=== PATIENT | male | born 1950 | race African-American/Black ===

== ENCOUNTER 2017-10-04 10:00 | Inpatient (IN) | payer MEDICARE, BC ==
[2017-10-04 10:33] VITALS: BMI 31.3
[2017-10-05] MEDS ORDERED: CEFAZOLIN/Water 2 GM/20 ML SYRINGE ONE (05:59)
[2017-10-05] MEDS ORDERED: Albumin 5% 500 ML ONE (06:29)
[2017-10-05] MEDS ORDERED: Midazolam HCl 5 mg/5 ml Vial ONE (06:32)
[2017-10-05] MEDS ORDERED: Fentanyl 250 MCG/5 ML VIAL ONE (06:32)
[2017-10-05] MEDS ORDERED: Dexmedetomidine 200 MCG/2 ML VIAL ONE (06:33)
[2017-10-05] MEDS ORDERED: Vecuronium 10 MG VIAL ONE ×2 (06:33→14:39)
[2017-10-05] MEDS ORDERED: Heparin 10,000 UNITS/1 ML VIAL 30,000 UNITS in Sodium Chloride 0.9% 1,000 ML FS SCH (06:45)
[2017-10-05] MEDS ORDERED: PHENYLEPHRINE-NS 100 MCG/ML 10 ML SYRINGE ONE (09:58)
[2017-10-05 12:22] LABS: Base Excess (BEa) -3.4 mEq/L (0 (+/-) 2.5); CO2 Tension 35.6 mmHg (35.0-45.0); Calcium, Ionized 1.1 mmol/L (1.12-1.30); Hematocrit-ABG 34.2 % (42.0-52.0); Hemoglobin (Hb) 11.6 g/dL (14.0-18.0); O2 Tension (PaO2) 147.2 mmHg (80.0-100.0); Puncture Site ALINE; pH, Arterial 7.39 (7.35-7.45)
[2017-10-05] MEDS ORDERED: Magnesium 2 GM/NS 0.9% 100 ML 2 GM in Premix Bag 1 BAG IVPB SCH (12:57)
[2017-10-05] MEDS ORDERED: hydrALAZINE 20 MG/ML VIAL SLOW IVP PRN (12:57)
[2017-10-05] MEDS ORDERED: CEFAZOLIN/Water 2 GM/20 ML SYRINGE SLOW IVP SCH (12:57)
[2017-10-05] MEDS ORDERED: DOPamine 400 MG/D5W 250 ML 250 ML IVPB PRN (12:57)
[2017-10-05] MEDS ORDERED: HYDROcodone/Acetaminophen 5/325 mg Tablet PO PRN (12:57)
[2017-10-05] MEDS ORDERED: Bisacodyl 10 MG SUPP PR PRN (12:57)
[2017-10-05] MEDS ORDERED: Norepinephrine 8 MG/0.9% NS 250 ML IVPB PRN (12:57)
[2017-10-05] MEDS ORDERED: niCARdipine HCl 25 MG in Sodium Chloride 0.9% 250 ML 240 ML IVPB PRN (12:57)
[2017-10-05] MEDS ORDERED: Fentanyl 100 MCG/2 ML VIAL SLOW IVP PRN ×2 (12:57)
[2017-10-05] MEDS ORDERED: Acetaminophen 325 MG TAB PO PRN (12:57)
[2017-10-05] MEDS ORDERED: Hetastarch 6% 500 ML 500 ML IVPB PRN (12:57)
[2017-10-05] MEDS ORDERED: Nitroglycerin 50 MG/250 ML BOT 250 ML IVPB PRN (12:57)
[2017-10-05] MEDS ORDERED: Promethazine HCl 25 MG/ML VIAL IM PRN (12:57)
[2017-10-05] MEDS ORDERED: Bisacodyl 5 MG TAB PO PRN (12:57)
[2017-10-05] MEDS ORDERED: Post-Op Insulin Drip Protocol IVPB ONE (12:57)
[2017-10-05] MEDS ORDERED: Guaifenesin DM 100-10/5 ML UDCUP PO PRN (12:57)
[2017-10-05] MEDS ORDERED: Mag-Al 1200 mg/1200 mg/30 ML UDCUP PO PRN (12:57)
[2017-10-05 13:07] LABS: #Eosinphils 0.1 thou/uL (0.0-0.7); #Lymphocytes 0.7 thou/uL (1.20-3.40); #Monocytes 0.9 thou/uL (0.11-0.59); #Neutrophils 7.3 thou/uL (1.40-6.50); %Basophils 0.2 % (0.0-1.0); %Eosinophils 1.1 % (0.0-10.0); %Lymphocytes 7.5 % (21.0-51.0); %Monocytes 10.2 % (0.0-10.0); Mean Corpuscular HGB CONC 33.8 g/dL (32.0-36.0); Mean Corpuscular Hemoglobin 31.5 pg (27.0-31.0); Mean Corpuscular Volume 93.4 fl (80.0-94.0); Mean Platelet Volume 6.5 fL (7.4-10.4); Platelet Count 155 thou/uL (130-400); RBC Distribution Width 12.4 % (11.5-14.5)
--- NOTE | 2017-10-05 13:14 | OP ---
DATE OF PROCEDURE: 10/05/2017 PREOPERATIVE DIAGNOSIS: Coronary artery disease. SURGEON: Dr. Efrain Hutchinson PROCEDURE: Coronary bypass graft x4, left internal mammary artery good quality to a severely disease d to distal LAD that was probably 1.5 mm. Saphenous vein good quality to a diseased 1.5 mm high diag onal to a 1.5 mm OM1 and a 1.25 mm OM2. The distal circumflex and right PDA were diffusely and sever samir calcified and could not be redone. I do not foresee reoperation in this gentleman due to poor ta rgets. Following anesthetic induction, the patient was prepped and draped. Dr. Thomas did an endovascu lar vein harvest, right greater saphenous vein while I performed a median sternotomy. After opening the sternum, left internal mammary artery was harvested, widely opening the left pleura. Heparin was given. The mammary was passed posterior to the thymus gland. The aorta had palpable calcification cannulated in a soft spot as was the right atrium cannulated. Cardiopulmonary bypass was instituted. Vessels inspected for grafting. Aorta was cross-clamped and a liter of cold blood cardioplegic giv en through the aortic root. Following completion of this, distal anastomoses were completed. Crossc lamp was removed, partial occluding clamp placed, and 2 proximal anastomoses performed on the aortic root, including the diagonal and the OM2. The OM1 graft was anastomosed to the side of the diagonal graft about 3 cm from the aortic root. The patient was then weaned from cardiopulmonary bypass, miguelito ulas were removed, and protamine was given systemically. Mediastinal and left pleural drains were pl aced, following which the sternum was reapproximated with #7 interrupted wire using vancomycin paste on the edges sternal edges, platelet-enriched blood, and platelet-poor plasma. Subcutaneous tissue a nd skin were closed in layers.
[2017-10-05 13:18] LABS: INR-International Normal Ratio 1.3; PTT 34.8 SEC (22.9-36.1); Prothrombin Time 16.9 SEC (12.0-14.7)
[2017-10-05] MEDS ORDERED: Norepinephrine 8 MG in Sodium Chloride 0.9% 250 ML 242 ML IVPB PRN (13:37)
[2017-10-05 13:38] LABS: Anion Gap 10 mmol/L (10-20); BUN (Urea Nitrogen) 5 mg/dL (8.4-25.7); Calc. Creatinine Clearance 143 mL/min (70-130); Calcium 8.1 mg/dL (7.8-10.44); Carbon Dioxide 21 mmol/L (23-31); Chloride 109 mmol/L (98-107); Estimated GFR-MDRD Greater than 90; Glucose 116 mg/dL (80-115); Potassium 4.3 mmol/L (3.5-5.1); Sodium 136 mmol/L (136-145)
[2017-10-05] MEDS: Lactated Ringer's 1,000 ML IV SCH (13:40)
[2017-10-05] MEDS: CEFAZOLIN/Water 2 GM/20 ML SYRINGE SLOW IVP SCH ×2 (13:41→22:00)
[2017-10-05] MEDS: Ondansetron HCl/PF 4 MG/2 ML Vial IVP PRN (13:44)
[2017-10-05] MEDS ORDERED: Insulin Regular 100 UNITS in Sodium Chloride 0.9% 100 ML IVPB SCH (13:45)
--- NOTE | 2017-10-05 13:52 | RAD ---
AP CHEST: History: Open heart surgery. Date: 10-05-17 Comparison: 03-15-06 FINDINGS: AP chest demonstrates interval sternotomy wire seen. The patient has been intubated. Right subclavian central line is seen. No evidence of pneumonia or pneumothorax is seen. IMPRESSION: Status post thoracotomy. No acute intrathoracic abnormality is seen. POS: [facility]
[2017-10-05 14:20] LABS: Actual Bicarbonate (HCO3a) 20.6 mEq/L (22-26); Base Excess (BEa) -4.4 mEq/L (0 (+/-) 2.5); CO2 Tension 37.6 mmHg (35.0-45.0); Calcium, Ionized 1.1 mmol/L (1.12-1.30); Hematocrit-ABG 36.4 % (42.0-52.0); Hemoglobin (Hb) 12.2 g/dL (14.0-18.0); O2 Tension (PaO2) 105.3 mmHg (80.0-100.0); Puncture Site ALINE; pH, Arterial 7.36 (7.35-7.45)
[2017-10-05] MEDS ORDERED: Papaverine 60 MG/2 ML VIAL ONE (14:37)
[2017-10-05] MEDS ORDERED: Magnesium 5 GM/10 ML VIAL ONE (14:37)
[2017-10-05] MEDS ORDERED: Protamine Sulfate 250 MG/25 ML VIAL ONE (14:37)
[2017-10-05] MEDS ORDERED: Potassium Chloride 60 MEQ/30 ML VIAL ONE (14:37)
[2017-10-05] MEDS ORDERED: Nitroglycerin 50 MG/250 ML BOT ONE (14:37)
[2017-10-05] MEDS ORDERED: Cardioplegic Soln 1,000 ML BAG ONE (14:37)
[2017-10-05] MEDS ORDERED: Sodium Bicarb 50 MEQ/50 ML VIAL ONE (14:37)
[2017-10-05] MEDS ORDERED: Sodium Bicarb 50 MEQ/50 ML Abboject 8.4% SYRINGE ONE (14:37)
[2017-10-05] MEDS ORDERED: Thrombin 5000 UNITS/5 ML VIAL ONE (14:37)
[2017-10-05] MEDS ORDERED: Heparin 5,000 UNITS/ML VIAL ONE (14:37)
[2017-10-05] MEDS ORDERED: Heparin 30,000 units/30 ml VIAL ONE (14:37)
[2017-10-05] MEDS ORDERED: Lidocaine 2% PF 100 mg/5 ml Syringe ONE (14:37)
[2017-10-05] MEDS ORDERED: Calcium Chloride 1 GM/10 ML Abboject SYRINGE ONE (14:37)
[2017-10-05] MEDS ORDERED: Aminocaproic Acid 5 GM/20 ML VIAL ONE (14:37)
[2017-10-05] MEDS ORDERED: PROPOFOL 200 MG/20 ML VIAL ONE (14:39)
[2017-10-05] MEDS ORDERED: Lidocaine 1% PF 5 ML VIAL ONE (14:39)
[2017-10-05] MEDS: Ketorolac Tromethamine 30 MG/ML VIAL IVP SCH ×2 (17:36→23:48)
[2017-10-05 18:50] LABS: Hemoglobin 12.3 g/dL (14.0-18.0)
[2017-10-05 19:01] LABS: Potassium 4.1 mmol/L (3.5-5.1)
--- NOTE | 2017-10-05 19:35 | CON ---
DATE OF CONSULT: 10/05/17 HISTORY OF PRESENT ILLNESS: The patient is a 67-year-old gentleman with a history of coronary artery disease who underwent tobias ry bypass graft surgery. The patient was seen in 2016 and underwent a cardiac catheterization. He w as found to have normal left ventricular ejection fraction 55% to 60%. The patient had a 70% mid LAD lesion, diffuse distal LAD disease. Left circumflex artery had a 90% lesion in the first obtuse mar ginal branch and a 90% distal lesion. The right coronary artery had a 20% proximal, a 99% mid stenosi s, 70% distal stenosis. The patient today underwent coronary bypass graft surgery. PAST MEDICAL HISTORY: 1. Coronary artery disease. 2. Hypertension. 3. Dyslipidemia. 4. Prostate carcinoma. 5. Gout. 6. Arthritis PAST SURGICAL HISTORY: He has had coronary bypass graft surgery. He has had wrist surgery and he has had hip surgery. SOCIAL HISTORY: He quit smoking 1 month ago. MEDICATIONS: See nursing list. PHYSICAL EXAMINATION: GENERAL: This is a middle-aged gentleman who is drowsy with a blood pressure of 115/49. NECK: No jugular vein distention. LUNGS: Clear to auscultation. HEART: Regular rate and rhythm, normal S1, S2. ABDOMEN: Distended. EXTREMITIES: Showed trace edema. LABORATORY: His white blood count 9.0, hemoglobin 12.0, hematocrit 35.5, platelets are 155. Sodium 136, potassi um 4.3, chloride 109, bicarbonate 21, BUN 5, creatinine 0.67. EKG revealed normal sinus rhythm, right bundle branch block, left anterior fascicular block. IMPRESSION: 1. Severe coronary artery disease. 2. Status coronary bypass surgery x4. 3. Hypertension. 4. Noncompliance. This gentleman presents status post coronary bypass surgery. From a cardiac standpoint, he needs to b e on antiplatelet medication, high dose statin therapy, beta alon therapy. We will follow this pat ient with you through his hospitalization.
[2017-10-05] MEDS: Atorvastatin Calcium 40 MG TAB PO SCH (20:32)
[2017-10-05] MEDS: Famotidine/PF 20 mg/2ml Vial SLOW IVP SCH (20:32)
[2017-10-05] MEDS: Morphine 4 MG/ML VIAL IV PRN (20:47)
[2017-10-05] MEDS ORDERED: Atorvastatin Calcium 10 MG TAB PO SCH ×2 (21:00)
[2017-10-06] MEDS: Morphine 4 MG/ML VIAL IV PRN ×2 (01:45→05:30)
[2017-10-06] MEDS: HYDROcodone/Acetaminophen 5/325 mg Tablet PO PRN ×3 (02:04→16:13)
[2017-10-06] MEDS: Ondansetron HCl/PF 4 MG/2 ML Vial IVP PRN (02:05)
[2017-10-06] MEDS: Lactated Ringer's 1,000 ML IV SCH (03:38)
[2017-10-06 05:44] LABS: #Lymphocytes 1.2 thou/uL (1.20-3.40); #Monocytes 1.2 thou/uL (0.11-0.59); #Neutrophils 6.5 thou/uL (1.40-6.50); %Basophils 0.2 % (0.0-1.0); %Eosinophils 0.3 % (0.0-10.0); %Monocytes 13.3 % (0.0-10.0); %Neutrophils 73.2 % (42.0-75.0); Hemoglobin 11.2 g/dL (14.0-18.0); Mean Corpuscular Hemoglobin 31.6 pg (27.0-31.0); Mean Corpuscular Volume 93.1 fl (80.0-94.0); Mean Platelet Volume 6.5 fL (7.4-10.4); Platelet Count 169 thou/uL (130-400); RBC Distribution Width 12.5 % (11.5-14.5); Red Blood Cell (RBC) Count 3.54 mill/uL (4.70-6.10); White Blood Cell (WBC) Count 8.8 thou/uL (4.8-10.8)
[2017-10-06 06:03] LABS: Anion Gap 11 mmol/L (10-20); BUN (Urea Nitrogen) 6 mg/dL (8.4-25.7); Calc. Creatinine Clearance 110 mL/min (70-130); Calcium 8.2 mg/dL (7.8-10.44); Carbon Dioxide 24 mmol/L (23-31); Chloride 104 mmol/L (98-107); Estimated GFR-MDRD Greater than 90; Glucose 92 mg/dL (80-115); Potassium 3.6 mmol/L (3.5-5.1); Sodium 135 mmol/L (136-145)
[2017-10-06] MEDS: Ketorolac Tromethamine 30 MG/ML VIAL IVP SCH ×4 (06:04→23:19)
[2017-10-06] MEDS: CEFAZOLIN/Water 2 GM/20 ML SYRINGE SLOW IVP SCH (06:04)
[2017-10-06] MEDS ORDERED: Metoprolol Tartrate 25 MG TAB PO SCH (09:00)
--- NOTE | 2017-10-06 09:16 | RAD ---
PORTABLE CHEST: History: Post op sternotomy. Comparison: 10-05-17 FINDINGS: The lungs are clear. No infiltrate or significant effusion. Heart is mildly enlarged with post op tray rnotomy change. Central line appears in adequate position with the tip overlying the right atrium. IMPRESSION: No acute lung process. POS: [facility]
[2017-10-06] MEDS: Famotidine 20 MG TAB PO SCH ×2 (09:39→20:41)
[2017-10-06] MEDS: Aspirin 325 MG TAB PO SCH (09:39)
[2017-10-06] MEDS: Famotidine/PF 20 mg/2ml Vial SLOW IVP SCH (11:19)
[2017-10-06] MEDS: Potassium Chloride 20 MEQ/100 ML PREMIX BAG IVPB PRN (16:13)
--- NOTE | 2017-10-06 20:20 | EKG ---
Test Reason : POST CABG Blood Pressure : / mmHG Vent. Rate : 063 BPM Atrial Rate : 063 BPM P-R Int : 182 ms QRS Dur : 136 ms QT Int : 462 ms P-R-T Axes : 058 -65 -48 degrees QTc Int : 472 ms Normal sinus rhythm Left axis deviation Right bundle branch block Minimal voltage criteria for LVH, may be normal variant T wave abnormality, consider inferior ischemia Abnormal ECG When compared with ECG of 04-OCT-2017 11:10, (Unconfirmed) T wave inversion now evident in Inferior leads Nonspecific T wave abnormality, worse in Lateral leads Confirmed by VIANNEY STILES (2) on 10/06/2017 8:20:38 PM Referred By: REBECA Confirmed By:VIANNEY STILES
[2017-10-06] MEDS: Atorvastatin Calcium 40 MG TAB PO SCH (20:40)
[2017-10-06] MEDS ORDERED: Famotidine 20 MG TAB PO SCH (21:00)
[2017-10-07 04:44] LABS: #Eosinphils 0.1 thou/uL (0.0-0.7); #Lymphocytes 1.1 thou/uL (1.20-3.40); #Monocytes 1.4 thou/uL (0.11-0.59); #Neutrophils 7.4 thou/uL (1.40-6.50); %Basophils 0.3 % (0.0-1.0); %Eosinophils 1.3 % (0.0-10.0); %Lymphocytes 10.9 % (21.0-51.0); %Monocytes 13.8 % (0.0-10.0); %Neutrophils 73.6 % (42.0-75.0); Hemoglobin 11.3 g/dL (14.0-18.0); Mean Corpuscular HGB CONC 34.1 g/dL (32.0-36.0); Mean Corpuscular Hemoglobin 31.6 pg (27.0-31.0); Mean Corpuscular Volume 92.6 fl (80.0-94.0); Mean Platelet Volume 6.9 fL (7.4-10.4); Platelet Count 159 thou/uL (130-400); RBC Distribution Width 12.3 % (11.5-14.5); Red Blood Cell (RBC) Count 3.57 mill/uL (4.70-6.10)
[2017-10-07 04:53] LABS: Anion Gap 11 mmol/L (10-20); BUN (Urea Nitrogen) 8 mg/dL (8.4-25.7); Calc. Creatinine Clearance 107 mL/min (70-130); Calcium 8.7 mg/dL (7.8-10.44); Carbon Dioxide 26 mmol/L (23-31); Chloride 100 mmol/L (98-107); Estimated GFR-MDRD Greater than 90; Glucose 112 mg/dL (80-115); Potassium 3.7 mmol/L (3.5-5.1); Sodium 133 mmol/L (136-145)
[2017-10-07] MEDS: Potassium Chloride 20 MEQ/100 ML PREMIX BAG IVPB PRN (06:35)
[2017-10-07] MEDS: Ketorolac Tromethamine 30 MG/ML VIAL IVP SCH ×3 (06:35→18:33)
[2017-10-07] MEDS: Aspirin 325 MG TAB PO SCH (08:34)
[2017-10-07] MEDS: Famotidine 20 MG TAB PO SCH ×2 (08:34→21:41)
--- NOTE | 2017-10-07 09:28 | RAD ---
CHEST ONE VIEW: History: Status post open heart surgery. Comparison: 10-06-17 FINDINGS: Re-demonstration of sternotomy wires and right sided central venous catheter. Removal of left sided c hest tube. No pneumothorax. Stable configuration of the cardiac silhouette. IMPRESSION: Findings compatible with recent open heart surgery. POS: [facility]
[2017-10-07] MEDS ORDERED: Lorazepam 2 MG/ML VIAL ONE (11:57)
[2017-10-07] MEDS ORDERED: Lorazepam 2 MG/ML VIAL SLOW IVP SCH ×3 (12:30→15:00)
[2017-10-07] MEDS ORDERED: Haloperidol Lactate 5 MG/ML VIAL IVPB SCH (14:45)
[2017-10-07] MEDS ORDERED: Haloperidol Lactate 5 MG/ML VIAL ONE (14:55)
[2017-10-07] MEDS: Lorazepam 2 MG/ML VIAL SLOW IVP PRN (19:36)
--- NOTE | 2017-10-07 19:42 | CON ---
DATE OF CONSULTATION: 10/07/2017 HISTORY OF PRESENT ILLNESS: Sofiya Rinaldi is a 67-year-old male who was in the Critical Care Unit after heart surgery. He became confused today, I was consulted. He has never been an inpatient here. It looks like, reviewing records, that he is followed by Dr. Luis Manuel ahn. He tells me he has had 6 heart attacks in the past. He actually has had a cardiac catheterization in 2016 showing a 70% LAD mid lesion, diffuse distal LA D, 90% circumflex at the first obtuse marginal, a 90% distal lesion, and a 99% right coronary. This is from reviewing Dr. Maza's note. This is because he could not give me a history. Apparently, he underwent coronary bypass grafting and has been cared for in the ICU since. He is ext ubated. His tubes are out. He is getting up, wanted to get dressed and go home. He denies drinking. He says he quit smoking 10 years ago. He has told other physicians he does marie merino. PAST MEDICAL HISTORY: Remarkable for lipid disorder, hypertension, prostate cancer, gout, and arthri tis. PAST SURGICAL HISTORY: He has had wrist surgery and hip surgery in the past. PHYSICAL EXAMINATION: GENERAL: He is in no distress. VITAL SIGNS: Heart rate is 92, respiratory rate is 20, oximetry is 99 on room air. LUNGS: Clear. HEART: Regular rhythm. S1 and S2 are normal. ABDOMEN: Soft and nontender. EXTREMITIES: Without clubbing, cyanosis, or edema. LABORATORY DATA: White count 10, hemoglobin 11.3, platelets 159. Sodium 133, potassium 3.7, chloride 100, bicarbonate 26, BUN 8, creatinine 0.76. IMPRESSION: 1. Status post coronary artery bypass grafting. 2. ? alcohol withdrawal versus just a critical illness, psychosis. He will be given one dose of IV Haldol with 1 mg of IV Ativan since he is trying to walk out of the I CU. We will put him on routine IM Haldol after that with p.r.n. Ativan. Critical care time, 30 minutes.
[2017-10-07] MEDS: Atorvastatin Calcium 40 MG TAB PO SCH (21:41)
[2017-10-08] MEDS: Ketorolac Tromethamine 30 MG/ML VIAL IVP SCH ×2 (00:40→06:50)
[2017-10-08] MEDS: Lorazepam 2 MG/ML VIAL SLOW IVP PRN (00:41)
[2017-10-08 04:32] LABS: #Eosinphils 0.2 thou/uL (0.0-0.7); #Monocytes 1.1 thou/uL (0.11-0.59); #Neutrophils 7.6 thou/uL (1.40-6.50); %Basophils 0.3 % (0.0-1.0); %Eosinophils 1.8 % (0.0-10.0); %Lymphocytes 9.9 % (21.0-51.0); %Monocytes 11.4 % (0.0-10.0); %Neutrophils 76.7 % (42.0-75.0); Mean Corpuscular Hemoglobin 31.3 pg (27.0-31.0); Mean Corpuscular Volume 91.9 fl (80.0-94.0); Mean Platelet Volume 6.8 fL (7.4-10.4); Platelet Count 185 thou/uL (130-400); RBC Distribution Width 12.2 % (11.5-14.5); Red Blood Cell (RBC) Count 3.51 mill/uL (4.70-6.10)
[2017-10-08 04:34] LABS: Anion Gap 10 mmol/L (10-20); BUN (Urea Nitrogen) 8 mg/dL (8.4-25.7); Calc. Creatinine Clearance 135 mL/min (70-130); Calcium 9.1 mg/dL (7.8-10.44); Carbon Dioxide 26 mmol/L (23-31); Chloride 102 mmol/L (98-107); Estimated GFR-MDRD Greater than 90; Glucose 95 mg/dL (80-115); Potassium 4.2 mmol/L (3.5-5.1); Sodium 134 mmol/L (136-145)
[2017-10-08] MEDS ORDERED: Milk Of Magnesia 30 ML UDCUP PO PRN (07:14)
[2017-10-08] MEDS ORDERED: Bisacodyl 10 MG SUPP PR PRN (07:14)
[2017-10-08] MEDS ORDERED: Nitroglycerin 0.4 MG TAB (25 Tab Bottle) SL PRN (07:14)
[2017-10-08] MEDS ORDERED: Mineral Oil ENEMA PR PRN (07:14)
[2017-10-08] MEDS ORDERED: HYDROcodone/Acetaminophen 5/325 mg Tablet PO PRN (07:14)
[2017-10-08] MEDS ORDERED: Guaifenesin DM 100-10/5 ML UDCUP PO PRN (07:14)
[2017-10-08] MEDS ORDERED: Mag-Al 1200 mg/1200 mg/30 ML UDCUP PO PRN (07:14)
[2017-10-08] MEDS ORDERED: Acetaminophen 325 MG TAB PO PRN (07:14)
[2017-10-08] MEDS ORDERED: Bisacodyl 5 MG TAB PO PRN (07:14)
[2017-10-08] MEDS: Aspirin 325 MG TAB PO SCH (07:49)
[2017-10-08] MEDS: Famotidine 20 MG TAB PO SCH ×2 (07:50→20:51)
--- NOTE | 2017-10-08 08:39 | RAD ---
PORTABLE AP CHEST RADIOGRAPH: Date: 10-08-17 History: Post open heart surgery. Comparison: 10-07-17 FINDINGS: Post-surgical change related to CABG are again noted. The right subclavian central venous catheter is unchanged in position. Cardiac silhouette is stable in size and magnified by projection. There is mi ld elevation of the right hemidiaphragm. Lungs otherwise appear clear. The pulmonary vasculature is w ithin normal limits. There has been no interval change from prior examination. IMPRESSION: Stable chest. POS: [facility]
--- NOTE | 2017-10-08 11:39 | PRG ---
DATE OF SERVICE: 10/08/2017 SUBJECTIVE: Sofiya Rinaldi is more cooperative today. PHYSICAL EXAMINATION: VITAL SIGNS: He is afebrile, heart rate 83, respiratory rate 17, oximetry is 96% on room air, blood pressure 160/84. LUNGS: Clear. HEART: Regular rhythm. S1 and S2 are normal. ABDOMEN: Soft and nontender. EXTREMITIES: Without clubbing, cyanosis, or edema. LABORATORY DATA: White count 10, hemoglobin 11, platelets 185. Sodium 134, potassium 4.2, chloride 102, bicarb 26, BUN 8, creatinine 0.69. IMPRESSION: 1. Status post coronary artery bypass grafting. 2. Encephalopathy (ICE psychosis versus ? alcohol withdrawal), much better today. He is stable to emili lin out of the Critical Care environment.
[2017-10-08] MEDS: Atorvastatin Calcium 40 MG TAB PO SCH (20:51)
[2017-10-09] MEDS: Aspirin 325 MG TAB PO SCH (07:28)
[2017-10-09] MEDS: Famotidine 20 MG TAB PO SCH ×2 (07:29→21:19)
--- NOTE | 2017-10-09 11:22 | PRG ---
DATE OF SERVICE: 10/09/2017 SUBJECTIVE: He is doing well. He has no complaints. PHYSICAL EXAMINATION: VITAL SIGNS: On exam, temperature is 98.0, pulse 96, respirations 16, O2 sat 96%. HEENT: Unremarkable. NECK: No JVD. CHEST: Clear. CARDIAC: S1 and S2, regular. ABDOMEN: Soft. EXTREMITIES: No edema. LABORATORY DATA - no new labs were done today. ASSESSMENT: 1. Status post coronary artery bypass grafting surgery. 2. Improved encephalopathy. PLAN: I think he is being transferred out to the floor. There are no acute pulmonary concerns. We are available for help as needed.
--- NOTE | 2017-10-09 14:25 | PDOC.CTH ---
<Nichole Mckinney - Last Filed: 10/09/17 14:24> Cardiology Progress Note - Subjective The pt seen and examined. No overnight events. No cardiac complaints. He has walked to nursing station today without any difficulties. - Objective Vital Signs Temp Pulse Pulse Pulse Resp BP BP 10/09/17 11:25 99 85 180/91 H 170/92 H 10/09/17 11:01 98.2 F 91 18 10/09/17 10:58 98.2 F 91 18 10/09/17 08:25 94 94 164/81 H 145/75 H 10/09/17 08:00 98.0 F 96 16 10/09/17 07:30 98.0 F 10/09/17 04:00 98.4 F BP Pulse Ox 10/09/17 11:25 10/09/17 11:01 98 10/09/17 10:58 174/90 H 98 10/09/17 08:25 10/09/17 08:00 96 10/09/17 07:30 10/09/17 04:00 94 L Weight 187 lb 13.341 oz 10/08/17 10/09/17 10/10/17 06:59 06:59 06:59 Intake Total 710 730 240 Output Total 3915 1500 Balance -3205 -770 240 - Physical Examination General/Neuro: alert & oriented x3 Neck: no JVD present Lungs: CTA (diminished at bases) Heart: RRR Abdomen: soft Extremities: other: (No edema) - Telemetry Telemetry Rhythm: SR - Labs Result Diagrams: 10/08/17 04:12 10/08/17 04:12 - Assessment/Plan 1. Severe 3V CAD with s/p CABG x 4 on 10/05/17 with ABDI-distal LAD, saph-Diag, OM1, and OM2. - stable with ASA 325mg, Lipitor 40mg daily, and Metoprolol 50mg daily. Start Lisinopril 10mg daily; cont. to monitor on tele 2. HTN - start Lisinopril 10mg daily; cont. to monitor BP 3. Hyperlipidemia - on Statin 4. Prostate Carcinoma - 5. Ex smoker, quit 1 month ago - Smoking cessation education given MAR reviewed Review of Systems - Review of Systems Constitutional: reports: no symptoms reported EENTM: reports: no symptoms reported Respiratory: reports: no symptoms reported Cardiac (ROS): reports: no symptoms reported ABD/GI: reports: no symptoms reported : reports: no symptoms reported Musculoskeletal: reports: no symptoms reported <Colton Rose - Last Filed: 10/09/17 23:06> Cardiology Progress Note - Objective Vital Signs Temp Pulse Pulse Pulse Resp BP BP 10/09/17 21:15 98.3 F 91 16 10/09/17 16:28 99.4 F 84 19 10/09/17 11:25 99 85 180/91 H 170/92 H BP Pulse Ox 10/09/17 21:15 138/79 97 10/09/17 16:28 155/78 H 96 10/09/17 11:25 Weight 187 lb 13.341 oz 10/08/17 10/09/17 10/10/17 06:59 06:59 06:59 Intake Total 710 730 960 Output Total 3915 1500 250 Balance -3205 -770 710 - Labs Result Diagrams: 10/08/17 04:12 10/08/17 04:12 - Assessment/Plan Pt. was seen and eval. by me. I agree with the A/P by the SLIVER MACHINE OPERATOR. We have discussed the pt. and the plan
[2017-10-09] MEDS: Atorvastatin Calcium 40 MG TAB PO SCH (21:20)
[2017-10-10] MEDS ORDERED: hydrALAZINE 20 MG/ML VIAL SLOW IVP PRN (01:01)
[2017-10-10] MEDS ORDERED: Sodium Chloride 0.9% 10 ML ONE (07:36)
[2017-10-10] MEDS ORDERED: Lisinopril 10 MG TAB PO SCH ×2 (09:00→11:10)
[2017-10-10] MEDS: Aspirin 325 MG TAB PO SCH (09:32)
[2017-10-10] MEDS: Famotidine 20 MG TAB PO SCH (09:32)
--- NOTE | 2017-10-10 10:42 | PDOC.CTH ---
Cardiology Progress Note - Objective Vital Signs Temp Pulse Resp BP BP Pulse Ox 10/10/17 09:33 168/79 H 10/10/17 08:58 98.3 F 98 19 168/79 H 98 10/10/17 04:00 98.6 F 89 16 135/61 95 10/10/17 01:05 90 172/84 H 10/10/17 00:00 98.8 F 90 20 191/92 H 95 Weight 198 lb 9 oz 10/09/17 10/10/17 10/11/17 06:59 06:59 06:59 Intake Total 730 1200 Output Total 1500 250 Balance -770 950 - Physical Examination General/Neuro: alert & oriented x3 Neck: carotid US brisk Lungs: CTA Heart: RRR Abdomen: NT/ND, soft - Labs Result Diagrams: 10/08/17 04:12 10/08/17 04:12 - Assessment/Plan 1. Severe 3V CAD with s/p CABG x 4 on 10/05/17 with ABDI-distal LAD, saph-Diag, OM1, and OM2. - stable with ASA 325mg, Lipitor 40mg daily, and Metoprolol 50mg daily. Cont. Lisinopril 10mg daily; okay to d/c to home. F/U with Dr. Maza in 1 month. 2. HTN - on Lisinopril 10mg daily; increase to 20mg qd. cont. to monitor BP 3. Hyperlipidemia - on Statin 4. Prostate Carcinoma - 5. Ex smoker, quit 1 month ago - Smoking cessation education given MAR reviewed
[2017-10-10] MEDS ORDERED: Lisinopril 20 MG TAB PO SCH (11:00)
[2017-10-10 12:17] VITALS: BP 157/75; TEMP 98.1
[2017-10-11] MEDS ORDERED: Lisinopril 20 MG TAB PO SCH (09:00)
[2017-10-12 11:43] LABS: Actual Bicarbonate (HCO3a) 22.3 mEq/L (22-26); Base Excess (BEa) -1.1 mEq/L (0 (+/-) 2.5); CO2 Tension 33.4 mmHg (35.0-45.0); Hemoglobin (Hb) 13.3 g/dL (14.0-18.0); O2 Tension (PaO2) 431.6 mmHg (80.0-100.0); pH, Arterial 7.44 (7.35-7.45)
[2017-10-12 11:44] LABS: Base Excess (BEa) -2.7 mEq/L (0 (+/-) 2.5); CO2 Tension 32.9 mmHg (35.0-45.0); Hematocrit-ABG 38.3 % (42.0-52.0); Hemoglobin (Hb) 12.4 g/dL (14.0-18.0); O2 Tension (PaO2) 497.1 mmHg (80.0-100.0); pH, Arterial 7.42 (7.35-7.45)
[2017-10-12 11:44] LABS: Analyzer IN Cardio OR; Calcium, Ionized 1.2 mmol/L (1.12-1.30); Puncture Site ALINE
[2017-10-12 11:45] LABS: Actual Bicarbonate (HCO3a) 23.7 mEq/L (22-26); Base Excess (BEa) -2.3 mEq/L (0 (+/-) 2.5); CO2 Tension 46.1 mmHg (35.0-45.0); Hematocrit-ABG 27.3 % (42.0-52.0); Hemoglobin (Hb) 9.4 g/dL (14.0-18.0); O2 Tension (PaO2) 385.1 mmHg (80.0-100.0); pH, Arterial 7.33 (7.35-7.45)
[2017-10-12 11:45] LABS: Analyzer IN Cardio OR; Calcium, Ionized 1.2 mmol/L (1.12-1.30); Puncture Site ALINE
[2017-10-12 11:46] LABS: Analyzer IN Cardio OR; Puncture Site ALINE
[2017-10-12 11:46] LABS: Actual Bicarbonate (HCO3v) 25 mEq/L (22-26); Analyzer IN Cardio OR; Base Excess -1.6 mEq/L (0 (+/- 2.5)); pH (venous) 7.31 (7.35-7.45)
[2017-10-12 11:47] LABS: Calcium, Ionized 1.06 mmol/L (1.16-1.32); Chloride (ABG LAB) 99 mmol/L (98-106); Hematocrit-VBG 23.2 % (37-51); Hemoglobin (Hb) 8.3 g/dL (12.6-17.4); Potassium - ABG Lab 4.4 mmol/L (3.70-5.30); Sodium 135.6 mmol/L (133-146)
[2017-10-12 12:58] LABS: Analyzer IN Cardio OR
[2017-10-12 12:59] LABS: Actual Bicarbonate (HCO3v) 25 mEq/L (22-26); Base Excess -1.5 mEq/L (0 (+/- 2.5)); Calcium, Ionized 1.09 mmol/L (1.16-1.32); Chloride (ABG LAB) 99 mmol/L (98-106); Hematocrit-VBG 28.4 % (37-51); Hemoglobin (Hb) 9.1 g/dL (12.6-17.4); Potassium - ABG Lab 4.7 mmol/L (3.70-5.30); Sodium 135.4 mmol/L (133-146); pH (venous) 7.31 (7.35-7.45)
[2017-10-12 13:01] LABS: Base Excess (BEa) -2.8 mEq/L (0 (+/-) 2.5); CO2 Tension 44.9 mmHg (35.0-45.0); Hematocrit-ABG 27.9 % (42.0-52.0); Hemoglobin (Hb) 9.1 g/dL (14.0-18.0); pH, Arterial 7.33 (7.35-7.45)
[2017-10-12 13:02] LABS: Analyzer IN Cardio OR; Calcium, Ionized 1.1 mmol/L (1.12-1.30); Puncture Site ALINE
[2017-10-12 13:02] LABS: Actual Bicarbonate (HCO3a) 20.9 mEq/L (22-26); Base Excess (BEa) -3.3 mEq/L (0 (+/-) 2.5); CO2 Tension 34.4 mmHg (35.0-45.0); Hematocrit-ABG 31.7 % (42.0-52.0); Hemoglobin (Hb) 10.6 g/dL (14.0-18.0); O2 Tension (PaO2) 178.6 mmHg (80.0-100.0)
[2017-10-12 13:03] LABS: Analyzer IN Cardio OR; Calcium, Ionized 1.2 mmol/L (1.12-1.30); Puncture Site ALINE
== END 2017-10-10 14:13 | disposition home or self-care (01) | DRG 235 ==
LOC: SURG A 10-05 05:32 → CCU 10-05 11:31 → 2NO 10-09 11:03
PROVIDERS: ADMIT Thoracic Surgery (Cardiothoracic Vascular Surgery); ATTEND Thoracic Surgery (Cardiothoracic Vascular Surgery)
PROC: 02100Z9 Bypass Coronary Artery, One Artery from Left Internal Mammary, Open Approach (ICD-10-PCS; principal; 2017-10-05)
PROC: 021209W Bypass Coronary Artery, Three Arteries from Aorta with Autologous Venous Tissue, Open Approach (ICD-10-PCS; 2017-10-05)
PROC: 06BP3ZZ Excision of Right Saphenous Vein, Percutaneous Approach (ICD-10-PCS; 2017-10-05)
PROC: 5A1221Z Performance of Cardiac Output, Continuous (ICD-10-PCS; 2017-10-05)
DX: I25.10 Atherosclerotic heart disease of native coronary artery without angina pectoris (principal); G93.40 Encephalopathy, unspecified; F05 Delirium due to known physiological condition; I10 Essential (primary) hypertension; Z85.46 Personal history of malignant neoplasm of prostate; M10.9 Gout, unspecified; M19.90 Unspecified osteoarthritis, unspecified site; Z91.19 Patient's noncompliance with other medical treatment and regimen; I70.228 Atherosclerosis of native arteries of extremities with rest pain, other extremity; F17.210 Nicotine dependence, cigarettes, uncomplicated; E78.2 Mixed hyperlipidemia
CPT/HCPCS: 36415; 36416; 71045; 80048; 82805; 85025; 85610; 85730; 86850; 86900; 86901; 86922; 93005; 93010; 93798; 94002; 94150; 94640; A4216; J0360; J1630; J1642; J1644; J1815; J1885; J2001; J2060; J2250; J2270; J2405; J2440; J2704; J2720; J3010; J3370; J3475; J3480; J7050; J7620; P9045; S0017; S0028

== ENCOUNTER 2017-10-04 10:12 | Outpatient (CLI) | payer MEDICARE, BC ==
[2017-10-04 12:29] LABS: Hemoglobin 14.5 g/dL (14.0-18.0); Mean Corpuscular HGB CONC 33.9 g/dL (32.0-36.0); Mean Corpuscular Hemoglobin 31.3 pg (27.0-31.0); Mean Corpuscular Volume 92.3 fl (80.0-94.0); Mean Platelet Volume 6.6 fL (7.4-10.4); Platelet Count 269 thou/uL (130-400); RBC Distribution Width 12.5 % (11.5-14.5); Red Blood Cell (RBC) Count 4.63 mill/uL (4.70-6.10); White Blood Cell (WBC) Count 7.2 thou/uL (4.8-10.8)
[2017-10-04 12:50] LABS: Anion Gap 9 mmol/L (10-20); BUN (Urea Nitrogen) 7 mg/dL (8.4-25.7); Calc. Creatinine Clearance 0 mL/min (70-130); Calcium 9.8 mg/dL (7.8-10.44); Carbon Dioxide 29 mmol/L (23-31); Chloride 100 mmol/L (98-107); Estimated GFR-MDRD Greater than 90; Glucose 87 mg/dL (80-115); Potassium 4.4 mmol/L (3.5-5.1); Sodium 134 mmol/L (136-145)
--- NOTE | 2017-10-06 20:13 | EKG ---
Test Reason : Blood Pressure : / mmHG Vent. Rate : 070 BPM Atrial Rate : 070 BPM P-R Int : 168 ms QRS Dur : 148 ms QT Int : 434 ms P-R-T Axes : 068 -58 023 degrees QTc Int : 468 ms Normal sinus rhythm Right bundle branch block Left anterior fascicular block Bifascicular block Left ventricular hypertrophy with QRS widening Abnormal ECG When compared with ECG of 08-JUL-2010 08:47, T wave inversion no longer evident in Anterior leads Confirmed by VIANNEY STILES (2) on 10/06/2017 8:12:55 PM Referred By: GURWINDER Confirmed By:VIANNEY STILES
== END 2017-10-04 10:13 | disposition home or self-care (01) ==
LOC: LABBT 10:12
PROVIDERS: ATTEND Thoracic Surgery (Cardiothoracic Vascular Surgery)
DX: Z01.818 Encounter for other preprocedural examination (principal); I25.10 Atherosclerotic heart disease of native coronary artery without angina pectoris
CPT/HCPCS: 86850; 86900; 86901; 86922; 93005; 93010

== ENCOUNTER 2018-04-08 07:36 | Outpatient (CLI) | payer MEDICARE, BC ==
[2018-04-08 08:23] LABS: Estimated GFR-MDRD - POC Greater than 90
--- NOTE | 2018-04-08 11:57 | CT ---
CT ANGIOGRAM OF ABDOMINAL AORTA WITH BILATERAL LOWER EXTREMITY RUNOFF: Date: 04/08/18 HISTORY: Peripheral arterial disease. Coronary artery disease. Atherosclerosis. COMPARISON: None. CORRELATION: Abdomen and pelvic CT dated 01/08/11. TECHNIQUE: CT angiogram of the abdominal aorta and bilateral lower extremity runoff is performed in the axial pl ane. Three-dimensional reformatted images are submitted for interpretation. FINDINGS: Lung bases are clear. Heart size normal. No significant pericardial fluid. There are coronary artery calcifications. Portal vein is patent. Unremarkable gallbladder. Liver, spleen, and adrenal glands have appropriate a rterial phase enhancement. There is fullness in the head of the pancreas, unchanged from the previous examination. There is slight prominence of the pancreatic duct also, unchanged. No hepatic masses. Symmetric enhancement of the kidneys. Bilaterally, no obstructive uropathy. No gastrohepatic, retrocrural, or periportal lymphadenopathy. No mesenteric mass, lymphadenopathy, free air, or free fluid. Limited evaluation of the alimentary canal by lack of oral contrast. Gastric mucosa is unremarkable. Multiple small bowel loops are noted and are normal in caliber. Ileocecal junction is normal. Normal caliber appendix. Diverticulosis. No diverticulitis. CT PELVIS: Limited evaluation due to beam attenuation artifact. There is mucosal thickening of the urinary bladd er. No pelvic mass, lymphadenopathy, free air, or free fluid. Right hip prosthesis identified. There is chronic change involving the left acetabulum and left hip, likely on the basis of degenerative sara nge, as well as possibly a component of avascular necrosis or sequelae from remote joint infection. C orrelate clinically. CT ANGIOGRAM: Limited evaluation due to timing of bolus. The descending thoracic aorta and abdominal aorta do demon strate atherosclerosis without evidence of significant occlusion. Celiac artery origin and superior m esenteric artery origin are normal in caliber. There is a patent left and right renal artery. Inferio r mesenteric artery origin is unremarkable. There is extensive atherosclerosis with what appears to be complete occlusion of the proximal right c ommon iliac artery. There is severe stenosis of the left common iliac artery. There is complete occlu jesús of bilateral internal iliac arteries and proximal external iliac arteries. Significant disease i nvolving bilateral mid to distal external iliac arteries. RIGHT LOWER EXTREMITY: Severe atherosclerosis with what appears to be near complete occlusion of the common femoral artery, profunda femoral artery, and superficial femoral artery. There is some recanalization of the poplitea l artery via collaterals. There is still evidence of significant multisegment severe stenosis involvi ng the popliteal artery and the entire proximal arterial trifurcation. There is short segment severe stenosis throughout the right lower extremity arterial trifurcation. LEFT LOWER EXTREMITY: There is atherosclerotic disease of the common femoral artery with multisegment moderate to severe st enosis. There is severe stenosis and decreased enhancement involving the profunda femoral artery, as well as superficial femoral artery. There is long segment severe stenosis in the superficial femoral artery. There is also significant long segment stenosis involving the popliteal artery. There is athe rosclerosis involving the proximal arterial trifurcation. There is evidence of multisegment severe st enosis throughout the left lower extremity arterial system. IMPRESSION: Extensive atherosclerotic disease involving the iliac arteries, as well as the arterial supply to bot h lower extremities. Given the overall heavy calcified plaque burden, conventional angiography may be beneficial. POS: [facility]
[2018-04-08] MEDS ORDERED: Iopamidol 370 76% 100 ML VIAL ONE (12:29)
== END 2018-04-08 07:37 | disposition home or self-care (01) ==
LOC: CT 07:36
PROVIDERS: ATTEND Thoracic Surgery (Cardiothoracic Vascular Surgery)
DX: I25.10 Atherosclerotic heart disease of native coronary artery without angina pectoris (principal); I70.8 Atherosclerosis of other arteries; I70.203 Unspecified atherosclerosis of native arteries of extremities, bilateral legs
CPT/HCPCS: 75635; 82565

== ENCOUNTER 2018-07-25 10:44 | Inpatient (IN) | payer MEDICARE, BC ==
[2018-07-25 12:37] LABS: ALT (SGPT) 7 U/L (8-55); AST (SGOT) 19 U/L (5-34); Albumin 4.1 g/dL (3.4-4.8); Alkaline Phosphatase 113 U/L (40-150); Anion Gap 19 mmol/L (10-20); BUN (Urea Nitrogen) 7 mg/dL (8.4-25.7); Bilirubin, Total 0.4 mg/dL (0.2-1.2); Calc. Creatinine Clearance 0 mL/min (70-130); Calcium 9.3 mg/dL (7.8-10.44); Carbon Dioxide 19 mmol/L (23-31); Chloride 105 mmol/L (98-107); Estimated GFR-MDRD Greater than 90; Globulin 3.7 g/dL (2.4-3.5); Glucose 126 mg/dL (80-115); Potassium 3.5 mmol/L (3.5-5.1); Protein, Total 7.8 g/dL (5.8-8.1); Sodium 139 mmol/L (136-145)
[2018-07-25 12:57] LABS: Elliptocytes SLIGHT = 2-5 cells (100X) (0-1/hpf); Hypochromia SLIGHT = 6-15 cells (100X) (0-5/hpf); Lymphocytes 13 % (21-51); MDiff Complete? YES; Mean Corpuscular HGB CONC 26.9 g/dL (32.0-36.0); Mean Corpuscular Hemoglobin 17.3 pg (27.0-31.0); Mean Corpuscular Volume 64.2 fL (78.0-98.0); Mean Platelet Volume 10.3 fL (7.4-10.4); Microcytosis MODERATE=15-30 cells (100X) (0-5/hpf); Monocytes 4 % (0-10); Neutrophil 81 % (42-75); Ovalocytes SLIGHT = 2-5 cells (100X) (0-1/hpf); Platelet Count 525 thou/uL (130-400); Polychromasia SLIGHT = 2-3 cells (100X) (0-2/hpf); RBC Distribution Width 17.3 % (11.5-14.5); Reactive Lymphocytes 1 % (0-10); Red Blood Cell (RBC) Count 4.05 mill/uL (4.70-6.10); Reflex for Review?? NO; White Blood Cell (WBC) Count 8.6 thou/uL (4.8-10.8)
[2018-07-25 13:53] LABS: Bilirubin Negative (Negative); Blood, Urine Negative (Negative); Clarity CLEAR (Clear); Glucose, Urine (Dipstick) Negative (Negative); Leukocyte Negative (Negative); Nitrite Negative (Negative); Protein, Urine (Dipstick) 30 mg/dL (Neg-Trace)
[2018-07-25 14:02] LABS: Bacteria/HPF None Seen HPF (None Seen); Hyaline Casts/LPF 0-3 HYALINE CAST LPF (0-3 Hyaline); RBC/HPF 0-3 HPF (0-3); Squamous Epithelial None Seen HPF (0-3); WBC/HPF None Seen HPF (0-3)
[2018-07-25 14:35] LABS: Reticulocyte Count 1.7 % (0.5-1.5)
--- NOTE | 2018-07-25 16:05 | HP ---
PRIMARY CARE PHYSICIAN: [facility]. REASON FOR ADMISSION: Sent by PCP for symptomatic anemia. HISTORY OF PRESENT ILLNESS: This is a 68-year-old male, who has history of coronary artery disease, required CABG in September 2017. The patient is taking aspirin and Plavix at home. He denies any black tarry stool. He denies any blood in stool. He denies any constipation. For the last couple of weeks, the patient was experiencing fatigue and dyspnea on exertion. He did not have any chest pain. He did not have any syncope. He went to see his primary care physician on Wednesday. At that time, a routine blood test was done. The patient's primary care physician tried to reach him over weekend, but he was not able to be contacted until this morning, primary care physician again called him to go to ER for evaluation for significant low hemoglobin. Today, in the emergency room the patient's hemoglobin is 7, and he has microcytosis. The patient denies any recent EGD or colonoscopy. He denies any family history of colon cancer. He denies any weight loss. He denies any change in bowel or bladder habit. The patient denies taking any NSAID. He denies taking iron. REVIEW OF SYSTEMS: CONSTITUTIONAL: Negative for weight loss or gain, ability to conduct usual activities. SKIN: Negative for rash, itching. EYES: Negative for double vision, pain. ENT/MOUTH: Negative for nose bleeding, neck stiffness, pain, tenderness. CARDIOVASCULAR: Negative for palpitations, dyspnea on exertion, orthopnea. RESPIRATORY: Negative for shortness of breath, wheezing, cough, hemoptysis, fever or night sweats. GASTROINTESTINAL: Negative for poor appetite, abdominal pain, heartburn, nausea, vomiting, constipation, or diarrhea. GENITOURINARY: Negative for urgency, frequency, dysuria, nocturia. MUSCULOSKELETAL: Negative for pain, swelling. NEUROLOGIC/PSYCHIATRIC: Negative for anxiety, depression. ALLERGY/IMMUNOLOGIC: Negative for skin rash, bleeding tendency. Please see my HPI for pertinent positive and negative. All other review of systems reviewed and negative except as mentioned in the HPI. PAST MEDICAL HISTORY: Coronary artery disease with history of CABG, hypertension, dyslipidemia, morbid obesity, gout, osteoarthritis, and benign enlargement of prostate. PAST SURGICAL HISTORY: Right hip replacement, CABG x4, and left wrist surgery. PAST PSYCHIATRIC HISTORY: Reviewed and negative. SOCIAL HISTORY: The patient is living at home. No history of tobacco, alcohol, or illicit drug abuse. FAMILY HISTORY: No family history of coronary artery disease, stroke, or cancer. ALLERGIES: NO KNOWN DRUG ALLERGIES. CURRENT HOME MEDICATIONS: 1. Aspirin 81 mg daily. 2. Plavix 75 mg daily. 3. Lisinopril 20 mg daily. 4. Toprol-XL 50 mg daily. 5. Procardia XL 60 mg daily. 6. Omeprazole 40 mg daily. 7. Flomax 0.4 mg daily. 8. Allopurinol 100 mg daily. 9. Hydralazine 10 mg three times daily. EMERGENCY ROOM COURSE: Reviewed. PHYSICAL EXAMINATION: VITAL SIGNS: Currently, blood pressure 119/80, pulse 90, respiratory rate 19, temperature 98.6, and saturation 100% on room air. Weight 99.8 kg. GENERAL: The patient is currently alert and awake, no obvious acute distress. HEENT: Head; normocephalic, atraumatic. Eyes; pupils round, reactive to light. Conjunctivae pale. Oropharynx within normal limits. Pale mucous membrane. No pharyngeal erythema. No exudate. NECK: Supple. No JVD. No thyromegaly. No carotid bruit. LUNGS: Clear to auscultation without any rhonchi or rales. CARDIAC: S1 and S2 regular without any significant murmur. ABDOMEN: Soft. Obesity present. Bowel sounds present. Nontender. Nondistended. No organomegaly. No mass. No suprapubic tenderness. BACK: Unremarkable. No CVA tenderness. EXTREMITIES: Upper extremities, passive movement of all joints are normal. Lower extremity, no edema. Good distal pulsation. SKIN: No skin rash. HEMATOLOGIC: No lymphadenopathy. PSYCHIATRIC: Normal affect. SIGNIFICANT LABORATORY DATA: EKG showing sinus tachycardia, premature ventricular complexes, right bundle-branch block, and LVH. CBC; WBC 8.6, hemoglobin 7.0, MCV 64.2, and platelets 525. BMP; sodium 139, potassium 3.5, chloride 105, carbon dioxide 19, BUN 7, creatinine 0.83, glucose 126, and calcium 9.3. LFT; AST 19, ALT 7, alkaline phosphatase 113, and albumin 4.1. ASSESSMENT AND PLAN: 1. Symptomatic microcytic anemia. At this point, the patient has microcytosis. He has reactive thrombocytosis. He has aspirin and Plavix for coronary artery disease. We will check stool for guaiac. We will check ferritin, TIBC, transferrin saturation for further evaluation. To rule out other etiology, we will check TSH. The patient has problem with antibody in his blood and that is why we will also check LDH to rule out hemolysis. His bilirubin is normal, so the chances of having hemolytic anemia is less likely. Most likely, this patient has chronic oozing. He will need a colonoscopy and upper endoscopy as a part of workup. If both are unremarkable, then he will need outpatient capsule endoscopy. We will transfuse blood, and if needed, we will also give him parenteral iron infusion. Further workup will be done on an outpatient basis. We will consult Gastroenterology for procedure. 2. Coronary artery disease with history of coronary artery bypass grafting. At this point, given his symptomatic anemia, we are holding aspirin and Plavix, but rest of medications including lisinopril, Toprol-XL, Procardia XL, and hydralazine will be continued if his blood pressure permits. 3. Gastroesophageal reflux disease. We will continue Protonix 40 mg p.o. daily. 4. Morbid obesity. Dietary education given. Weight loss education given. 5. Benign enlargement of prostate. We will continue Flomax 0.4 mg daily. 6. Gout. We will continue allopurinol 100 mg daily. 7. Deep venous thrombosis prophylaxis, SCD boots. 8. Gastrointestinal prophylaxis, Protonix 40 mg p.o. daily. CODE STATUS: The patient is full code. The patient does not have any surrogate decision maker. DISPOSITION PLAN: Based on clinical course, we are expecting the patient's stay in hospital 24 to 48 hours. Plan of care discussed with the patient in detail. Job ID: [id number]
[2018-07-25] MEDS ORDERED: Sodium Chloride 0.65% Nasal 44 ML BOT EA NARE PRN (17:25)
[2018-07-25] MEDS ORDERED: Cepastat Lozenges 1 LOZ PO PRN (17:25)
[2018-07-25] MEDS ORDERED: Ondansetron ODT 4 MG TAB PO PRN (17:25)
[2018-07-25] MEDS ORDERED: HYDROcodone/Acetaminophen 5/325 mg Tablet PO PRN (17:25)
[2018-07-25] MEDS ORDERED: Diabetic Tussin 200 MG/10 ML UDCUP PO PRN (17:25)
[2018-07-25] MEDS ORDERED: Loperamide HCl 2 MG CAP PO PRN (17:25)
[2018-07-25] MEDS ORDERED: Acetaminophen 325 MG TAB PO PRN (17:25)
[2018-07-25] MEDS ORDERED: Artificial Tears 18 DROP/0.9 ML EA EYE PRN (17:25)
[2018-07-25] MEDS ORDERED: Nitroglycerin 0.4 MG TAB (25 Tab Bottle) SL PRN (17:25)
[2018-07-25] MEDS ORDERED: Ondansetron PF 4 MG/2 ML Vial IVP PRN (17:25)
[2018-07-25] MEDS ORDERED: Loratadine 10 MG TAB PO PRN (17:25)
[2018-07-25] MEDS ORDERED: Zolpidem Tartrate 5 MG TAB PO PRN (17:25)
[2018-07-25] MEDS ORDERED: Bisacodyl 5 MG TAB PO PRN (17:25)
[2018-07-25] MEDS ORDERED: Eucerin (Mineral Oil/Petrolatum,White) 30 gm Jar TOP PRN (17:25)
[2018-07-25] MEDS ORDERED: Calcium Carbonate 500 MG ChewTAB PO PRN (17:25)
[2018-07-25] MEDS ORDERED: Bisacodyl 10 MG SUPP PR PRN (17:25)
[2018-07-25] MEDS ORDERED: hydrALAZINE 20 MG/ML VIAL SLOW IVP PRN (17:25)
[2018-07-25] MEDS ORDERED: Senokot S 8.6-50 MG TAB PO PRN (17:25)
[2018-07-25 17:28] VITALS: BMI 32.2
[2018-07-25 17:46] LABS: Iron 13 ug/dL (65-175); Iron Binding Capacity, Total 345 mcg/dL (261-462)
[2018-07-25 18:05] LABS: Ferritin 7.32 ng/mL (22-322); Thyroid Stimulating Hormone 0.2109 uIU/mL (0.35-4.94)
[2018-07-26 05:21] LABS: Anion Gap 12 mmol/L (10-20); BUN (Urea Nitrogen) 6 mg/dL (8.4-25.7); Calc. Creatinine Clearance 132 mL/min (70-130); Calcium 9.3 mg/dL (7.8-10.44); Carbon Dioxide 26 mmol/L (23-31); Chloride 104 mmol/L (98-107); Estimated GFR-MDRD Greater than 90; Glucose 102 mg/dL (80-115); Potassium 3.5 mmol/L (3.5-5.1); Sodium 138 mmol/L (136-145)
[2018-07-26 05:31] LABS: #Eosinphils 0.2 thou/uL (0.0-0.7); #Lymphocytes 1.1 thou/uL (1.20-3.40); #Monocytes 0.8 thou/uL (0.11-0.59); #Neutrophils 7.4 thou/uL (1.40-6.50); %Basophils 0.4 % (0.0-1.0); %Eosinophils 2.2 % (0.0-10.0); %Lymphocytes 11.4 % (21.0-51.0); %Monocytes 8.4 % (0.0-10.0); %Neutrophils 77.7 % (42.0-75.0); Elliptocytes SLIGHT = 2-5 cells (100X) (0-1/hpf); Hemoglobin 8.5 g/dL (14.0-18.0); Hypochromia SLIGHT = 6-15 cells (100X) (0-5/hpf); MDiff Complete? YES; Mean Corpuscular HGB CONC 29.1 g/dL (32.0-36.0); Mean Corpuscular Hemoglobin 19.9 pg (27.0-31.0); Mean Corpuscular Volume 68.4 fL (78.0-98.0); Mean Platelet Volume 10.2 fL (7.4-10.4); Microcytosis SLIGHT = 6-15 cells (100X) (0-5/hpf); Platelet Count 454 thou/uL (130-400); Platelet Morphology Comment Appears Increased; RBC Distribution Width 23.3 % (11.5-14.5); Red Blood Cell (RBC) Count 4.29 mill/uL (4.70-6.10); Tear Drops SLIGHT = 2-5 cells (100X) (0-1/hpf); White Blood Cell (WBC) Count 9.6 thou/uL (4.8-10.8)
[2018-07-26] MEDS ORDERED: Iron Sucrose Complex 200 MG in Sodium Chloride 0.9% 250 ML 250 ML IVPB SCH (07:45)
[2018-07-26] MEDS ORDERED: Iron, Sodium Ferric Gluconate 250 MG in Sodium Chloride 0.9% 250 ML 250 ML IVPB SCH (08:00)
[2018-07-26 08:11] LABS: Free T4 (Free Thyroxine) 1.12 ng/dL (0.70-1.48)
[2018-07-26] MEDS: Allopurinol 100 MG TAB PO SCH ×2 (09:13→09:26)
[2018-07-26] MEDS: Lisinopril 20 MG TAB PO SCH ×2 (09:13→09:26)
[2018-07-26] MEDS: NIFEdipine XL 60 MG TAB PO SCH ×2 (09:14→09:27)
[2018-07-26] MEDS: hydrALAZINE 10 MG TAB PO SCH ×4 (09:14→20:21)
[2018-07-26] MEDS: Tamsulosin HCl 0.4 MG CAP PO SCH ×2 (09:15→09:27)
--- NOTE | 2018-07-26 10:18 | PDOC.PN ---
- Subjective Encounter Start Date: 07/26/18 Encounter Start Time: 07:00 Patient seen and examined. No new complaints. No overnight events - Objective Resuscitation Status - Order Detail: 07/25/18 15:27 Resuscitation Status Routine Resuscitation Status: FULL: Full Resuscitation MAR Reviewed: Yes Vital Signs & Weight: Vital Signs (12 hours) Temp Pulse Pulse Resp BP BP BP 07/26/18 09:27 79 174/75 H 07/26/18 09:26 174/75 H 07/26/18 09:23 79 174/75 H 07/26/18 07:40 97.9 F 86 16 174/75 H 07/26/18 05:06 98.3 F 81 18 165/76 H 07/26/18 01:30 98.2 F 79 18 158/75 H Pulse Ox 07/26/18 09:27 07/26/18 09:26 07/26/18 09:23 07/26/18 07:40 100 07/26/18 05:06 97 07/26/18 01:30 96 Weight Weight 211 lb 12.8 oz I&O: 07/25/18 07/26/18 07/27/18 06:59 06:59 06:59 Intake Total 700 Balance 700 Result Diagrams: 07/26/18 04:25 07/26/18 04:25 Phys Exam - Physical Examination Constitutional: NAD HEENT: PERRLA, moist MMs, sclera anicteric Neck: no JVD, supple Respiratory: no wheezing, no rales, no rhonchi Cardiovascular: RRR, no significant murmur, no rub Gastrointestinal: soft, non-tender, no distention, positive bowel sounds Musculoskeletal: no edema, pulses present Neurological: non-focal, normal sensation Lymphatic: no nodes Psychiatric: normal affect, A&O x 3 Skin: no rash, normal turgor Dx/Plan (1) Iron deficiency anemia Code(s): D50.9 - IRON DEFICIENCY ANEMIA, UNSPECIFIED Status: Acute (2) Symptomatic anemia Code(s): D64.9 - ANEMIA, UNSPECIFIED Status: Acute (3) BPH (benign prostatic hyperplasia) Code(s): N40.0 - BENIGN PROSTATIC HYPERPLASIA WITHOUT LOWER URINRY TRACT SYMP Status: Chronic (4) CAD (coronary artery disease) Code(s): I25.10 - ATHSCL HEART DISEASE OF [place] CORONARY ARTERY W/O ANG PCTRS Status: Chronic (5) Dyslipidemia Code(s): E78.5 - HYPERLIPIDEMIA, UNSPECIFIED Status: Chronic (6) Gout Code(s): M10.9 - GOUT, UNSPECIFIED Status: Chronic (7) Hypertension Code(s): I10 - ESSENTIAL (PRIMARY) HYPERTENSION Status: Chronic (8) Obesity (BMI 30.0-34.9) Code(s): E66.9 - OBESITY, UNSPECIFIED Status: Chronic (9) PVD (peripheral vascular disease) Code(s): I73.9 - PERIPHERAL VASCULAR DISEASE, UNSPECIFIED Status: Chronic - Plan cont current plan of care * will give venofer today * GI to decide for procedure * will resume aspirin and plavix after procedure * medication reviewed as below * symptomatic treatment. * discharge pending GI decision Review of Systems - Review of Systems ENT: negative: Ear Pain, Ear Discharge, Nose Pain, Nose Discharge, Nose Congestion, Mouth Pain, Mouth Swelling, Throat Pain, Throat Swelling, Other Respiratory: negative: Cough, Dry, Shortness of Breath, Hemoptysis, SOB with Excertion, Pleuritic Pain, Sputum, Wheezing Cardiovascular: negative: chest pain, palpitations, orthopnea, paroxysmal nocturnal dyspnea, edema, light headedness, other Gastrointestinal: negative: Nausea, Vomiting, Abdominal Pain, Diarrhea, Constipation, Melena, Hematochezia, Other Genitourinary: negative: Dysuria, Frequency, Incontinence, Hematuria, Retention , Other Musculoskeletal: negative: Neck Pain, Shoulder Pain, Arm Pain, Back Pain, Hand Pain, Leg Pain, Foot Pain, Other - Medications/Allergies Allergies/Adverse Reactions: Allergies Allergy/AdvReac Type Severity Reaction Status Date / Time No Known Allergies Allergy Verified 10/04/17 10:33 Medications: Current Medications Acetaminophen (Tylenol) 650 mg PO Q4H PRN PRN Reason: Headache/Fever/Mild Pain (1-3) Last Admin: 07/26/18 09:15 Dose: 650 mg Hydrocodone Bitart/Acetaminophen ([place] 5/325) 1 tab PO Q4H PRN PRN Reason: Moderate Pain (4-6) Allopurinol (Zyloprim) 100 mg PO DAILY ALBARO Last Admin: 07/26/18 09:26 Dose: Not Given Artificial Tears (Tears Naturale) 2 drop EA EYE PRN PRN PRN Reason: Dry Eyes Bisacodyl (Dulcolax) 10 mg PO DAILYPRN PRN PRN Reason: Constipation Bisacodyl (Dulcolax) 10 mg MO DAILYPRN PRN PRN Reason: Constipation Calcium Carbonate (Tums) 1,000 mg PO Q4H PRN PRN Reason: Heartburn or Indigestion Guaifenesin (Robitussin Sf) 200 mg PO Q4H PRN PRN Reason: Cough Hydralazine HCl (Apresoline) 10 mg SLOW IVP Q4H PRN PRN Reason: SBP > 180 and HR < 70 Hydralazine HCl (Apresoline) 10 mg PO TID [facility] Last Admin: 07/26/18 09:23 Dose: Not Given Lisinopril (Zestril) 20 mg PO DAILY [facility] Last Admin: 07/26/18 09:26 Dose: Not Given Loperamide HCl (Imodium) 2 mg PO PRN PRN PRN Reason: Diarrhea/Loose Stools Loratadine (Claritin) 10 mg PO DAILYPRN PRN PRN Reason: Sinus Symptoms Metoprolol Succinate (Toprol Xl) 50 mg PO DAILY [facility] Last Admin: 07/26/18 09:27 Dose: Not Given Mineral Oil/White Petrolatum (Eucerin Cream) 0 gm TOP BIDPRN PRN PRN Reason: Dry Skin Nifedipine (Procardia Xl) 60 mg PO DAILY [facility] Last Admin: 07/26/18 09:27 Dose: Not Given Nitroglycerin (Nitrostat) 0.4 mg SL Q5MIN PRN PRN Reason: Chest Pain Ondansetron HCl (Zofran Odt) 4 mg PO Q6H PRN PRN Reason: Nausea/Vomiting Ondansetron HCl (Zofran) 4 mg IVP Q6H PRN PRN Reason: Nausea/Vomiting Senna/Docusate Sodium (Senokot S) 2 tab PO BID PRN PRN Reason: Constipation Sodium Chloride ([place] Nasal [place] 0.65%) 0 ml EA NARE QIDPRN PRN PRN Reason: Nasal Congestion Tamsulosin HCl (Flomax) 0.4 mg PO DAILY [facility] Last Admin: 07/26/18 09:27 Dose: Not Given Throat Lozenges (Cepastat Lozenges) 1 mere PO Q2H PRN PRN Reason: Sore Throat Zolpidem Tartrate (Ambien) 5 mg PO HSPRN PRN PRN Reason: Insomnia
[2018-07-26] MEDS ORDERED: GoLYTELY 4,000 ml Bottle PO SCH (18:00)
--- NOTE | 2018-07-26 18:54 | CON ---
DATE OF CONSULTATION: 07/26/2018 REASON FOR CONSULTATION: Severe symptomatic anemia. HISTORY OF PRESENT ILLNESS: Sofiya Rinaldi is a 68-year-old gentleman with a history significant for coronary artery disease with coronary artery bypass graft in September 2017. He also has peripheral vascular disease and is on aspirin and Plavix. He met my partner, Dr. Rakesh Garcia about 10 years ago back in December 2008 for GI bleeding complaint. He had a colonoscopy at that time, which showed some nonspecific rectosigmoid ulcerations as well as a small sigmoid tubular adenoma, which was completely removed. From ECS, IBD serology was negative at that time. The patient did well with just 2 months of Asacol treatment and had no recurrence of any GI symptoms. He has no chronic gastrointestinal symptoms. He presented to the hospital with a couple of weeks of progressive fatigue and dyspnea on exertion. He was found to have severe anemia with hemoglobin 7.0. This is microcytic with an MCV of 64.2, and iron indices are all low. He has had 2 units of RBC transfusion and hemoglobin came up to 8.5. He has gotten an iron infusion today. Through all of this, the patient relates he does not have any issues with abdominal pain, nausea, or vomiting. He has no complaint of diarrhea or constipation. No melena or hematochezia. No other overt bleeding that he is aware of. He does not have nosebleeds or gross hematuria. REVIEW OF SYSTEMS: Full review of systems including constitutional, head, eyes, ears, nose, throat, GI, , cardiovascular, respiratory, musculoskeletal, and neurologic systems are negative except as noted in the HPI. PAST MEDICAL HISTORY: Hypertension, hyperlipidemia, morbid obesity, gout, BPH, right hip replacement, peripheral vascular disease, and coronary artery disease status post CABG in September 2017, on aspirin and Plavix. Sigmoid tubular adenoma removed in December 2008 and nonspecific rectosigmoid colitis, in December 2008. FAMILY HISTORY: Negative for colon cancer. SOCIAL HISTORY: He has a prior history of tobacco abuse, prior history of alcohol use, none recently. ALLERGIES: NO KNOWN DRUG ALLERGIES. OUTPATIENT MEDICATIONS: 1. Aspirin 81 mg daily. 2. Plavix 75 mg daily. 3. Lisinopril. 4. Toprol-XL. 5. Procardia XL. 6. Omeprazole 40 mg daily. 7. Flomax 0.4 mg daily. 8. Allopurinol. 9. Hydralazine. PHYSICAL EXAMINATION: VITAL SIGNS: Temperature 97.7, pulse 84, blood pressure 124/60, and 94% oxygen saturation on room air. GENERAL: A 68-year-old obese gentleman, lying in bed comfortably, in no distress. MENTAL: He is alert and oriented. He is able to answer some questions appropriately, but he is quite tangential. SKIN: No jaundice. No rashes were palpable. EYES: No scleral icterus. Extraocular movements intact. ENT: Mucous membranes moist. No oral lesions. LYMPH: No submandibular or supraclavicular lymphadenopathy. THYROID: Nontender to palpation. HEART: Regular rate and rhythm. LUNGS: Clear to auscultation bilaterally. ABDOMEN: Bowel sounds present. Soft and nontender to palpation. No masses or organomegaly appreciated. EXTREMITIES: No peripheral edema. VESSELS: Radial pulses 2+ bilaterally. NEUROLOGIC: Cranial nerves 2 through 12 intact bilaterally. LABORATORY STUDIES: Initial hemoglobin was 7.0 and MCV 64.2. After 2 units RBC transfusion, hemoglobin is up to 8.5, WBC 8.6, and platelets 454. LFTs all normal. BUN only 6 and creatinine 0.74. TSH 0.21. Ferritin only 7.32, iron 13, TIBC 345, and 4% iron saturation. FOBT is negative. Urinalysis is negative. ASSESSMENT AND PLAN: 1. Iron-deficiency anemia, severe, symptomatic. 2. History of colon polyp, sigmoid adenoma removed in 2008. 3. History of nonspecific rectosigmoid colitis in 2008. 4. Coronary artery disease, on aspirin and Plavix. I had a long discussion with the patient regarding his iron deficiency anemia. This seems most consistent with slow blood loss. Note, the negative urinalysis and no report of any overt bleeding. Most likely explanation would be occult gastrointestinal blood loss. I recommend we proceed with esophagogastroduodenoscopy and colonoscopy for further investigation. We will plan to perform the procedure tomorrow. The patient is in agreement. Further recommendations following endoscopy. Thank you for the consultation. Please call at anytime with questions or concerns. Job ID: [id number]
[2018-07-27] MEDS: Lisinopril 20 MG TAB PO SCH (09:30)
[2018-07-27] MEDS: Allopurinol 100 MG TAB PO SCH (09:30)
[2018-07-27] MEDS: NIFEdipine XL 60 MG TAB PO SCH (09:31)
[2018-07-27] MEDS: Tamsulosin HCl 0.4 MG CAP PO SCH (09:31)
[2018-07-27] MEDS: hydrALAZINE 10 MG TAB PO SCH ×3 (09:31→21:24)
--- NOTE | 2018-07-27 12:11 | OP ---
DATE OF PROCEDURE: 07/27/2018 PROCEDURES PERFORMED: 1. Esophagogastroduodenoscopy. 2. Colonoscopy with snare polypectomy. PREPROCEDURE DIAGNOSIS: Iron-deficiency anemia. POSTPROCEDURE DIAGNOSES: 1. Normal upper endoscopy. 2. Two small colon polyps, otherwise normal colon exam. 3. No obvious source of GI blood loss on this exam. DESCRIPTION OF PROCEDURE: Written consents were obtained prior to procedure. After adequate sedation, forward viewing endoscope was advanced down the stomach under direct vision to the third portion of duodenum. The duodenum including the bulb appeared normal. The gastric antrum, body, fundus, and cardia all appeared normal. Retroflexion did not show any abnormality. The GE junction was normal. The esophagus was normal. The patient was then repositioned for colon exam. Rectal exam performed was normal. The endoscope was advanced to the cecum. The quality of the bowel prep was good. The ileocecal valve was identified and appeared normal. The appendiceal orifice was visualized. The cecum appeared normal. A small 3 mm polyp was noted in the ascending colon and was removed with a cold snare and retrieved. The hepatic flexure, transverse colon, splenic flexure, and descending colon appeared normal. In the sigmoid colon, a 4 mm sessile polyp was noted and was removed with cold snare. The rectosigmoid including retroflexion in the rectum was normal. The patient tolerated the procedure well. ASSESSMENT: 1. Normal upper endoscopy. 2. Two small colon polyps removed, otherwise normal colon exam. 3. No source of blood loss identified on these exams. RECOMMENDATION: 1. The patient can be discharged home on iron supplement. 2. If anemia does not respond to iron supplement, we will consider small bowel video capsule endoscopy. 3. The patient can be discharged to home from GI standpoint. Job ID: [id number]
[2018-07-27] MEDS ORDERED: Lidocaine 1% PF 5 ML VIAL ONE (15:06)
[2018-07-27] MEDS ORDERED: PROPOFOL 200 MG/20 ML VIAL ONE (15:06)
--- NOTE | 2018-07-27 15:57 | PDOC.PN ---
- Subjective Encounter Start Date: 07/27/18 Encounter Start Time: 15:55 Subjective: no pain - Objective Resuscitation Status - Order Detail: 07/25/18 15:27 Resuscitation Status Routine Resuscitation Status: FULL: Full Resuscitation MAR Reviewed: Yes Vital Signs & Weight: Vital Signs (12 hours) Temp Pulse Pulse Resp BP BP Pulse Ox 07/27/18 15:40 98.4 F 86 12 137/61 99 07/27/18 14:12 90 142/65 H 07/27/18 12:00 97.5 F L 76 17 162/73 H 100 07/27/18 08:00 98.4 F 84 16 175/71 H 96 Weight Weight 211 lb 12.8 oz I&O: 07/26/18 07/27/18 07/28/18 06:59 06:59 06:59 Intake Total 700 Balance 700 Result Diagrams: 07/26/18 04:25 07/26/18 04:25 Phys Exam - Physical Examination Neck: no JVD Respiratory: clear to auscultation bilateral Cardiovascular: RRR, no significant murmur Gastrointestinal: soft, positive bowel sounds Musculoskeletal: no edema Dx/Plan (1) Iron deficiency anemia Code(s): D50.9 - IRON DEFICIENCY ANEMIA, UNSPECIFIED Status: Acute Qualifiers: Iron deficiency anemia type: unspecified iron deficiency Qualified Code(s) : D50.9 - Iron deficiency anemia, unspecified (2) Symptomatic anemia Code(s): D64.9 - ANEMIA, UNSPECIFIED Status: Acute (3) BPH (benign prostatic hyperplasia) Code(s): N40.0 - BENIGN PROSTATIC HYPERPLASIA WITHOUT LOWER URINRY TRACT SYMP Status: Chronic Qualifiers: Lower urinary tract symptom detail: unspecified (4) CAD (coronary artery disease) Code(s): I25.10 - ATHSCL HEART DISEASE OF [place] CORONARY ARTERY W/O ANG PCTRS Status: Chronic Qualifiers: Coronary Disease-Associated Artery/Lesion type: [place] artery [place] vs. transplanted heart: [place] heart Associated angina: without angina Qualified Code(s): I25.10 - Atherosclerotic heart disease of [place] coronary artery without angina pectoris (5) Hypertension Code(s): I10 - ESSENTIAL (PRIMARY) HYPERTENSION Status: Chronic Qualifiers: Hypertension type: essential hypertension Qualified Code(s): I10 - Essential (primary) hypertension - Plan endoscopy unrevealing -: iv iron loading -: DC in am * .
[2018-07-27] MEDS: Iron, Sodium Ferric Gluconate 250 MG in Sodium Chloride 0.9% 100 ML IVPB SCH (18:34)
[2018-07-28] MEDS: Iron, Sodium Ferric Gluconate 250 MG in Sodium Chloride 0.9% 100 ML IVPB SCH (05:41)
[2018-07-28] MEDS ORDERED: Iron Polysaccharides Complex 150 MG CAP PO SCH (08:00)
[2018-07-28] MEDS: Lisinopril 20 MG TAB PO SCH (08:23)
[2018-07-28] MEDS: hydrALAZINE 10 MG TAB PO SCH (08:23)
[2018-07-28] MEDS: Tamsulosin HCl 0.4 MG CAP PO SCH (08:24)
[2018-07-28] MEDS: Allopurinol 100 MG TAB PO SCH (08:24)
[2018-07-28] MEDS: NIFEdipine XL 60 MG TAB PO SCH (08:24)
[2018-07-28 09:08] LABS: Hemoglobin 9.1 g/dL (14.0-18.0); Platelet Count 446 thou/uL (130-400)
--- NOTE | 2018-07-28 09:26 | DIS ---
DATE OF ADMISSION: 07/27/2018 DATE OF DISCHARGE: 07/28/2018 DISPOSITION: Discharged home. PRIMARY CARE PROVIDER: Ananth Meade. DIAGNOSES: Symptomatic anemia, severe iron deficiency anemia, coronary artery disease, hypertension, dyslipidemia, colon polyps. DISCHARGE MEDICATIONS: 1. Plavix 75 mg a day. 2. Flomax 0.4 mg a day. 3. Nifedipine 60 mg a day. 4. Aspirin 81 mg a day. 5. Allopurinol 100 mg a day. 6. Metoprolol-XL 50 mg a day. 7. Zestril 20 mg a day. 8. Apresoline 10 mg three times a day. 9. Omeprazole 1 tablet a day 20 mg. ALLERGIES: NO KNOWN DRUG ALLERGIES. DIET: Heart healthy. PENDING AT THE TIME OF DISCHARGE: Nothing. PATHOLOGY: Polyps resected at colonoscopy. CODE STATUS: Full. HOSPITAL COURSE: [facility] He presented with symptomatic anemia, sent by his primary care doctor. His laboratory of note, hemoglobin of 7, microcytic microchromic indices. Iron was 13, iron binding capacity 345 for a percent sat of 4. Ferritin was low at 7. Chemistries were unremarkable. Free T4 and T3 were normal despite a mildly low TSH. The patient received 2 units of packed cells. Hemoglobin came back 8.5. Dr. Lam Delgado was consulted. On 07/27/2018, the patient had normal upper endoscopy and two small polyps on colonoscopy, which were both snared and sent for pathology. There was no obvious bleeding site. The patient was loaded with IV iron. He is now stable for discharge, being discharged on his routine medicines except for the Plavix, which is removed from the list, which is being held due to the bleeding. He has been instructed to return to his primary care provider for followup in 1 week. He will need a CBC at that time. Job ID: [id number]
[2018-07-28 11:18] VITALS: BP 112/62; TEMP 98.3
== END 2018-07-28 14:15 | disposition home or self-care (01) | DRG 812 ==
LOC: ERS 10:44 → 2SW 14:04 → OBSVTOIN 07-27 08:22 → T4-A 07-27 18:07
PROVIDERS: ADMIT Internal Medicine; ATTEND Internal Medicine
PROC: 0DBK8ZZ Excision of Ascending Colon, Via Natural or Artificial Opening Endoscopic (ICD-10-PCS; principal; 2018-07-27)
PROC: 0DBN8ZZ Excision of Sigmoid Colon, Via Natural or Artificial Opening Endoscopic (ICD-10-PCS; 2018-07-27)
PROC: 0DJ08ZZ Inspection of Upper Intestinal Tract, Via Natural or Artificial Opening Endoscopic (ICD-10-PCS; 2018-07-27)
DX: D50.9 Iron deficiency anemia, unspecified (principal); I25.10 Atherosclerotic heart disease of native coronary artery without angina pectoris; I10 Essential (primary) hypertension; E78.5 Hyperlipidemia, unspecified; M19.90 Unspecified osteoarthritis, unspecified site; N40.0 Benign prostatic hyperplasia without lower urinary tract symptoms; M10.9 Gout, unspecified; K21.9 Gastro-esophageal reflux disease without esophagitis; I73.9 Peripheral vascular disease, unspecified; K63.5 Polyp of colon; E66.9 Obesity, unspecified; Z96.643 Presence of artificial hip joint, bilateral; Z98.890 Other specified postprocedural states; Z79.82 Long term (current) use of aspirin; Z79.899 Other long term (current) drug therapy; Z95.1 Presence of aortocoronary bypass graft; Z79.02 Long term (current) use of antithrombotics/antiplatelets; Z68.32 Body mass index [BMI] 32.0-32.9, adult
CPT/HCPCS: 36415; 36430; 80048; 80053; 81003; 81015; 82274; 82728; 83540; 83550; 83615; 84439; 84443; 84481; 85014; 85018; 85025; 85046; 85049; 86850; 86900; 86901; 86922; 88305; 93005; J0360; J1756; J2001; J2704; J2916; J7050; P9016

== ENCOUNTER 2019-03-24 08:24 | Outpatient (CLI) | payer MEDICARE, BC ==
--- NOTE | 2019-03-24 08:58 | RAD ---
Lumbar spine 2 views HISTORY: Low back pain. FINDINGS: There are 5 lumbar type vertebrae. Motion artifact limits detail. Pedicles are intact. Vert ebral body heights are maintained. Minimal degenerative retrolisthesis at the L1-2 level. Disc space narrowing at the L1-2 and L2-3 levels. Prominent osteophytosis throughout the vertebral bodies and facets. Minimal rightward convex curvature. Prominent calcification over the arterial structures. Mild fusiform ectasia of the lower abdominal aorta. IMPRESSION: Osseous degenerative changes. No acute osseous abnormalities are demonstrated. Atherosclerosis.
--- NOTE | 2019-03-24 08:59 | RAD ---
Right shoulder 3 views HISTORY: Right shoulder pain. FINDINGS: Prominent joint space narrowing and moderate osteophytosis of the glenohumeral joint. Mild osteophytosis of the acromioclavicular joint. Alignment is maintained. No acute fracture, dislocation, or aggressive osseous erosions. 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
== END 2019-03-24 08:25 | disposition home or self-care (01) ==
LOC: BICRAD 08:24
PROVIDERS: ATTEND Physician Assistant Medical
DX: M47.26 Other spondylosis with radiculopathy, lumbar region (principal); M25.511 Pain in right shoulder; M19.011 Primary osteoarthritis, right shoulder; I70.90 Unspecified atherosclerosis
CPT/HCPCS: 72100

== ENCOUNTER 2019-08-05 06:44 | Inpatient (IN) | payer MEDICARE, BC ==
[2019-08-05] MEDS ORDERED: Ketorolac Tromethamine 30 MG/ML VIAL ONE (07:36)
[2019-08-05] MEDS ORDERED: Ondansetron PF 4 MG/2 ML Vial ONE (07:37)
[2019-08-05 07:48] LABS: #Lymphocytes 0.6 thou/uL (1.20-3.40); #Monocytes 1.2 thou/uL (0.11-0.59); #Neutrophils 14.8 thou/uL (1.40-6.50); %Eosinophils 0.1 % (0.0-10.0); %Lymphocytes 3.5 % (21.0-51.0); %Monocytes 7.2 % (0.0-10.0); %Neutrophils 89.3 % (42.0-75.0); Hemoglobin 14.2 g/dL (14.0-18.0); Mean Corpuscular HGB CONC 33.6 g/dL (32.0-36.0); Mean Corpuscular Hemoglobin 29.3 pg (27.0-31.0); Mean Corpuscular Volume 87.2 fL (78.0-98.0); Mean Platelet Volume 7.4 fL (7.4-10.4); Platelet Count 276 thou/uL (130-400); RBC Distribution Width 12.7 % (11.5-14.5); Red Blood Cell (RBC) Count 4.86 mill/uL (4.70-6.10); White Blood Cell (WBC) Count 16.6 thou/uL (4.8-10.8)
[2019-08-05 08:07] LABS: ALT (SGPT) 20 U/L (8-55); AST (SGOT) 17 U/L (5-34); Alkaline Phosphatase 110 U/L (40-110); Anion Gap 16 mmol/L (10-20); BUN (Urea Nitrogen) 10 mg/dL (8.4-25.7); Bilirubin, Total 0.7 mg/dL (0.2-1.2); CK (CPK) 166 U/L (30-200); Calc. Creatinine Clearance 0 mL/min (70-130); Calcium 9.2 mg/dL (7.8-10.44); Carbon Dioxide 25 mmol/L (23-31); Chloride 99 mmol/L (98-107); Estimated GFR-MDRD Greater than 90; Globulin 3.7 g/dL (2.4-3.5); Glucose 119 mg/dL (80-115); Lipase 12 U/L (8-78); Potassium 3.8 mmol/L (3.5-5.1); Protein, Total 7.7 g/dL (5.8-8.1); Sodium 136 mmol/L (136-145)
[2019-08-05 08:28] LABS: CKMB 0.6 ng/mL (0-6.6)
--- NOTE | 2019-08-05 08:48 | CT ---
CT abdomen and pelvis with IV contrast HISTORY: Abdomen pain. COMPARISON: 04/08/2018. FINDINGS:Prominent calcification within the coronary arteries and throughout the remainder of the art erial structures. Tiny calcifications at the right renal hilum favored to be arterial rather than urinary tract. Mild parenchymal scarring at the right posterolateral lung base. Mild fusiform ectasia of the lower abdominal aorta measuring up to 2.4 cm. Dystrophic calcification of the liver and spleen consistent with healed granulomatous disease. Right hip prosthesis partially visualized. Chronic, severe arthritic and destructive changes of the l eft hip are stable. Prominent degenerative changes lumbar spine. Inflammation centered within the right lower quadrant include circumferential wall thickening and mil d dilatation of the terminal ileum. Less prominent inflammation at the cecum. The appendix is not inflamed. It contains dystrophic calcification distally. Diverticula are present throughout the colon. No associated inflammation apparent. IMPRESSION: Prominent inflammation involving the bowel in the right lower quadrant is centered at the terminal ileum with fluid stranding in the adjacent fat but no abnormal fluid collections. The cecum is involved but not favored to be the origin of the inflammation. Cause is not evident. Possibl e inflammatory bowel disease. No evidence of bowel obstruction. Prominent atherosclerosis. Diverticulosis without evidence of focal diverticulitis. Chronic-type findings are stable.
[2019-08-05 09:34] LABS: Troponin I 0.015 ng/mL (< 0.028)
[2019-08-05] MEDS ORDERED: metroNIDAZOLE 500 MG/100 ML BAG ONE (09:45)
[2019-08-05] MEDS ORDERED: Morphine 4 MG/ML VIAL ONE (11:23)
[2019-08-05 12:27] VITALS: BMI 34.2
[2019-08-05] MEDS ORDERED: Ondansetron ODT 4 MG TAB PO PRN (12:28)
[2019-08-05] MEDS ORDERED: Ondansetron PF 4 MG/2 ML Vial IVP PRN (12:28)
[2019-08-05] MEDS ORDERED: Sodium Chloride 0.9% 1,000 ML IV SCH (12:30)
[2019-08-05] MEDS ORDERED: Morphine 4 MG/ML VIAL IV PRN (12:31)
[2019-08-05] MEDS ORDERED: Iopamidol-370 76% 500 ML 1 ML ONE (13:55)
[2019-08-05] MEDS ORDERED: metroNIDAZOLE 500 MG in Premix Bag 1 BAG IVPB SCH (18:00)
--- NOTE | 2019-08-05 20:08 | PDOC.HHP ---
Hospitalist HPI - History of Present Illness abdominal pain History of Present Illness: This is a 69 year old male with past medical history of CAD who presented to the emergency room with abdominal pain for the past one week. The patient states that his abdominal pain is in the right side of his abdomen, nonradiating. He is unable to describe the quality of the pain. He denies recent travel. He denies aggravation with food intake, however does have a poor appetite. He denies any alleviating factors. He denies nausea or vomiting. Patient reports loose stools, particularly when he coughs. He denies seeing blood in his stools. He also reports some cough and shortness of breath for the past one week, but denies runny nose, sore throat, fevers or chills. ED Course: In the ER, the patient spiked a temperature to 100.7. He had CT abdomen which showed findings of colitis. He received a dose of IV levaquin and flagyl. Hospitalist ROS - Medication Medications: Active Medications Generic Name Dose Route Start Last Admin Trade Name Micahq PRN Reason Stop Dose Admin Sodium Chloride 1,000 mls @ 100 mls/hr 08/05/19 12:30 08/05/19 12:36 Normal Saline 0.9% IV 08/05/19 21:00 1,000 mls .Q10H ALBARO Administration Metronidazole 500 mg/ Device 100 mls @ 100 mls/hr 08/05/19 18:00 08/05/19 18: 40 IVPB 08/05/19 21:00 100 mls Q8H ALBARO Administration Hospitalist History - Past Medical History Other Medical History: Hypertension Hyperlipidemia - Past Surgical History Other Surgical History: Right hip replacement CABG Left wrist surgery - Family History Other Family History: no family history of GI disorders - Social History Smoking Status: Former smoker Alcohol: reports: None Drugs: reports: none Living Situation: Alone 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 Other Social History: Patient lives alone. His 15 years ago. - Exam General Appearance: NAD, awake alert Eye: PERRL, anicteric sclera ENT: normocephalic atraumatic, no oropharyngeal lesions Neck: no JVD Heart: RRR, no murmur, no gallops, no rubs Respiratory: CTAB, no wheezes, no rales, no ronchi Gastrointestinal: soft, non-distended, normal bowel sounds, distended (due to obesity), diminished bowl sounds Gastrointestinal - other findings: RUQ and RLQ tenderness Extremities: no cyanosis, no clubbing, no edema Skin: normal turgor, no lesions, tenting Neurological: cranial nerve grossly intact, normal sensation to touch, no focal deficits, no new deficit Musculoskeletal: normal tone, normal strength, no muscle wasting Psychiatric: normal affect, normal behavior, A&O x 3 Hospitalist Results - Labs Result Diagrams: 08/05/19 07:30 08/05/19 07:30 Lab results: WBC 16.6 thou/uL (4.8-10.8) H 08/05/19 07:30 Hgb 14.2 g/dL (14.0-18.0) 08/05/19 07:30 Hct 42.4 % (42.0-52.0) 08/05/19 07:30 MCV 87.2 fL (78.0-98.0) 08/05/19 07:30 Plt Count 276 thou/uL (130-400) 08/05/19 07:30 Neutrophils % 89.3 % (42.0-75.0) H 08/05/19 07:30 Sodium 136 mmol/L (136-145) 08/05/19 07:30 Potassium 3.8 mmol/L (3.5-5.1) 08/05/19 07:30 Chloride 99 mmol/L (98-107) 08/05/19 07:30 Carbon Dioxide 25 mmol/L (23-31) 08/05/19 07:30 BUN 10 mg/dL (8.4-25.7) 08/05/19 07:30 Creatinine 0.94 mg/dL (0.7-1.3) 08/05/19 07:30 Glucose 119 mg/dL (80-115) H 08/05/19 07:30 Calcium 9.2 mg/dL (7.8-10.44) 08/05/19 07:30 Total Bilirubin 0.7 mg/dL (0.2-1.2) 08/05/19 07:30 AST 17 U/L (5-34) 08/05/19 07:30 ALT 20 U/L (8-55) 08/05/19 07:30 Alkaline Phosphatase 110 U/L (40-110) 08/05/19 07:30 Creatine Kinase 166 U/L (30-200) 08/05/19 07:30 CK-MB (CK-2) 0.6 ng/mL (0-6.6) 08/05/19 07:30 Troponin I 0.015 ng/mL (< 0.028) 08/05/19 09:06 Serum Total Protein 7.7 g/dL (5.8-8.1) 08/05/19 07:30 Albumin 4.0 g/dL (3.4-4.8) 08/05/19 07:30 Lipase 12 U/L (8-78) 08/05/19 07:30 - EKG Interpretation EKG: right bundle branch block, left anterior fascicular block Hospitalist H&P A/P - Plan Plan: CT abdomen: circumferential wall thickening and mild dilation of terminal ileum. Less prominent at the cecum. Sepsis secondary to colitis - patient spiked fever to 101.7, HR 100, WBC 16.6 - will obtain blood cultures, UA, chest X ray - CT scan consistent with colitis - will obtain stool cultures. Will check ova and parasites, C diff - continue IV ciprofloxacin and flagyl - start fluids due to poor po intake #CAD s/p CABG #Elevated troponin - indeterminate, then resolved. Noted to have prominent calcification of coronary arteries on CT scan - check ECHO. EKG shows no new changes. No chest pain currently - patient is not on aspirin for unclear reason. Will start aspirin and statin Shortness of breath - check chest X ray, ECHO, respiratory viral panel Abdominal aorta aneurysm - noted up to 2.[address] scan. Outpatieint follow up Hypertension - hold antihypertensives for now given DVT prophylaxis: lovenox Code status: full code
[2019-08-05] MEDS: Acetaminophen 325 MG TAB PO PRN (21:41)
--- NOTE | 2019-08-05 21:56 | PDOC.FMACP ---
Advance Care Planning - Note Summary: Advanced Care Planning was discussed. The diagnosis, prognosis and goals of care were discussed. Appropriate forms and documentation to accomplish the goals of care were discussed. All questions were answered. The Palliative Care Team will be engaged to assist with completion of any outstanding forms that are needed. Patient would like to be full code Time Spent (mins): 40
[2019-08-05] MEDS ORDERED: Atorvastatin Calcium 20 MG TAB PO SCH (22:00)
[2019-08-05] MEDS ORDERED: Aspirin Chewable 81 MG TAB PO SCH (22:00)
[2019-08-05] MEDS: Dextrose 5 % And 0.9 % NaCl 1,000 ML IV SCH (22:38)
[2019-08-05] MEDS: metroNIDAZOLE 500 MG in Premix Bag 1 BAG IVPB SCH (23:54)
[2019-08-06 03:37] LABS: Bilirubin Negative (Negative); Blood, Urine Small (Negative); Glucose, Urine (Dipstick) Negative (Negative); Leukocyte Negative (Negative); Nitrite Negative (Negative); Protein, Urine (Dipstick) Trace mg/dL (Neg-Trace); Urobilinogen 0.2 mg/dL (Less than 2)
[2019-08-06 03:38] LABS: Clarity Clear (Clear)
[2019-08-06 03:41] LABS: Bacteria/HPF None Seen HPF (None Seen); RBC/HPF 0-3 HPF (0-3); Squamous Epithelial None Seen HPF (0-3); WBC/HPF 0-3 HPF (0-3)
[2019-08-06] MEDS ORDERED: Morphine 4 MG/ML VIAL SLOW IVP SCH (05:45)
[2019-08-06] MEDS ORDERED: hydrALAZINE 10 MG TAB PO SCH (05:45)
[2019-08-06 06:07] LABS: #Eosinphils 0.1 thou/uL (0.0-0.7); #Monocytes 1.2 thou/uL (0.11-0.59); #Neutrophils 13.3 thou/uL (1.40-6.50); %Basophils 0.1 % (0.0-1.0); %Eosinophils 0.9 % (0.0-10.0); %Lymphocytes 6.6 % (21.0-51.0); %Monocytes 7.5 % (0.0-10.0); %Neutrophils 84.9 % (42.0-75.0); Hemoglobin 12.7 g/dL (14.0-18.0); Mean Corpuscular HGB CONC 33.9 g/dL (32.0-36.0); Mean Corpuscular Volume 88.5 fL (78.0-98.0); Mean Platelet Volume 7.4 fL (7.4-10.4); Platelet Count 215 thou/uL (130-400); RBC Distribution Width 12.6 % (11.5-14.5); Red Blood Cell (RBC) Count 4.23 mill/uL (4.70-6.10); White Blood Cell (WBC) Count 15.6 thou/uL (4.8-10.8)
[2019-08-06 06:18] LABS: Anion Gap 12 mmol/L (10-20); BUN (Urea Nitrogen) 8 mg/dL (8.4-25.7); Calc. Creatinine Clearance 124 mL/min (70-130); Calcium 8.7 mg/dL (7.8-10.44); Carbon Dioxide 24 mmol/L (23-31); Chloride 103 mmol/L (98-107); Estimated GFR-MDRD Greater than 90; Glucose 96 mg/dL (80-115); Potassium 3.6 mmol/L (3.5-5.1); Sodium 135 mmol/L (136-145)
--- NOTE | 2019-08-06 07:42 | RAD ---
Chest one view HISTORY: Fever. COMPARISON: 10/08/2017. FINDINGS: Cardiac silhouette is magnified and enlarged. Shallow inspiration accentuates pulmonary mar kings that are upper limits of normal. Patient is slightly rotated leftward. No lobar consolidation or evidence of pneumothorax. There are prominent degenerative changes of the s [place]. IMPRESSION: Cardiomegaly. Borderline pulmonary vascular congestion.
[2019-08-06] MEDS: Aspirin 81 mg Enteric Coated Tablet PO SCH (08:29)
[2019-08-06] MEDS: Allopurinol 100 MG TAB PO SCH (08:29)
[2019-08-06] MEDS: Enoxaparin Sodium 40 MG/0.4 ML SYRINGE SC SCH (08:29)
[2019-08-06] MEDS: metroNIDAZOLE 500 MG in Premix Bag 1 BAG IVPB SCH ×3 (08:30→23:14)
[2019-08-06] MEDS ORDERED: Prevnar 13-Val Conj/PF 0.5 ML SYRINGE IM ONE (09:00)
--- NOTE | 2019-08-06 15:50 | PDOC.HOSPP ---
- Subjective Encounter Date: 08/06/19 Encounter Time: 15:50 Subjective: CC: abdominal pain The patient continues to report significant pain. His diarrhea has resolved and now he is constipated. He is eating a diet and has some pain with eating. No fevers or chills - Objective Vital Signs & Weight: Vital Signs (12 hours) Temp Pulse Resp BP BP Pulse Ox 08/06/19 08:00 100.3 F H 81 16 134/55 L 96 08/06/19 05:56 87 188/77 H 08/06/19 04:00 99.0 F 87 20 188/77 H 94 L Weight Weight 225 lb Result Diagrams: 08/06/19 05:35 08/06/19 05:35 Hospitalist ROS - Medication Medications: Active Medications Generic Name Dose Route Start Last Admin Trade Name Freq PRN Reason Stop Dose Admin Acetaminophen 650 mg 08/05/19 13:03 08/05/19 21:41 Tylenol PO 650 mg Q4H PRN Administration Headache/Fever/Mild Pain (1-3) Allopurinol 100 mg 08/06/19 09:00 08/06/19 08:29 Zyloprim PO 100 mg DAILY ALBARO Administration Aspirin 81 mg 08/06/19 09:00 08/06/19 08:29 Ecotrin PO 81 mg DAILY ALBARO Administration Enoxaparin Sodium 40 mg 08/06/19 09:00 08/06/19 08:29 Lovenox SC 40 mg 0900 ALBARO Administration Ciprofloxacin/Dextrose 400 mg/ 200 mls @ 200 mls/hr 08/06/19 09:00 08/06/19 10:08 Device IVPB 200 mls Q12HR ALBARO Administration Metronidazole 500 mg/ Device 100 mls @ 100 mls/hr 08/05/19 23:59 08/06/19 08: 30 IVPB 100 mls 0800,1600,2359 ALBARO Administration Dextrose/Sodium Chloride 1,000 mls @ 75 mls/hr 08/05/19 22:00 08/05/19 22:38 D5 0.9% Ns IV 1,000 mls .[id number] ALBARO Administration Sodium Chloride 10 ml 08/05/19 21:00 08/06/19 11:33 Flush - Normal Saline IVF Not Given Q12HR ALBARO - Exam General Appearance: NAD, awake alert Eye: PERRL, anicteric sclera ENT: normocephalic atraumatic, no oropharyngeal lesions Neck: supple, no JVD Heart: RRR, no murmur, no gallops, no rubs Respiratory: CTAB, no wheezes, no rales, no ronchi Gastrointestinal: non-tender, no palpable masses Gastrointestinal - other findings: diffuse mild tenderness, no rebound or guarding Extremities: no cyanosis, no edema Hosp A/P - Plan ECHO: EF 55-60%, diastolic dysfunction, mild MR, mild TR CT abdomen: circumferential wall thickening and mild dilation of terminal ileum. Less prominent at the cecum. Chest Xray: cardiomegaly, borderline pulmonary vascular congestion This is 69 year old male who presented with sepsis from colitis Sepsis secondary to colitis - patient spiked fever to 101.7, HR 100, WBC 16.6 - blood cultures, UA and chest X ray show no signs of infection. STool cultures and C diff negative - CT scan consistent with colitis - continue IV ciprofloxacin and flagyl day 2 - will obtain GI consult due to persistent pain #CAD s/p CABG #Elevated troponin - indeterminate, then resolved. Noted to have prominent calcification of coronary arteries on CT scan - check ECHO. EKG shows no new changes. No chest pain currently - patient is not on aspirin for unclear reason. Will start aspirin and statin Shortness of breath - chest X ray showed cardiomegaly, borderline pulmonary edema - no pneumonia Abdominal aorta aneurysm - noted up to 2.[address] scan. Outpatieint follow up Hypertension - hold antihypertensives for now given sepsis - BP 130-180 - stop fluids DVt prophylaxis: enoxaparin Code status; full code
[2019-08-06] MEDS: Dextrose 5 % And 0.9 % NaCl 1,000 ML IV SCH (16:36)
[2019-08-06] MEDS: Acetaminophen 325 MG TAB PO PRN (18:06)
[2019-08-06] MEDS: Atorvastatin Calcium 20 MG TAB PO SCH (20:32)
[2019-08-06] MEDS: Morphine 2 MG/ML SYRINGE SLOW IVP PRN (22:37)
[2019-08-07] MEDS: Morphine 2 MG/ML SYRINGE SLOW IVP PRN ×4 (05:19→22:37)
[2019-08-07] MEDS: Acetaminophen 325 MG TAB PO PRN (05:26)
[2019-08-07] MEDS: Allopurinol 100 MG TAB PO SCH (08:17)
[2019-08-07] MEDS: Aspirin 81 mg Enteric Coated Tablet PO SCH (08:17)
[2019-08-07] MEDS: Enoxaparin Sodium 40 MG/0.4 ML SYRINGE SC SCH (08:18)
[2019-08-07] MEDS: metroNIDAZOLE 500 MG in Premix Bag 1 BAG IVPB SCH ×3 (08:18→23:42)
[2019-08-07 10:11] LABS: Hemoglobin 13.3 g/dL (14.0-18.0); Mean Corpuscular HGB CONC 33.5 g/dL (32.0-36.0); Mean Corpuscular Hemoglobin 29.2 pg (27.0-31.0); Mean Corpuscular Volume 87.2 fL (78.0-98.0); Mean Platelet Volume 7.4 fL (7.4-10.4); Platelet Count 251 thou/uL (130-400); RBC Distribution Width 12.5 % (11.5-14.5); Red Blood Cell (RBC) Count 4.54 mill/uL (4.70-6.10); White Blood Cell (WBC) Count 16.4 thou/uL (4.8-10.8)
[2019-08-07] MEDS ORDERED: GoLYTELY 4,000 ml Bottle PO SCH (13:45)
--- NOTE | 2019-08-07 19:10 | PDOC.HOSPP ---
- Subjective Encounter Date: 08/07/19 Encounter Time: 15:30 Subjective: f/u: colitis The patient continues to report persistent abdominal pain. He states nothing has helped his pain. He is able to tolerate diet some. No nausea or vomiting. He is constipated, hasn't had a bowel movement in a few days - Objective Vital Signs & Weight: Vital Signs (12 hours) Temp Pulse Resp BP Pulse Ox 08/07/19 16:39 98.8 F 87 20 164/76 H 96 08/07/19 12:00 99.1 F 72 18 162/83 H 97 08/07/19 07:57 98.7 F 73 16 151/68 H 96 Weight Admit Weight 225 lb Weight 225 lb I&O: 08/06/19 08/07/19 08/08/19 06:59 06:59 06:59 Intake Total 750 Balance 750 Result Diagrams: 08/07/19 09:51 08/06/19 05:35 Hospitalist ROS - Review of Systems Constitutional: denies: fever, chills Cardiovascular: denies: light headedness Gastrointestinal: reports: abdominal pain - Medication Medications: Active Medications Generic Name Dose Route Start Last Admin Trade Name Freq PRN Reason Stop Dose Admin Acetaminophen 650 mg 08/05/19 13:03 08/07/19 05:26 Tylenol PO 650 mg Q4H PRN Administration Headache/Fever/Mild Pain (1-3) Allopurinol 100 mg 08/06/19 09:00 08/07/19 08:17 Zyloprim PO 100 mg DAILY ALBARO Administration Aspirin 81 mg 08/06/19 09:00 08/07/19 08:17 Ecotrin PO 81 mg DAILY ALBARO Administration Atorvastatin Calcium 20 mg 08/06/19 21:00 08/06/19 20:32 Lipitor PO 20 mg HS ALBARO Administration Enoxaparin Sodium 40 mg 08/06/19 09:00 08/07/19 08:18 Lovenox SC 40 mg 0900 ALBARO Administration Ciprofloxacin/Dextrose 400 mg/ 200 mls @ 200 mls/hr 08/06/19 09:00 08/07/19 09:50 Device IVPB 200 mls Q12HR ALBARO Administration Metronidazole 500 mg/ Device 100 mls @ 100 mls/hr 08/05/19 23:59 08/07/19 08: 18 IVPB 100 mls 0800,1600,2359 ALBARO Administration Morphine Sulfate 2 mg 08/07/19 09:40 08/07/19 15:30 Morphine SLOW IVP 2 mg Q4H PRN Administration Moderate to Severe Pain (6-10) Sodium Chloride 10 ml 08/05/19 21:00 08/07/19 08:21 Flush - Normal Saline IVF 10 ml Q12HR ALBARO Administration Sodium Chloride 10 ml 08/05/19 12:29 08/07/19 15:32 Flush - Normal Saline IVF 10 ml PRN PRN Administration Saline Flush - Exam General Appearance: NAD, awake alert Eye: PERRL, anicteric sclera ENT: normocephalic atraumatic, no oropharyngeal lesions Neck: no JVD Heart: RRR, no murmur, no gallops, no rubs Respiratory: CTAB, no wheezes, no rales, no ronchi Gastrointestinal: soft Gastrointestinal - other findings: diffuse mild tenderness, no rebound or guarding Extremities: no cyanosis, no clubbing, no edema Skin: normal turgor, no lesions, no rashes Hosp A/P - Plan ECHO: EF 55-60%, diastolic dysfunction, mild MR, mild TR CT abdomen: circumferential wall thickening and mild dilation of terminal ileum. Less prominent at the cecum. Chest Xray: cardiomegaly, borderline pulmonary vascular congestion This is 69 year old male who presented with sepsis from colitis Sepsis secondary to colitis - patient spiked fever to 101.7, HR 100, WBC 16.6 - blood cultures, UA and chest X ray show no signs of infection. STool cultures and C diff negative - CT scan consistent with colitis - continue IV ciprofloxacin and flagyl day 3 - GI consulted, plan for colonoscopy tomorrow #CAD s/p CABG #Elevated troponin- likely demand ischemia #Diastolic CHF - indeterminate, then resolved. Noted to have prominent calcification of coronary arteries on CT scan - ECHO shows no wall motion abnormalities. EKG shows no new changes. No chest pain currently - patient is not on aspirin for unclear reason. Will start aspirin and statin Abdominal aorta aneurysm - noted up to 2.[address] scan. Outpatieint follow up Hypertension - blood pressure 150-160 - will resume nifedipine for now. Continue to hold others DVt prophylaxis: enoxaparin Code status; full code
[2019-08-07] MEDS ORDERED: NIFEdipine XL 60 MG TAB PO SCH (19:15)
[2019-08-07] MEDS: Atorvastatin Calcium 20 MG TAB PO SCH (21:33)
--- NOTE | 2019-08-08 01:46 | CON ---
DATE OF CONSULTATION: 08/07/2019 REASON FOR CONSULTATION: Right lower quadrant abdominal pain, abnormal GI imaging. CONSULTING PROVIDER: Phuong Villagomez MD HISTORY OF PRESENT ILLNESS: The patient is a 69-year-old male with past medical history of coronary artery disease, hypertension, and hyperlipidemia, initially presenting with complaints of abdominal pain and fever. Per patient, he has been having increased right lower quadrant abdominal pain that has been present for the last year in an intermittent type fashion, but increasing in terms of frequency over the last 4 to 5 days. This pain is considered as a "severe pain or hurting"/pressure type sensation, is nonradiating, constant in duration, and reaches a severity of 8 to 9/10. The pain is worse with standing up and not having a bowel movement, better with having a bowel movement. This pain is associated with subjective fevers, chills, and also endorses more oily type stools. However, he denies any nausea, vomiting, hematemesis, melena, hematochezia, dysphagia, odynophagia, or weight loss. During the course of this hospitalization, he has undergone significant testing as well as placed on antibiotics, but has not had any significant relief in his abdominal pain with administration of antibiotics. Of note, the patient underwent both upper endoscopy and colonoscopy on July 27, 2018 with normal findings on the upper endoscopy. However, there were 2 small polyps measuring 3 mm and 4 mm in the ascending and sigmoid colons respectively. No other abnormalities were seen at that time. REVIEW OF SYSTEMS: A 10-category review of systems was obtained with all responses negative except for the pertinent positives as listed in HPI. PAST MEDICAL HISTORY: As per HPI. PAST SURGICAL HISTORY: Right hip replacement, CABG, and left wrist surgery. FAMILY HISTORY: Denies any GI malignancies. SOCIAL HISTORY: Denies any tobacco, alcohol, or illicit drug use. OUTPATIENT MEDICATIONS: Reviewed. ALLERGIES: NO KNOWN DRUG ALLERGIES. PHYSICAL EXAMINATION: VITAL SIGNS: Temperature 98.8, pulse 87, blood pressure 164/76, respiratory rate 20, saturating 96% on room air. GENERAL: The patient was lying in bed, in no acute distress. Alert and oriented x4. HEENT: Normocephalic, atraumatic. NECK: Supple. No JVD or scleral icterus noted. CARDIOVASCULAR: Regular rate and rhythm with no discernible murmurs, gallops, or rubs. RESPIRATORY: Clear to auscultation bilaterally with no discernible wheezes or rales. ABDOMEN: Normoactive bowel sounds. Soft, nondistended. Tenderness to palpation in the right lower quadrant, right upper quadrant and periumbilical regions. EXTREMITIES: No cyanosis, clubbing, or edema. LABORATORY DATA: CBC with a white blood cell count of 15.6, hemoglobin 12.7, hematocrit 37.5, platelets 215. Chemistry with a sodium of 135, potassium 3.6, chloride 103, CO2 of 24, BUN 8, creatinine 0.82, glucose 96. AST 17, ALT 20, alkaline phosphatase 110, total bilirubin 0.7, lipase 12, albumin 4.0. Infectious stool studies including Campylobacter, E coli, C diff and ova and parasites have all been negative with stool culture also negative. IMAGING DATA: CT of the abdomen and pelvis was obtained on August 05, 2019, which showed dystrophic calcification of the liver and spleen consistent with healed granulomatous disease, circumferential wall thickening and mild dilation of the terminal ileum with less prominent inflammation of the cecum was also seen. Pancolonic diverticulosis without diverticulitis also seen. ASSESSMENT AND PLAN: The patient is a 69-year-old male with past medical history of coronary artery disease, hypertension, and hyperlipidemia, presenting with right lower quadrant abdominal pain and GI imaging showing possible terminal ileitis. Right lower quadrant abdominal pain/terminal ileitis: The patient is presenting with intermittent episodes of increased right lower quadrant abdominal pain that has been present for at least the last year with the onset of this pain shortly after his colonoscopy performed in July 2018. This pain is characterized as a pressure type sensation, is nonradiating and reaches a severity of 8 to 9/10. With worsening of this abdominal pain, it prompted him to seek healthcare assistance at the [facility] ER and during the course of this admission has had a negative infectious stool workup, but imaging findings consistent with terminal ileitis. At this time, the differential could include Crohn disease infection (despite negative stool studies thus far), autoimmune enteritis, Meckel's diverticulum (much less likely) or GI neoplasm. RECOMMENDATIONS: 1. Pain control per primary team. 2. We would place the patient on a clear liquid diet and make him n.p.o. at midnight in anticipation of colonoscopy. 3. We will plan for colonoscopy for intraluminal evaluation tomorrow and terminal ileal intubation for possible Crohn disease. 4. We would consider discontinuation of antibiotics given no improvement in his clinical status and negative infectious stool studies. We will continue to follow. Please call with any questions. Job ID: [id number]
[2019-08-08 06:02] LABS: Hemoglobin 13.1 g/dL (14.0-18.0); Mean Corpuscular HGB CONC 33.4 g/dL (32.0-36.0); Mean Corpuscular Hemoglobin 29.2 pg (27.0-31.0); Mean Corpuscular Volume 87.2 fL (78.0-98.0); Mean Platelet Volume 7.4 fL (7.4-10.4); Platelet Count 312 thou/uL (130-400); RBC Distribution Width 12.4 % (11.5-14.5); Red Blood Cell (RBC) Count 4.48 mill/uL (4.70-6.10)
[2019-08-08 06:24] LABS: Anion Gap 13 mmol/L (10-20); BUN (Urea Nitrogen) 13 mg/dL (8.4-25.7); Calc. Creatinine Clearance 107 mL/min (70-130); Calcium 8.8 mg/dL (7.8-10.44); Carbon Dioxide 23 mmol/L (23-31); Chloride 98 mmol/L (98-107); Estimated GFR-MDRD Greater than 90; Glucose 106 mg/dL (80-115); Potassium 3.4 mmol/L (3.5-5.1); Sodium 131 mmol/L (136-145)
[2019-08-08] MEDS: Allopurinol 100 MG TAB PO SCH (08:26)
[2019-08-08] MEDS: NIFEdipine XL 60 MG TAB PO SCH (08:26)
[2019-08-08] MEDS: Aspirin 81 mg Enteric Coated Tablet PO SCH (08:26)
[2019-08-08] MEDS: metroNIDAZOLE 500 MG in Premix Bag 1 BAG IVPB SCH ×3 (08:27→23:30)
[2019-08-08] MEDS: Morphine 2 MG/ML SYRINGE SLOW IVP PRN (08:33)
[2019-08-08] MEDS ORDERED: Potassium Chloride 20 MEQ in Premix Bag 1 BAG IVPB SCH (11:15)
[2019-08-08] MEDS ORDERED: Magnesium Citrate 300 ML BOT PO PRN (18:49)
--- NOTE | 2019-08-08 19:18 | PDOC.HOSPP ---
- Subjective Encounter Date: 08/08/19 Encounter Time: 11:00 Subjective: F/u: abdominal pain Patient states that her abdominal pain is still severe. He had not finished drinking the golytely prep because it is causing his abdominal pain and he doesn 't like the taste. He is taking his time, but his stools are still hard. Colonoscopy cancelled for this reason He is very frustrated, doesn't give much detail on quality of his pain. No nausea or vomiting. - Objective Vital Signs & Weight: Vital Signs (12 hours) Temp Pulse Resp BP BP Pulse Ox 08/08/19 16:00 98.7 F 82 18 123/74 95 08/08/19 11:33 98.5 F 83 20 110/67 96 08/08/19 08:26 90 127/76 08/08/19 08:24 96 08/08/19 08:00 98.3 F 89 20 127/76 96 Weight Admit Weight 225 lb Weight 225 lb I&O: 08/07/19 08/08/19 08/09/19 06:59 06:59 06:59 Intake Total 750 1020 Balance 750 1020 Result Diagrams: 08/08/19 05:35 08/08/19 05:35 Hospitalist ROS - Review of Systems Constitutional: denies: fever, chills - Medication Medications: Active Medications Generic Name Dose Route Start Last Admin Trade Name Freq PRN Reason Stop Dose Admin Acetaminophen 650 mg 08/05/19 13:03 08/07/19 05:26 Tylenol PO 650 mg Q4H PRN Administration Headache/Fever/Mild Pain (1-3) Allopurinol 100 mg 08/06/19 09:00 08/08/19 08:26 Zyloprim PO 100 mg DAILY ALBARO Administration Aspirin 81 mg 08/06/19 09:00 08/08/19 08:26 Ecotrin PO 81 mg DAILY ALBARO Administration Atorvastatin Calcium 20 mg 08/06/19 21:00 08/07/19 21:33 Lipitor PO 20 mg HS ALBARO Administration Ciprofloxacin/Dextrose 400 mg/ 200 mls @ 200 mls/hr 08/06/19 09:00 08/08/19 10:44 Device IVPB 200 mls Q12HR ALBARO Administration Metronidazole 500 mg/ Device 100 mls @ 100 mls/hr 08/05/19 23:59 08/08/19 15: 26 IVPB 100 mls 0800,1600,2359 ALBARO Administration Morphine Sulfate 2 mg 08/07/19 09:40 08/08/19 08:33 Morphine SLOW IVP 2 mg Q4H PRN Administration Moderate to Severe Pain (6-10) Nifedipine 60 mg 08/08/19 09:00 08/08/19 08:26 Procardia Xl PO 60 mg DAILY ALBARO Administration Sodium Chloride 10 ml 08/05/19 21:00 08/08/19 08:27 Flush - Normal Saline IVF 10 ml Q12HR ALBARO Administration Sodium Chloride 10 ml 08/05/19 12:29 08/07/19 15:32 Flush - Normal Saline IVF 10 ml PRN PRN Administration Saline Flush - Exam General Appearance: NAD, awake alert Eye: PERRL, anicteric sclera ENT: normocephalic atraumatic, no oropharyngeal lesions Neck: no JVD Heart: RRR, no murmur, no gallops, no rubs, normal peripheral pulses Respiratory: CTAB, no wheezes, no rales, no ronchi Gastrointestinal: soft, normal bowel sounds Gastrointestinal - other findings: diffuse mild tenderness, and distended Extremities: no cyanosis, no clubbing, no edema Skin: normal turgor, no lesions, no rashes Hosp A/P - Plan ECHO: EF 55-60%, diastolic dysfunction, mild MR, mild TR CT abdomen: circumferential wall thickening and mild dilation of terminal ileum. Less prominent at the cecum. Chest Xray: cardiomegaly, borderline pulmonary vascular congestion This is 69 year old male who presented with sepsis from colitis Sepsis secondary to colitis - patient spiked fever to 101.7, HR 100, WBC 16.6 on admission. Blood cultures, UA and chest X ray show no signs of infection. Stool cultures and C diff negative - CT scan consistent with colitis - patient unable to tolerate prep, will place back on clear liquid and reorder prep - will switch to zosyn and flagyl for better coverage while awaiting colonoscopy #CAD s/p CABG #Elevated troponin- likely demand ischemia #Diastolic CHF - indeterminate, then resolved. Noted to have prominent calcification of coronary arteries on CT scan - ECHO shows no wall motion abnormalities. EKG shows no new changes. No chest pain currently - patient is not on aspirin for unclear reason. Continue aspirin and statin Abdominal aorta aneurysm - noted up to 2.[address] scan. Outpatient follow up Hypertension - blood pressure 150-160 - continue nifedipine for now. Continue to hold others DVt prophylaxis: enoxaparin Code status; full code
[2019-08-08] MEDS: GoLYTELY 4,000 ml Bottle PO SCH (19:30)
[2019-08-08] MEDS: Atorvastatin Calcium 20 MG TAB PO SCH (19:34)
--- NOTE | 2019-08-08 19:37 | PRG ---
DATE OF SERVICE: 08/08/2019 REASON FOR CONSULTATION: Right lower quadrant abdominal pain, abnormal GI imaging. SUBJECTIVE: Overnight, the patient had difficulty tolerating the GoLYTELY prep with increased abdominal cramping, nausea, and at times vomiting of the prep. Therefore, he was unable to fully complete the prep and still had not had clearance of his stool earlier this morning. Subsequently, he was placed on a clear liquid diet with plans to repeat colonoscopy tomorrow. Currently, he states that his abdominal pain in the right lower quadrant is the same if not worse when compared to yesterday. However, he currently denies any nausea, vomiting, GI bleeding, dysphagia, or odynophagia. He has been able to tolerate a clear liquid diet without difficulty during the course of today as well, but he is somewhat reluctant about repeating the prep tonight. OBJECTIVE: VITAL SIGNS: Temperature 98.7, pulse 82, blood pressure 123/74, respiratory rate 18, and saturating 95% on room air. GENERAL: The patient is lying in bed, in no acute distress. Alert and oriented x4. CARDIOVASCULAR: Regular rate and rhythm. RESPIRATORY: Clear to auscultation bilaterally. ABDOMEN: Normoactive bowel sounds. Soft and nondistended. Tenderness to palpation in the right lower quadrant, right upper quadrant, and periumbilical regions. EXTREMITIES: No cyanosis, clubbing, or edema. LABORATORY DATA: CBC with a white blood cell count of 17, hemoglobin 13.1, hematocrit 39, and platelets 312. Chemistry with a sodium of 131, potassium 3.4, chloride 98, CO2 of 23, BUN 13, creatinine 0.95, and glucose 106. IMAGING DATA: No current GI imaging is available for review. ASSESSMENT AND PLAN: The patient is a 69-year-old male with past medical history of coronary artery disease, hypertension, hyperlipidemia, presenting with right lower quadrant abdominal pain and GI imaging showing possible terminal ileitis concerning for an infectious process versus inflammatory bowel disease. Right lower quadrant abdominal pain/terminal ileitis. The patient initially presented with intermittent episodes of increasing right lower quadrant abdominal pain that has been present for at least the last year, but becoming more frequent within the last 1 to 2 weeks. Upon initial evaluation at [facility], he was noted to have an increased white blood cell count and imaging consistent with inflammation of the terminal ileum and extension into the cecum. Infectious stool studies were negative, although the patient was placed on antibiotics, which do not seem to be currently improving his symptoms. At this time, the differential could include Crohn disease, infection, autoimmune enteritis, Meckel diverticulum, or gastrointestinal neoplasm (less likely given negative colonoscopy approximately 1 year ago). RECOMMENDATIONS: 1. Pain control per primary team. 2. We will keep the patient on a clear liquid diet for the rest of today with plans for repeat prep tonight with GoLYTELY. 3. I will also order magnesium citrate to be used as needed to assist the patient with colonic preparation for colonoscopy tomorrow too. We will plan for possible colonoscopy tomorrow. 4. We will consider discontinuation of the antibiotics given no improvement in his clinical status and negative infectious stool studies, broadening coverage could also be considered as well. We will continue to follow. Please call with any questions. Job ID: [id number]
[2019-08-09] MEDS ORDERED: metroNIDAZOLE 500 MG/100 ML BAG ONE (07:17)
[2019-08-09] MEDS ORDERED: Promethazine HCl 25 MG/ML VIAL SLOW IVP PRN (08:47)
[2019-08-09] MEDS ORDERED: Ondansetron HCl/PF 4 MG/2 ML Vial IVP PRN (08:47)
[2019-08-09] MEDS ORDERED: Promethazine HCl 25 MG/ML VIAL IM PRN (08:47)
[2019-08-09] MEDS: metroNIDAZOLE 500 MG in Premix Bag 1 BAG IVPB SCH ×3 (09:20→23:32)
[2019-08-09] MEDS: Allopurinol 100 MG TAB PO SCH (09:22)
[2019-08-09] MEDS: Aspirin 81 mg Enteric Coated Tablet PO SCH (09:22)
[2019-08-09] MEDS: NIFEdipine XL 60 MG TAB PO SCH (09:22)
[2019-08-09 10:06] LABS: Anion Gap 10 mmol/L (10-20); BUN (Urea Nitrogen) 13 mg/dL (8.4-25.7); Calc. Creatinine Clearance 121 mL/min (70-130); Calcium 8.9 mg/dL (7.8-10.44); Carbon Dioxide 29 mmol/L (23-31); Chloride 98 mmol/L (98-107); Estimated GFR-MDRD Greater than 90; Glucose 110 mg/dL (80-115); Potassium 3.4 mmol/L (3.5-5.1); Sodium 134 mmol/L (136-145)
[2019-08-09 10:12] LABS: Hemoglobin 13.3 g/dL (14.0-18.0); Mean Corpuscular HGB CONC 33.7 g/dL (32.0-36.0); Mean Corpuscular Hemoglobin 29.3 pg (27.0-31.0); Mean Corpuscular Volume 86.8 fL (78.0-98.0); Mean Platelet Volume 6.9 fL (7.4-10.4); Platelet Count 350 thou/uL (130-400); RBC Distribution Width 12.4 % (11.5-14.5); Red Blood Cell (RBC) Count 4.55 mill/uL (4.70-6.10); White Blood Cell (WBC) Count 14.7 thou/uL (4.8-10.8)
[2019-08-09] MEDS ORDERED: Potassium Chloride 20 MEQ TAB PO SCH (11:00)
[2019-08-09] MEDS ORDERED: PROPOFOL 200 MG/20 ML VIAL ONE (11:07)
[2019-08-09] MEDS: Morphine 2 MG/ML SYRINGE SLOW IVP PRN (14:15)
--- NOTE | 2019-08-09 14:43 | PDOC.HOSPP ---
- Subjective Encounter Date: 08/09/19 Encounter Time: 13:00 Subjective: The patient had a colonoscopy today, results pending. Pain is still about the same. Plan for MRI enterography today. He denies nausea/vomiting. Patient reports 9/10 abdominal pain. No diarrhea - Objective Vital Signs & Weight: Vital Signs (12 hours) Temp Pulse Resp BP Pulse Ox 08/09/19 09:22 94 08/09/19 09:20 98.3 F 94 20 132/73 08/09/19 08:00 94 L Weight Admit Weight 225 lb Weight 225 lb I&O: 08/08/19 08/09/19 08/10/19 06:59 06:59 06:59 Intake Total 1020 1640 Balance 1020 1640 Result Diagrams: 08/09/19 09:36 08/09/19 09:36 Hospitalist ROS - Review of Systems Constitutional: denies: fever, chills - Medication Medications: Active Medications Generic Name Dose Route Start Last Admin Trade Name Freq PRN Reason Stop Dose Admin Acetaminophen 650 mg 08/05/19 13:03 08/07/19 05:26 Tylenol PO 650 mg Q4H PRN Administration Headache/Fever/Mild Pain (1-3) Allopurinol 100 mg 08/06/19 09:00 08/09/19 09:22 Zyloprim PO 100 mg DAILY ALBARO Administration Aspirin 81 mg 08/06/19 09:00 08/09/19 09:22 Ecotrin PO 81 mg DAILY ALBARO Administration Atorvastatin Calcium 20 mg 08/06/19 21:00 08/08/19 19:34 Lipitor PO 20 mg HS ALBARO Administration Ciprofloxacin/Dextrose 400 mg/ 200 mls @ 200 mls/hr 08/06/19 09:00 08/09/19 09:21 Device IVPB 200 mls Q12HR ALBARO Administration Metronidazole 500 mg/ Device 100 mls @ 100 mls/hr 08/05/19 23:59 08/09/19 14: 16 IVPB 100 mls 0800,1600,2359 ALBARO Administration Magnesium Citrate 300 ml 08/08/19 18:49 08/08/19 21:01 Citrate Of Magnesia 300 Ml Bot PO 08/09/19 18:50 300 ml ONE PRN Administration Constipation Morphine Sulfate 2 mg 08/07/19 09:40 08/09/19 14:15 Morphine SLOW IVP 2 mg Q4H PRN Administration Moderate to Severe Pain (6-10) Nifedipine 60 mg 08/08/19 09:00 08/09/19 09:22 Procardia Xl PO 60 mg DAILY ALBARO Administration Polyethylene Glycol/Electrolytes 4,000 ml 08/08/19 19:00 08/08/19 19:30 Golytely PO 08/09/19 19:01 4,000 ml NOW ALBARO Administration Sodium Chloride 10 ml 08/05/19 21:00 08/09/19 09:23 Flush - Normal Saline IVF 10 ml Q12HR ALBARO Administration Sodium Chloride 10 ml 08/05/19 12:29 08/07/19 15:32 Flush - Normal Saline IVF 10 ml PRN PRN Administration Saline Flush - Exam General Appearance: NAD, awake alert Eye: PERRL, anicteric sclera ENT: normocephalic atraumatic, no oropharyngeal lesions Neck: no JVD Heart: RRR, no murmur, no gallops, no rubs Respiratory: CTAB, no wheezes, no rales, no ronchi Gastrointestinal: soft Gastrointestinal - other findings: diffuse mild tenderness, no rebound guarding or rigidity Extremities: no cyanosis, no clubbing, no edema Hosp A/P - Plan ECHO: EF 55-60%, diastolic dysfunction, mild MR, mild TR CT abdomen: circumferential wall thickening and mild dilation of terminal ileum. Less prominent at the cecum. Chest Xray: cardiomegaly, borderline pulmonary vascular congestion This is 69 year old male who presented with sepsis from colitis Sepsis secondary to colitis - patient spiked fever to 101.7, HR 100, WBC 16.6 on admission. Blood cultures, UA and chest X ray show no signs of infection. CT scan showed colitis. Stool cultures and C diff negative - CT scan consistent with colitis. S/p colonoscopy today. Report pending - plan for MRI enterography per GI. No plan for steroids currently - switch antibiotics to zosyn and flagyl. WBC is coming down #CAD s/p CABG #Elevated troponin- likely demand ischemia #Diastolic CHF - indeterminate, then resolved. Noted to have prominent calcification of coronary arteries on CT scan - ECHO shows no wall motion abnormalities. EKG shows no new changes. No chest pain currently -continue aspirin and statin Abdominal aorta aneurysm - noted up to 2.[address] scan. Outpatient follow up Hypertension - controlled - continue nifedipine DVt prophylaxis: enoxaparin Code status; full code
--- NOTE | 2019-08-09 15:08 | OP ---
DATE OF PROCEDURE: 08/09/2019 PROCEDURE PERFORMED: Colonoscopy with biopsy. PREPROCEDURE DIAGNOSES: 1. Prior history of polyps. 2. Abdominal pain with CAT showing diverticulosis but no diverticulitis. 3. Prominent inflammation involving the right lower quadrant with fluid stranding adjacent fat. POSTPROCEDURE DIAGNOSES: 1. Diverticulosis without diverticulitis. 2. Small rectal polyp removed by cold snare polypectomy. 3. A few small aphthoid erosions in the terminal ileum examined to 15 cm biopsied. No severe ileitis seen. It is unclear if we just were not able to reach the extent of the small bowel to where this was seen on the CAT scan. 4. Possible loss of vascular pattern in rectosigmoid colon. Random biopsies obtained. 5. Normal ascending, transverse, and descending colon with random biopsies obtained. RECOMMENDATION: 1. MRI enterography. 2. Await biopsies. 3. Depending on biopsy findings, consider Prometheus studies for inflammatory bowel disease. 4. We will start full liquid diet. ANESTHESIA: TIVA. PROCEDURE IN DETAIL: After the patient was informed of the risks, benefits, and possible complications of endoscopy including perforation, bleeding, reaction to medication, informed consent was obtained. The patient was brought to the endoscopy suite, where he was sedated in gradual fashion. Once he was comfortable, rectal exam was performed. There was no evidence of perianal disease. The endoscope was advanced into the anal canal through the colon to the cecum, which was identified by ileocecal valve and the appendiceal orifice. There was diverticulosis throughout the colon with no acute diverticulitis. There was possibly a small area of decreased vascular pattern in the rectosigmoid, which was biopsied randomly. Random biopsies were taken of the proximal colon. The ileocecal valve and appendix appeared normal. The terminal ileum actually appeared very normal except for 2 to 3 small aphthoid erosions measuring at max 3 mm in size. Biopsies were taken from these. The endoscope was advanced about 15 cm into the ileum and it could be advanced no further. The scope was then removed. The retroflexed views in the rectum were normal. Some internal hemorrhoids. The patient tolerated the procedure well with no complications. Job ID: [id number]
--- NOTE | 2019-08-09 16:53 | MRI ---
MR of the abdomen with and without IV contrast INDICATION: History of Crohn's disease Comparison CT abdomen pelvis dated August 05, 2019 TECHNIQUE: Multiplanar multisequence MR images were obtained of the abdomen utilizing an MR enterogra phy protocol. 20 cc of MultiHance was utilized for the examination. FINDINGS: Patient motion artifact slightly limits image detail. There is marked wall thickening and narrowing involving the terminal ileum with surrounding inflammat ory stranding that is similar to the comparison CT evaluation. No additional focal area of wall thickening or narrowing is identified. There is mild scattered free fluid within the abdomen. The lori er, gallbladder, pancreas, adrenal glands and spleen are normal appearing. No focal renal lesions evident. There is a small subcentimeter cyst involving for possible right kidney. No lymphadenopathy is evident. No overt bone marrow signal abnormality is demonstrated. There is susceptibility artifact from a right total hip prosthesis. IMPRESSION: Prominent wall thickening with stenosis present at the level of the terminal ileum with s urrounding inflammatory stranding is consistent with acute terminal ileitis consistent with the patient's history of Crohn's disease. No definite drainable fluid collection is evident. Mild free fl uid within the abdomen.
[2019-08-09] MEDS: Piperacillin/Tazobactam 3.375 GM in Sodium Chloride 0.9% 100 ML IVPB SCH ×2 (17:35→23:32)
[2019-08-09] MEDS: GoLYTELY 4,000 ml Bottle PO SCH (19:05)
[2019-08-09] MEDS: Atorvastatin Calcium 20 MG TAB PO SCH (19:58)
[2019-08-10] MEDS: Piperacillin/Tazobactam 3.375 GM in Sodium Chloride 0.9% 100 ML IVPB SCH ×4 (05:40→23:41)
[2019-08-10 05:53] LABS: Hemoglobin 12.4 g/dL (14.0-18.0); Mean Corpuscular HGB CONC 33.3 g/dL (32.0-36.0); Mean Corpuscular Hemoglobin 28.7 pg (27.0-31.0); Mean Corpuscular Volume 86.3 fL (78.0-98.0); Mean Platelet Volume 6.7 fL (7.4-10.4); Platelet Count 336 thou/uL (130-400); RBC Distribution Width 12.5 % (11.5-14.5); Red Blood Cell (RBC) Count 4.31 mill/uL (4.70-6.10); White Blood Cell (WBC) Count 13.5 thou/uL (4.8-10.8)
[2019-08-10 06:18] LABS: Anion Gap 14 mmol/L (10-20); BUN (Urea Nitrogen) 10 mg/dL (8.4-25.7); CRP (Inflammatory) 8.64 mg/dL (= or < 0.5); Calc. Creatinine Clearance 144 mL/min (70-130); Calcium 8.4 mg/dL (7.8-10.44); Carbon Dioxide 23 mmol/L (23-31); Chloride 103 mmol/L (98-107); Estimated GFR-MDRD Greater than 90; Glucose 80 mg/dL (80-115); Potassium 3.6 mmol/L (3.5-5.1); Sodium 136 mmol/L (136-145)
[2019-08-10 06:33] LABS: HBSAg Index 0.21 S/CO (0-0.99); Hep B Surf AB Non-Reactive (NonReactive); Hep B Surf Ag Non-Reactive S/CO (NonReactive)
[2019-08-10] MEDS: metroNIDAZOLE 500 MG in Premix Bag 1 BAG IVPB SCH ×3 (08:16→23:41)
[2019-08-10] MEDS: NIFEdipine XL 60 MG TAB PO SCH (08:17)
[2019-08-10] MEDS: Allopurinol 100 MG TAB PO SCH (08:17)
[2019-08-10] MEDS: Aspirin 81 mg Enteric Coated Tablet PO SCH (08:23)
[2019-08-10] MEDS: Acetaminophen 325 MG TAB PO PRN (15:50)
[2019-08-10] MEDS: Atorvastatin Calcium 20 MG TAB PO SCH (19:57)
--- NOTE | 2019-08-10 21:35 | PRG ---
DATE OF SERVICE: 08/10/2019 REASON FOR CONSULTATION: Right lower quadrant abdominal pain, abnormal GI imaging, and ulceration of the ileum consistent with ileitis. SUBJECTIVE: The patient states that his right lower quadrant abdominal pain has improved when compared to previous today and he has been able to tolerate a diet without difficulty. He also states that with having a bowel movement earlier today, his pain has significantly improved and is only now passing flatus occasionally. Otherwise, he denies any nausea, vomiting, fevers, chills, GI bleeding, dysphagia, or odynophagia. OBJECTIVE: VITAL SIGNS: Temperature 98, pulse 88, blood pressure 143/77, respiratory rate 18, saturating 97% on room air. GENERAL: The patient is lying in bed, in no acute distress. Alert and oriented x4. CARDIOVASCULAR: Regular rate and rhythm. RESPIRATORY: Clear to auscultation bilaterally. ABDOMEN: Normoactive bowel sounds. Soft, nondistended. Tenderness to palpation in the right lower quadrant. EXTREMITIES: No cyanosis, clubbing, or edema. LABORATORY DATA: CBC with a white blood cell count of 13.5, hemoglobin 12.4, hematocrit 37.1, platelets 336. Chemistry with a sodium of 136, potassium 3.6, chloride 103, CO2 of 23, BUN 10, creatinine 0.71, glucose 80. CRP 8.64, ESR 59. Biopsies of the terminal ileum were normal with no abnormalities identified. Further random biopsies of the colon were unremarkable and the rectal polyp removed was read as a hyperplastic polyp with zero malignancy potential. IMAGING DATA: No current GI imaging is available for review. ASSESSMENT AND PLAN: The patient is a 69-year-old male with past medical history of coronary artery disease, hypertension, and hyperlipidemia, presenting with right lower quadrant abdominal pain and GI imaging showing terminal ileitis, now status post colonoscopy with biopsies more indicative of an infectious process rather than inflammatory bowel disease. Right lower quadrant abdominal pain/terminal ileitis. The patient initially presented with increased right lower quadrant abdominal pain that had been present for at least the last year, but becoming more frequent prior to admission. On initial evaluation, the patient was noted to have an increased white blood cell count as well as imaging consistent with terminal ileitis. He subsequently underwent colonoscopy on August 09, 2019, with the finding of small ulcerations within the terminal ileum; however, biopsies of these ulcerations were read as normal with no evidence of infection or Crohn disease at this time with more conservative management with IV antibiotics. His pain is now improving in addition to having multiple bowel movements without any difficulty. At this time, the more likely explanation for his terminal ileitis would have been infectious type process, although infectious stool studies were negative making the exact causative organism unlikely to elucidate at this time. Given the lack of evidence of inflammatory bowel disease on biopsies, I would refrain from any steroid administration at this time. RECOMMENDATIONS: 1. Pain control per primary team. 2. Continue the patient on IV antibiotics while inpatient, we will consider transferring the patient to [facility] as an outpatient for a total duration of therapy of 7 to 10 days. 3. We would have the patient follow up in the GI clinic in 3 weeks after discharge for further evaluation. 4. I will order a urine chlamydia probe as a possible etiology for his terminal ileitis. If the patient's abdominal pain is improved tomorrow and all labs have been obtained, he could be potentially discharged to home with oral antibiotics and follow up in the outpatient GI Clinic. We will sign off at this time. Please call with any questions. Job ID: [id number]
[2019-08-11] MEDS: Piperacillin/Tazobactam 3.375 GM in Sodium Chloride 0.9% 100 ML IVPB SCH ×3 (05:37→17:44)
[2019-08-11] MEDS: NIFEdipine XL 60 MG TAB PO SCH (08:20)
[2019-08-11] MEDS: Allopurinol 100 MG TAB PO SCH (08:20)
[2019-08-11] MEDS: Aspirin 81 mg Enteric Coated Tablet PO SCH (08:20)
[2019-08-11 08:57] LABS: Hemoglobin 12.7 g/dL (14.0-18.0); Mean Corpuscular HGB CONC 33.1 g/dL (32.0-36.0); Mean Corpuscular Hemoglobin 28.8 pg (27.0-31.0); Mean Corpuscular Volume 87.1 fL (78.0-98.0); Platelet Count 381 thou/uL (130-400); RBC Distribution Width 12.4 % (11.5-14.5); White Blood Cell (WBC) Count 14.3 thou/uL (4.8-10.8)
[2019-08-11] MEDS ORDERED: Iopamidol 370 76% 100 ML VIAL ONE (09:41)
[2019-08-11] MEDS: Polyethylene Glycol 3350 17 GM Packet PO SCH (11:25)
--- NOTE | 2019-08-11 13:10 | CT ---
CT ABDOMEN WITH IV CONTRAST: Oral contrast was administered. INDICATION: Follow-up colitis with persistent abdominal pain. Comparison made to exam of 08/05/2019. FINDINGS: Lung bases clear. Liver, spleen, and pancreas are unremarkable and unchanged. Adrenal glands and kidneys unremarkable. There is now small bowel dilatation which has developed since the prior study. There is persistent in flammatory change involving the terminal ileum with evidence of luminal narrowing and this now appear s to be producing moderate grade small bowel obstruction. There are small diverticula seen in the ter [place] ileum and at the adjacent right colon and the findings could represent focal area of diverticul itis, although other ileal and inflammatory changes cannot be excluded. The appendix remains unremarkable in appearance. Images through the pelvis show distended bladder. IMPRESSION: Persistent inflammatory process in the right lower quadrant which primarily involves the terminal ile um with luminal narrowing. There is now moderate grade small bowel obstruction as a result of this pr ocess. POS: RUTH
--- NOTE | 2019-08-11 13:22 | PDOC.HOSPP ---
- Subjective Encounter Date: 08/10/19 Encounter Time: 15:30 Subjective: F/u: abdominal pain The patient reported that his abdominal pain had improved slightly. Antibiotics were switched to zosyn. He stated that he did not have a ride to go home. He still gets intermittent sharp pain in his RUQ Biopsies from colonoscopy came back normal - Objective Vital Signs & Weight: Vital Signs (12 hours) Temp Pulse Resp BP BP Pulse Ox 08/11/19 08:20 90 133/79 08/11/19 08:00 98 08/11/19 07:47 98.3 F 90 16 133/79 98 Weight Admit Weight 225 lb Weight 225 lb I&O: 08/10/19 08/11/19 08/12/19 06:59 06:59 06:59 Intake Total 2240 Balance 2240 Result Diagrams: 08/11/19 08:31 08/10/19 05:30 Hospitalist ROS - Review of Systems Constitutional: denies: fever, chills Respiratory: denies: cough, dry - Medication Medications: Active Medications Generic Name Dose Route Start Last Admin Trade Name Freq PRN Reason Stop Dose Admin Acetaminophen 650 mg 08/05/19 13:03 08/10/19 15:50 Tylenol PO 650 mg Q4H PRN Administration Headache/Fever/Mild Pain (1-3) Allopurinol 100 mg 08/06/19 09:00 08/11/19 08:20 Zyloprim PO 100 mg DAILY ALBARO Administration Aspirin 81 mg 08/06/19 09:00 08/11/19 08:20 Ecotrin PO 81 mg DAILY ALBARO Administration Atorvastatin Calcium 20 mg 08/06/19 21:00 08/10/19 19:57 Lipitor PO 20 mg HS ALBARO Administration Piperacillin Sod/Tazobactam 100 mls @ 200 mls/hr 08/09/19 18:00 08/11/19 11: 27 Sod 3.375 gm/ Sodium Chloride IVPB 100 mls Q6HR ALBARO Administration Lactulose 30 gm 08/11/19 09:00 08/11/19 11:25 Lactulose PO Not Given BID ALBARO Morphine Sulfate 2 mg 08/07/19 09:40 08/09/19 14:15 Morphine SLOW IVP 2 mg Q4H PRN Administration Moderate to Severe Pain (6-10) Nifedipine 60 mg 08/08/19 09:00 08/11/19 08:20 Procardia Xl PO 60 mg DAILY ALBARO Administration Polyethylene Glycol 17 gm 08/11/19 09:00 08/11/19 11:25 Miralax PO Not Given DAILY ALBARO Sodium Chloride 10 ml 08/05/19 21:00 08/11/19 11:27 Flush - Normal Saline IVF 10 ml Q12HR ALBARO Administration Sodium Chloride 10 ml 08/05/19 12:29 08/07/19 15:32 Flush - Normal Saline IVF 10 ml PRN PRN Administration Saline Flush - Exam General Appearance: awake alert Eye: PERRL, anicteric sclera ENT: normocephalic atraumatic, no oropharyngeal lesions Neck: supple, no JVD Heart: RRR, no murmur, no gallops, no rubs Respiratory: CTAB, no wheezes, no rales, no ronchi, normal percussion Gastrointestinal: soft Gastrointestinal - other findings: abdomen distended. RUQ and RLQ tenderness Extremities: no cyanosis, no clubbing, no edema Skin: normal turgor, no lesions, no rashes Neurological: cranial nerve grossly intact, normal sensation to touch Hosp A/P - Plan ECHO: EF 55-60%, diastolic dysfunction, mild MR, mild TR CT abdomen: circumferential wall thickening and mild dilation of terminal ileum. Less prominent at the cecum. Chest Xray: cardiomegaly, borderline pulmonary vascular congestion This is 69 year old male who presented with sepsis from colitis Sepsis secondary to colitis - patient spiked fever to 101.7, HR 100, WBC 16.6 on admission. Blood cultures, UA and chest X ray show no signs of infection. CT scan showed colitis. Stool cultures and C diff negative - CT scan consistent with colitis. S/p colonoscopy. Biopsies normal. Possibly infectious per GI - MRI enterography consistent with ileitis. CRP elevated -continue zosyn and flagyl #CAD s/p CABG #Elevated troponin- likely demand ischemia #Diastolic CHF - indeterminate, then resolved. Noted to have prominent calcification of coronary arteries on CT scan - ECHO shows no wall motion abnormalities. EKG shows no new changes. No chest pain currently -continue aspirin and statin Abdominal aorta aneurysm - noted up to 2.[address] scan. Outpatient follow up Hypertension - controlled - continue nifedipine DVt prophylaxis: enoxaparin Code status; full code
--- NOTE | 2019-08-11 13:23 | PDOC.HOSPP ---
- Subjective Encounter Date: 08/11/19 Encounter Time: 07:30 Subjective: F/u: abdominal pain The patient states he continues to have sharp abdominal pain. He can tolerate cream of tomato soup, but gets pain eating grits and oatmeal. No nausea or vomiting. He hasn't had a good bowel movement in a week, reports his stools are just liquid. He states "the antibiotics I've gotten so far haven't done shit." - Objective Vital Signs & Weight: Vital Signs (12 hours) Temp Pulse Resp BP BP Pulse Ox 08/11/19 08:20 90 133/79 08/11/19 08:00 98 08/11/19 07:47 98.3 F 90 16 133/79 98 Weight Admit Weight 225 lb Weight 225 lb I&O: 08/10/19 08/11/19 08/12/19 06:59 06:59 06:59 Intake Total 2240 Balance 2240 Result Diagrams: 08/11/19 08:31 08/10/19 05:30 Hospitalist ROS - Review of Systems Constitutional: denies: fever, chills - Medication Medications: Active Medications Generic Name Dose Route Start Last Admin Trade Name Freq PRN Reason Stop Dose Admin Acetaminophen 650 mg 08/05/19 13:03 08/10/19 15:50 Tylenol PO 650 mg Q4H PRN Administration Headache/Fever/Mild Pain (1-3) Allopurinol 100 mg 08/06/19 09:00 08/11/19 08:20 Zyloprim PO 100 mg DAILY ALBARO Administration Aspirin 81 mg 08/06/19 09:00 08/11/19 08:20 Ecotrin PO 81 mg DAILY ALBARO Administration Atorvastatin Calcium 20 mg 08/06/19 21:00 08/10/19 19:57 Lipitor PO 20 mg HS ALBARO Administration Piperacillin Sod/Tazobactam 100 mls @ 200 mls/hr 08/09/19 18:00 08/11/19 11: 27 Sod 3.375 gm/ Sodium Chloride IVPB 100 mls Q6HR ALBARO Administration Lactulose 30 gm 08/11/19 09:00 08/11/19 11:25 Lactulose PO Not Given BID ALBARO Morphine Sulfate 2 mg 08/07/19 09:40 08/09/19 14:15 Morphine SLOW IVP 2 mg Q4H PRN Administration Moderate to Severe Pain (6-10) Nifedipine 60 mg 08/08/19 09:00 08/11/19 08:20 Procardia Xl PO 60 mg DAILY ALBARO Administration Polyethylene Glycol 17 gm 08/11/19 09:00 08/11/19 11:25 Miralax PO Not Given DAILY ALBARO Sodium Chloride 10 ml 08/05/19 21:00 08/11/19 11:27 Flush - Normal Saline IVF 10 ml Q12HR ALBARO Administration Sodium Chloride 10 ml 08/05/19 12:29 08/07/19 15:32 Flush - Normal Saline IVF 10 ml PRN PRN Administration Saline Flush - Exam General Appearance: NAD, awake alert Eye: PERRL, anicteric sclera ENT: normocephalic atraumatic, no oropharyngeal lesions Neck: no JVD Heart: RRR, no murmur, no gallops, no rubs Respiratory: no wheezes, no rales Gastrointestinal: soft Gastrointestinal - other findings: abdomen distended, hypoactive bowel sounds. RLQ and RUQ tenderness Extremities: no cyanosis, no clubbing, no edema Skin: normal turgor, no lesions, no rashes Hosp A/P - Plan ECHO: EF 55-60%, diastolic dysfunction, mild MR, mild TR CT abdomen: circumferential wall thickening and mild dilation of terminal ileum. Less prominent at the cecum. Chest Xray: cardiomegaly, borderline pulmonary vascular congestion MRI abdomen: prominent wall thickening with stenosis present at level of terminal ileum consistent with acute terminal ileitis This is 69 year old male who presented with sepsis from colitis Sepsis secondary to colitis Acute terminal ileitis - patient spiked fever to 101.7, HR 100, WBC 16.6 on admission. Blood cultures, UA and chest X ray show no signs of infection. CT scan showed colitis. Stool cultures and C diff negative. S/p colonoscopy. Biopsies normal. - MRI enterography shows terminal ileitis. CRP elevated, but no clear ulcerations to suggest Crohn's per GI - continue augmentin. Discontinue flagyl - repeat CT scan today with contrast shows small bowel obstruction. Will keep NPO and consult general surgery - ordered US abdomen as well #CAD s/p CABG #Elevated troponin- likely demand ischemia #Diastolic CHF - indeterminate, then resolved. Noted to have prominent calcification of coronary arteries on CT scan - ECHO shows no wall motion abnormalities. EKG shows no new changes. No chest pain currently -continue aspirin and statin Abdominal aorta aneurysm - noted up to 2.[address] scan. Outpatient follow up Hypertension - controlled - continue nifedipine DVt prophylaxis: enoxaparin Code status; full code
--- NOTE | 2019-08-11 14:25 | ULT ---
EXAM: US Gallbladder RUQ CLINICAL HISTORY: Right upper quadrant pain. COMPARISON: None. FINDINGS: Pancreas: Obscured by bowel gas Liver:Hepatic parenchyma has a normal echotexture. No hepatic masses or intrahepatic biliary dilatati on. Right hepatic lobe: 15.6 cm Limited evaluation left hepatic lobe. Gallbladder: Sonographic evidence of cholelithiasis. Gallbladder wall is not thickened. No pericholec ystic cystic fluid. Judd's sign:Negative Portal Vein: Patent. Appropriate directional flow Bile ducts: 0.7 cm common bile duct diameter Right kidney: No hydronephrosis. Right kidney measures 11 cm in length. IMPRESSION: 1. Sonographic evidence of cholelithiasis without definite sonographic evidence of cholecystitis 2. Common bile duct diameter at the upper limits of normal for patient this age. Patient has undergon e a recent abdomen MRI which does not demonstrate any evidence of choledocholithiasis. Additional imaging if clinically warranted.
[2019-08-11] MEDS: Morphine 2 MG/ML SYRINGE SLOW IVP PRN (14:52)
--- NOTE | 2019-08-11 16:54 | PQF ---
CLINICAL DOCUMENTATION IMPROVEMENT CLARIFICATION FORM: ICD-10 Updated PLEASE DO AN ADDENDUM TO THE PROGRESS NOTE WITH ANY DOCUMENTATION UPDATES OR ADDITIONS AND CARRY THROUGH TO DC SUMMARY. THANK YOU. DATE: 08/11/19 ATTN: DR. RICARDO Please exercise your independent, professional judgment in responding to the clarification form. Clinical indicators are provided on the bottom of this form for your review Please check appropriate box(s): HEART FAILURE: A. ACUITY [ ] Acute [ ] Acute on Chronic [ X ] Chronic B. TYPE [ ] Systolic / HFrEF [ X] Diastolic / HFpEF [ ] Combined Systolic / Diastolic [ ] Hypertensive Heart and Kidney disease [ ] Hypertensive Heart Disease [ ] Hypertensive Kidney Disease [ ] Other diagnosis [ ] Unable to determine In addition, please specify: Present on Admission (POA): [ ] Yes [ ] No [ ] Unable to determine For continuity of documentation, please document condition throughout progress notes and discharge summary. Thank You. CLINICAL INDICATORS - SIGNS / SYMPTOMS / LABS / RESULTS AND LOCATION IN EMR PROGRESS NOTE 08/10: "DIASTOLIC CHF" ECHO REPORT: "LVEF ESTIMATED AT 55-60% "E/A FLOW REVERSAL NOTED. SUGGESTIVE OF DIASTOLIC DYSFUNCTION" RISKS: SEPSIS (PROGRESS NOTE 08/10) H/O CAD (PROGRESS NOTE 08/10) TREATMENT: ECHOCARDIOGRAM (08/05) (This form is maintained as a part of the permanent medical record) 2014 [employer]. All Rights Reserved [employer] Certified Registered Nurse Practitioner [employer] [email or web address] Office: [phone] [facility]
[2019-08-11] MEDS: Atorvastatin Calcium 20 MG TAB PO SCH (20:11)
--- NOTE | 2019-08-11 20:32 | PRG ---
DATE OF SERVICE: 08/11/2019 REASON FOR CONSULTATION: Right lower quadrant abdominal pain and abnormal GI imaging consistent with ileitis. SUBJECTIVE: While the patient yesterday had improvement in his abdominal pain; this morning, he states that the right lower quadrant abdominal pain has increased in intensity, but is unchanged in location and character. He also adds that he has not been able to pass flatus nor had a bowel movement since yesterday afternoon. Otherwise, he denies any nausea, vomiting, fevers, chills, GI bleeding, dysphagia, or odynophagia. OBJECTIVE: VITAL SIGNS: Temperature 98.5, pulse 85, blood pressure 151/78, respiratory rate 18, and saturating 96% on room air. GENERAL: The patient was lying in bed, in no acute distress. Alert and oriented x4. CARDIOVASCULAR: Regular rate and rhythm. RESPIRATORY: Clear to auscultation bilaterally. ABDOMEN: Normoactive bowel sounds. Soft, nondistended. Increased tenderness to palpation in the right lower quadrant and periumbilical regions. EXTREMITIES: No cyanosis, clubbing, or edema. LABORATORY DATA: CBC with a white blood cell count of 14.3, hemoglobin 12.7, hematocrit 38.3, and platelets 381. Chemistry only with a TSH of 0.53. IMAGING DATA: CT scan with oral and IV contrast was obtained on August 11, 2019, which showed the acute appearance of small bowel dilatation, which has developed since the prior study. There was also persistent inflammatory change involving the terminal ileum with evidence of luminal narrowing that now seems to be producing a moderate grade small bowel obstruction. Small diverticula were seen within the terminal ileum and at the adjacent right colon. ASSESSMENT AND PLAN: The patient is a 69-year-old male with past medical history of coronary artery disease, hypertension, and hyperlipidemia, presenting with right lower quadrant abdominal pain with GI imaging showing terminal ileitis, but imaging now consistent with a small bowel obstruction with unknown etiology at this time. Terminal ileitis/small bowel obstruction. The patient initially presented with increased right lower quadrant abdominal pain that had been present for the least last year, but becoming more frequent prior to this admission. Thus far during this hospitalization, an infectious etiology was negative on infectious stool studies nor has the patient responded to antibiotic administration despite broadening coverage. Colonoscopy was performed on August 09, 2019, with the finding of small ulcerations within the terminal ileum, but no evidence of luminal narrowing or stenosis that could contribute to either small bowel obstruction or a diagnosis of Crohn disease. However, with the increase in the right lower quadrant abdominal pain, repeat imaging is now showing the presence of a moderate grade small bowel obstruction with unclear etiology. At this time, the origin of the small bowel obstruction and terminal ileitis is in question with current differential including infection, Crohn disease, ischemic process (less likely) and/or possible GI neoplasm (less likely). RECOMMENDATIONS: 1. Pain control per primary team. 2. Agree with consultation of General Surgery for evaluation of small bowel obstruction. 3. We would continue IV antibiotics as you are doing. 4. Followup on testing for chlamydia as a possible source of terminal ileitis in addition to celiac labs. At this time, a more definitive diagnosis is likely to be made by laparoscopy and possible resection of this region. We will defer to General Surgery as to whether or not this could be accomplished. We will continue to follow. Please call with any questions. Job ID: [id number]
[2019-08-11] MEDS ORDERED: Meropenem 2 GM, Admixture Fee 1 EACH in Sodium Chloride 0.9% 100 ML IVPB SCH (21:30)
[2019-08-12] MEDS: Piperacillin/Tazobactam 3.375 GM in Sodium Chloride 0.9% 100 ML IVPB SCH ×4 (00:17→20:59)
[2019-08-12 06:06] LABS: Hemoglobin 12.5 g/dL (14.0-18.0); Mean Corpuscular HGB CONC 33.3 g/dL (32.0-36.0); Mean Corpuscular Hemoglobin 29.3 pg (27.0-31.0); Mean Corpuscular Volume 87.9 fL (78.0-98.0); Mean Platelet Volume 6.6 fL (7.4-10.4); Platelet Count 417 thou/uL (130-400); RBC Distribution Width 12.5 % (11.5-14.5); Red Blood Cell (RBC) Count 4.26 mill/uL (4.70-6.10); White Blood Cell (WBC) Count 15.8 thou/uL (4.8-10.8)
[2019-08-12] MEDS: NIFEdipine XL 60 MG TAB PO SCH (08:58)
[2019-08-12] MEDS: Allopurinol 100 MG TAB PO SCH (08:58)
[2019-08-12] MEDS: Aspirin 81 mg Enteric Coated Tablet PO SCH (08:59)
[2019-08-12] MEDS: Polyethylene Glycol 3350 17 GM Packet PO SCH (08:59)
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
[2019-08-12 10:13] LABS: QuantiFERON-TB Gold Plus Negative (Negative)
[2019-08-12] MEDS ORDERED: Glycopyrrolate 0.2 MG/ML 5 ML SYRINGE ONE (11:19)
[2019-08-12] MEDS ORDERED: Succinylcholine Chloride 20 MG/ML 10 ml SYRINGE FS ONE (11:19)
[2019-08-12] MEDS ORDERED: PROPOFOL 200 MG/20 ML VIAL ONE (11:19)
[2019-08-12] MEDS ORDERED: Rocuronium Bromide 10 MG/ML (10ML VIAL) ONE (11:19)
[2019-08-12] MEDS ORDERED: Lidocaine 1% PF 5 ML VIAL ONE (11:19)
[2019-08-12] MEDS ORDERED: Ondansetron PF 4 MG/2 ML Vial ONE (11:19)
--- NOTE | 2019-08-12 13:35 | EKG ---
Test Reason : ABD PAIN Blood Pressure : / mmHG Vent. Rate : 092 BPM Atrial Rate : 092 BPM P-R Int : 170 ms QRS Dur : 162 ms QT Int : 434 ms P-R-T Axes : 051 -64 078 degrees QTc Int : 536 ms Sinus rhythm with Premature atrial complexes Right bundle branch block Left anterior fascicular block Bifascicular block Left ventricular hypertrophy with repolarization abnormality Abnormal ECG Confirmed by ARLEEN BARTHOLOMEW, HORACE ([id number]), supervising editor trailer ALBERTO GONZALEZ ([id number]) on 08/12/2019 1:34:52 PM Referred By: Confirmed By:HORACE BACON MD
--- NOTE | 2019-08-12 15:09 | PDOC.HOSPP ---
- Objective Vital Signs & Weight: Vital Signs (12 hours) Temp Pulse Resp BP BP Pulse Ox 08/12/19 08:58 84 154/79 H 08/12/19 08:09 98.7 F 84 20 154/74 H 97 08/12/19 08:00 97 Weight Admit Weight 225 lb Weight 225 lb I&O: 08/11/19 08/12/19 08/13/19 06:59 06:59 06:59 Intake Total 920 Balance 920 Result Diagrams: 08/12/19 05:54 08/10/19 05:30 Hospitalist ROS - Medication Medications: Active Medications Generic Name Dose Route Start Last Admin Trade Name Freq PRN Reason Stop Dose Admin Acetaminophen 650 mg 08/05/19 13:03 08/10/19 15:50 Tylenol PO 650 mg Q4H PRN Administration Headache/Fever/Mild Pain (1-3) Allopurinol 100 mg 08/06/19 09:00 08/12/19 08:58 Zyloprim PO 100 mg DAILY ALBARO Administration Aspirin 81 mg 08/06/19 09:00 08/12/19 08:59 Ecotrin PO 81 mg DAILY ALBARO Administration Atorvastatin Calcium 20 mg 08/06/19 21:00 08/11/19 20:11 Lipitor PO 20 mg HS ALBARO Administration Piperacillin Sod/Tazobactam 100 mls @ 200 mls/hr 08/09/19 18:00 08/12/19 11: 30 Sod 3.375 gm/ Sodium Chloride IVPB 100 mls Q6HR ALBARO Administration Lactulose 30 gm 08/11/19 09:00 08/12/19 08:59 Lactulose PO Not Given BID ALBARO Morphine Sulfate 2 mg 08/07/19 09:40 08/11/19 14:52 Morphine SLOW IVP 2 mg Q4H PRN Administration Moderate to Severe Pain (6-10) Nifedipine 60 mg 08/08/19 09:00 08/12/19 08:58 Procardia Xl PO 60 mg DAILY ALBARO Administration Polyethylene Glycol 17 gm 08/11/19 09:00 08/12/19 08:59 Miralax PO Not Given DAILY ALBARO Sodium Chloride 10 ml 08/05/19 21:00 08/12/19 09:00 Flush - Normal Saline IVF 10 ml Q12HR ALBARO Administration Sodium Chloride 10 ml 08/05/19 12:29 08/07/19 15:32 Flush - Normal Saline IVF 10 ml PRN PRN Administration Saline Flush Hosp A/P - Plan Sepsis secondary to colitis Acute terminal ileitis - patient spiked fever to 101.7, HR 100, WBC 16.6 on admission. Blood cultures, UA and chest X ray show no signs of infection. CT scan showed colitis. Stool cultures and C diff negative. S/p colonoscopy. Biopsies normal. - CT abdomen: circumferential wall thickening and mild dilation of terminal ileum. Less prominent at the cecum. - MRI enterography shows terminal ileitis. CRP elevated, but no clear ulcerations to suggest Crohn's per GI - continue augmentin. Discontinue flagyl - repeat CT scan today with contrast shows small bowel obstruction. -NPO - plan for dx laporacoscopy today. #CAD s/p CABG #Elevated troponin- likely demand ischemia #Diastolic CHF - indeterminate, then resolved. Noted to have prominent calcification of coronary arteries on CT scan - ECHO shows no wall motion abnormalities. EKG shows no new changes. No chest pain currently -EF 55-60%, diastolic dysfunction, mild MR, mild TR -aspirin and statin Abdominal aorta aneurysm - noted up to 2.[address] scan. - Outpatient follow up Hypertension - continue nifedipine DVt prophylaxis: enoxaparin Code status; full code
[2019-08-12] MEDS ORDERED: Lidocaine 1% w/Epinephrine 1:100K 20 ML VIAL ONE (15:41)
[2019-08-12] MEDS ORDERED: Bupivacaine PF 0.5% 30 ML VIAL ONE (15:41)
[2019-08-12] MEDS ORDERED: Midazolam HCl 2 mg/2 ml Vial ONE (15:44)
[2019-08-12] MEDS ORDERED: Fentanyl 100 MCG/2 ML VIAL ONE ×3 (15:44→18:24)
[2019-08-12] MEDS ORDERED: Fentanyl 250 MCG/5 ML VIAL ONE (16:26)
[2019-08-12] MEDS ORDERED: Naloxone HCl 0.4 mg/ml Vial IV PRN (17:57)
[2019-08-12] MEDS ORDERED: Ondansetron HCl/PF 4 MG/2 ML Vial IVP PRN (17:57)
[2019-08-12] MEDS ORDERED: diphenhydrAMINE 50 MG/ML VIAL IVP PRN (17:57)
[2019-08-12] MEDS ORDERED: Ondansetron PF 4 MG/2 ML Vial IVP PRN (17:57)
[2019-08-12] MEDS ORDERED: Promethazine HCl 25 MG/ML VIAL SLOW IVP PRN (17:57)
[2019-08-12] MEDS ORDERED: diphenhydrAMINE 25 MG CAP PO PRN (17:57)
[2019-08-12] MEDS ORDERED: diphenhydrAMINE 50 MG/ML VIAL IM PRN (17:57)
[2019-08-12] MEDS ORDERED: Zolpidem Tartrate 5 MG TAB PO PRN (17:57)
[2019-08-12] MEDS ORDERED: Promethazine HCl 25 MG/ML VIAL IM PRN ×2 (17:57)
[2019-08-12] MEDS ORDERED: Communication Order-Pharmacy FS SCH (18:00)
--- NOTE | 2019-08-12 18:12 | OP ---
DATE OF PROCEDURE: 08/12/2019 PREOPERATIVE DIAGNOSES: Abdominal pain status post colonoscopy, two CAT scans, upper endoscopy in the recent past with abnormal CAT scan showing terminal ileitis. POSTOPERATIVE DIAGNOSES: 1. Abdominal pain status post colonoscopy, two CAT scans, upper endoscopy in the recent past with abnormal CAT scan showing terminal ileitis. 2. Abscess, right colon near the proximal right colon in the cecal area with walled off abscesses proximally to the lateral abdominal wall where he is having pain, unappreciated by CAT scan. PROCEDURES PERFORMED: Laparoscopy, converted to laparotomy with right colon resection, ileocolic anastomosis, abdominal washout, skin closed loosely with musa, Telfa puja, and BETSY. ANESTHESIA: General anesthesia. ESTIMATED BLOOD LOSS: Less than 100. DESCRIPTION OF PROCEDURE: The patient was taken to the operating room where under general anesthesia, a Brady catheter placed. Abdomen was clipped of hair, prepared with ChloraPrep and draped in routine fashion. Left lateral subcostal incision was made. Pneumoperitoneum to 15 mmHg obtained with a Veress needle, replaced with a 5 port. Left lower quadrant lateral incision made and a 5 port placed. Left mid lateral abdominal incision made and a 5 port placed. There were some omental adhesions near the right colon. The ileum was adherent to the abdominal wall. The terminal ileum was identified and it was inspected, approximating the area where the terminal ileum adherent to the right colon and the right abdominal wall, that was carefully peeled off. There were some areas of small abscesses. The ileum, however, did not appear to be violated. There was indurated process near the proximal colon in the cecal area. For this reason, a midline incision was made and carried down to skin, subcutaneous tissue, and midline fascia. Bookwalter retractor used. The right colon, cecum, and terminal ileum mobilized, taken down the peritoneal reflection. The gastrocolic ligament on the proximal transverse colon taken down, mobilizing the hepatic flexure, mobilized carefully. Duodenum identified. The ileum appeared to be secondary involving inflammatory process. There was an abscess against the proximal colon. The appendix appeared to be normal. Appendix mobilized along with the colon. Right colectomy was undertaken. Mesentery divided between clamps, ligating with 2-0 silk ties. LigaSure was used at the points. Proximal transverse colon divided with a JOE stapler, approximately 1 foot of ileum dissected free and the ileum divided with the JOE stapler. Mesentery divided between clamps and 2-0 silk ties. LigaSure used at times. Ileal specimen resected, submitted to Pathology. Ileocolic anastomosis created with 4 fires of the JOE stapler. Good anastomosis was palpated. Mesenteric defect closed with 3-0 and 2-0 silk. The ileocolic seromuscular sutures of 3-0 silk placed, strengthening the anastomosis. Good lumen was palpated. Sponge, needle, and instrument counts were correct. Abdominal cavity irrigated. Irrigant evacuated. Seprafilm placed between the viscera. Abdominal wall fascia closed with #1 PDS. Skin and subcutaneous tissues irrigated. Gloves changed. Skin approximated with musa loosely. Telfa puja applied and BETSY applied. The patient tolerated the procedure well. Job ID: [id number]
[2019-08-12] MEDS ORDERED: HYDROmorphone 0.5 MG/0.5 ML SYRINGE ONE ×3 (18:31→18:59)
[2019-08-12] MEDS ORDERED: Promethazine HCl 25 MG/ML VIAL ONE (19:36)
--- NOTE | 2019-08-12 19:55 | PRG ---
DATE OF SERVICE: 08/12/2019 REASON FOR CONSULTATION: Right lower quadrant abdominal pain and abnormal GI imaging consistent with ileitis. SUBJECTIVE: Today, the patient states that his right lower quadrant abdominal pain is unchanged when compared to the last 24 to 48 hours. He is currently n.p.o. for possible laparoscopy or later today. Otherwise, he denies any nausea, vomiting, fevers, chills, GI bleeding, dysphagia, or odynophagia. OBJECTIVE: VITAL SIGNS: Temperature 98.7, pulse 84, blood pressure 154/79, respiratory rate 20, saturating 97% on room air. GENERAL: The patient is lying in bed, in no acute distress. Alert and oriented x4. CARDIOVASCULAR: Regular rate and rhythm. RESPIRATORY: Clear to auscultation bilaterally. ABDOMEN: Normoactive bowel sounds. Soft, nondistended. Tenderness to palpation in the right lower quadrant and periumbilical regions. EXTREMITIES: No cyanosis, clubbing, or edema. LABORATORY DATA: CBC with a white blood cell count of 15.8, hemoglobin 12.5, hematocrit 37.4, platelets 417. IMAGING DATA: No current GI imaging is available for review. ASSESSMENT AND PLAN: The patient is a 69-year-old male with past medical history of coronary artery disease, hypertension, and hyperlipidemia, presenting with right lower quadrant abdominal pain and GI imaging showing terminal ileitis, but with the evolving imaging, now showing small bowel obstruction with plans for laparoscopic evaluation at this time. Terminal ileitis/small-bowel obstruction. The patient initially presented with progressively worsening right lower quadrant abdominal pain for the last year, becoming more frequent prior to admission. During this admission, the patient had undergone infectious stool studies that were negative, colonoscopy that was essentially negative except for small ulcerations within the terminal ileum, but biopsies did not show any histologic abnormalities; however, repeat imaging on August 11, 2019, showed the presence of a possible evolving small-bowel obstruction, for which the patient is scheduled for laparoscopy later today. RECOMMENDATIONS: 1. Pain control per primary team. 2. Await operative findings by General Surgery Service. 3. Continue with IV antibiotics. 4. We will follow up on Pathology results of any surgical specimens to further evaluate possible etiology of his abdominal pain. We will continue to follow peripherally at this time. Please call with any questions. Job ID: [id number]
[2019-08-12] MEDS: NS 0.9% w/ 20 MEQ KCL 1,000 ML/1,000 ML BAG IV SCH (20:59)
[2019-08-12] MEDS: Enoxaparin Sodium 40 MG/0.4 ML SYRINGE SC SCH (20:59)
[2019-08-12 21:02] LABS: Anion Gap 14 mmol/L (10-20); BUN (Urea Nitrogen) 5 mg/dL (8.4-25.7); Calc. Creatinine Clearance 121 mL/min (70-130); Calcium 8.4 mg/dL (7.8-10.44); Carbon Dioxide 23 mmol/L (23-31); Chloride 103 mmol/L (98-107); Estimated GFR-MDRD Greater than 90; Glucose 164 mg/dL (80-115); Potassium 3.7 mmol/L (3.5-5.1); Sodium 136 mmol/L (136-145)
[2019-08-12] MEDS: Piperacillin/Tazobactam 4.5 GM in Sodium Chloride 0.9% 100 ML IVPB SCH (23:08)
[2019-08-12] MEDS: Ketorolac Tromethamine 30 MG/ML VIAL IVP SCH (23:08)
[2019-08-13] MEDS: NS 0.9% w/ 20 MEQ KCL 1,000 ML/1,000 ML BAG IV SCH ×4 (01:21→20:26)
[2019-08-13 05:20] LABS: #Basophils 0.1 thou/uL (0.0-0.2); #Eosinphils 0.1 thou/uL (0.0-0.7); #Lymphocytes 0.6 thou/uL (1.20-3.40); #Neutrophils 13.2 thou/uL (1.40-6.50); %Basophils 0.8 % (0.0-1.0); %Eosinophils 0.4 % (0.0-10.0); %Lymphocytes 4.2 % (21.0-51.0); %Monocytes 6.9 % (0.0-10.0); %Neutrophils 87.7 % (42.0-75.0); Hemoglobin 13.9 g/dL (14.0-18.0); Mean Corpuscular Hemoglobin 28.6 pg (27.0-31.0); Mean Corpuscular Volume 92.3 fL (78.0-98.0); Mean Platelet Volume 6.7 fL (7.4-10.4); Platelet Count 434 thou/uL (130-400); RBC Distribution Width 12.8 % (11.5-14.5); Red Blood Cell (RBC) Count 4.85 mill/uL (4.70-6.10)
[2019-08-13] MEDS: Piperacillin/Tazobactam 4.5 GM in Sodium Chloride 0.9% 100 ML IVPB SCH ×3 (05:28→17:19)
[2019-08-13] MEDS: Ketorolac Tromethamine 30 MG/ML VIAL IVP SCH ×3 (05:28→17:24)
[2019-08-13 05:44] LABS: ALT (SGPT) 13 U/L (8-55); AST (SGOT) 38 U/L (5-34); Albumin 3.1 g/dL (3.4-4.8); Alkaline Phosphatase 61 U/L (40-110); Anion Gap 13 mmol/L (10-20); BUN (Urea Nitrogen) 5 mg/dL (8.4-25.7); Bilirubin, Total 0.4 mg/dL (0.2-1.2); Calc. Creatinine Clearance 131 mL/min (70-130); Calcium 8.1 mg/dL (7.8-10.44); Carbon Dioxide 20 mmol/L (23-31); Chloride 105 mmol/L (98-107); Estimated GFR-MDRD Greater than 90; Globulin 3.1 g/dL (2.4-3.5); Glucose 108 mg/dL (80-115); Magnesium 1.5 mg/dL (1.6-2.6); Potassium 4.3 mmol/L (3.5-5.1); Protein, Total 6.2 g/dL (5.8-8.1); Sodium 134 mmol/L (136-145)
[2019-08-13 09:24] LABS: Chlam.trachomatis by PCR,Urine Not Detected (NotDetected)
[2019-08-13] MEDS: Pantoprazole 40 MG VIAL IVP SCH (09:31)
[2019-08-13] MEDS: NIFEdipine XL 60 MG TAB PO SCH (09:31)
[2019-08-13] MEDS: Aspirin 81 mg Enteric Coated Tablet PO SCH (09:31)
--- NOTE | 2019-08-13 13:28 | PDOC.HOSPP ---
- Subjective Encounter Date: 08/13/19 Encounter Time: 10:45 Subjective: little upset. feels not very good w.. his stomach, on ice chips. afebrile, wbcs remains the same around 15K. s/p laporascopey with R. Colon resection, ileocolic anastomosis. - Objective Vital Signs & Weight: Vital Signs (12 hours) Temp Pulse Resp BP Pulse Ox 08/13/19 11:34 98.3 F 77 18 149/79 H 96 08/13/19 07:13 98.7 F 91 18 154/79 H 96 Weight Admit Weight 225 lb Weight 225 lb I&O: 08/12/19 08/13/19 08/14/19 06:59 06:59 06:59 Intake Total 920 Output Total 875 Balance 920 -875 Result Diagrams: 08/13/19 05:11 08/13/19 05:11 Additional Labs: Accuchecks 08/12/19 18:12 POC Glucose 115 H Hospitalist ROS - Medication Medications: Active Medications Generic Name Dose Route Start Last Admin Trade Name Amanda PRN Reason Stop Dose Admin Aspirin 81 mg 08/06/19 09:00 08/13/19 09:31 Ecotrin PO 81 mg DAILY ALBARO Administration Enoxaparin Sodium 40 mg 08/12/19 21:00 08/12/19 20:59 Lovenox SC 40 mg 2100 ALBARO Administration Potassium Chloride/Sodium Chloride 1,000 ml in 1,000 mls @ 150 mls/hr 18:15 08/13/19 03:25 Ns 0.9% W/ 20 Meq Kcl IV 1,000 mls .Q6H40M ALBARO Administration Piperacillin Sod/Tazobactam 100 mls @ 200 mls/hr 08/12/19 23:59 08/13/19 12: 52 Sod 4.5 gm/ Sodium Chloride IVPB 100 mls Q6HR ALBARO Administration Ketorolac Tromethamine 30 mg 08/12/19 23:59 08/13/19 12:51 Toradol IVP 08/17/19 23:59 30 mg Q6HR ALBARO Administration Nifedipine 60 mg 08/08/19 09:00 08/13/19 09:31 Procardia Xl PO 60 mg DAILY ALBARO Administration Pantoprazole Sodium 40 mg 08/13/19 09:00 08/13/19 09:31 Protonix IVP 40 mg DAILY ALBARO Administration Sodium Chloride 10 ml 08/05/19 21:00 08/13/19 09:32 Flush - Normal Saline IVF Not Given Q12HR ALBARO Sodium Chloride 10 ml 08/05/19 12:29 08/07/19 15:32 Flush - Normal Saline IVF 10 ml PRN PRN Administration Saline Flush - Exam General Appearance: NAD, awake alert Eye: PERRL ENT: normocephalic atraumatic Neck: supple Heart: RRR Respiratory: CTAB Gastrointestinal: normal bowel sounds Gastrointestinal - other findings: r.colon rescetion- no colostomy Hosp A/P - Plan Sepsis secondary to colitis Acute terminal ileitis - patient spiked fever to 101.7, HR 100, WBC 16.6 on admission. Blood cultures, UA and chest X ray show no signs of infection. CT scan showed colitis. Stool cultures and C diff negative. S/p colonoscopy. Biopsies normal. - CT abdomen: circumferential wall thickening and mild dilation of terminal ileum. Less prominent at the cecum. - MRI enterography shows terminal ileitis. CRP elevated, but no clear ulcerations to suggest Crohn's per GI - repeat CT shows small bowel obstruction. - s/p laporascopey with R. Colon resection, ileocolic anastomosis. on - on zosyn now #CAD s/p CABG #Elevated troponin- likely demand ischemia #Diastolic CHF - indeterminate, then resolved. Noted to have prominent calcification of coronary arteries on CT scan - ECHO shows no wall motion abnormalities. EKG shows no new changes. No chest pain currently -EF 55-60%, diastolic dysfunction, mild MR, mild TR -aspirin and statin Abdominal aortic aneurysm - noted up to 2.[address] scan. - Outpatient follow up Hypertension - continue nifedipine DVt prophylaxis: enoxaparin Code status; full code
[2019-08-13] MEDS ORDERED: Magnesium Sulfate 3 GM in Sodium Chloride 0.9% 100 ML IVPB SCH (13:30)
--- NOTE | 2019-08-13 15:37 | PRG ---
DATE OF SERVICE: 08/13/2019 SUBJECTIVE: Sofiya Rinaldi is one day status post right colectomy for pericecal abscess and smaller abscess and inflammation surrounding small bowel. The patient's pain is under fairly good control with the NEWSWRITER pump. His magnesium was low this morning, it was replaced. The patient is having some problems urinating and he is to have in and out cath, so Brady catheter will be replaced if necessary. OBJECTIVE: VITAL SIGNS: Temperature 98.3 degrees, pulse 77, blood pressure 149/79. GENERAL: He has not had any nausea or vomiting. He has not passed flatus. output. LUNGS: Clear to auscultation. CARDIAC: Regular rate and rhythm without murmur or gallop. ABDOMEN: Soft. Occasional bowel sounds. His abdominal wound looks good. Dressing is dry. LABORATORY DATA: White count 15, hemoglobin 13. Basic metabolic profile unremarkable. Sodium 134, potassium 4.3, BUN 5, creatinine 0.78. ASSESSMENT AND PLAN: At this point, the patient is doing well. Continue in and out may place Brady if he is in retention and leave it for a while. Overall, he seems to be doing well. We will start clear liquids. I have asked him to go very slow on this. Job ID: [id number]
[2019-08-13 15:54] LABS: EliA Celiac New Method **** NEW METHOD ****; t-Transglutaminase (tTG) IgA 1.9 EliAU/mL (<7 Negative); t-Transglutaminase (tTG) IgG 0.8 EliAU/mL (<7 Negative)
[2019-08-13] MEDS: fentaNYL Citrate/PF 2,000 MCG in Sodium Chloride 0.9% 60 ML IV PRN (17:16)
[2019-08-13] MEDS: Enoxaparin Sodium 40 MG/0.4 ML SYRINGE SC SCH (20:24)
[2019-08-13] MEDS: Tamsulosin HCl 0.4 MG CAP PO SCH (20:24)
[2019-08-14] MEDS: Piperacillin/Tazobactam 4.5 GM in Sodium Chloride 0.9% 100 ML IVPB SCH ×5 (00:13→23:37)
[2019-08-14] MEDS: Ketorolac Tromethamine 30 MG/ML VIAL IVP SCH ×5 (00:15→23:37)
[2019-08-14] MEDS: NS 0.9% w/ 20 MEQ KCL 1,000 ML/1,000 ML BAG IV SCH ×5 (04:18→18:08)
[2019-08-14 05:34] LABS: #Eosinphils 0.4 thou/uL (0.0-0.7); #Lymphocytes 0.9 thou/uL (1.20-3.40); #Monocytes 1.6 thou/uL (0.11-0.59); #Neutrophils 11.5 thou/uL (1.40-6.50); %Basophils 0.1 % (0.0-1.0); %Eosinophils 2.5 % (0.0-10.0); %Lymphocytes 6.4 % (21.0-51.0); %Monocytes 11.3 % (0.0-10.0); %Neutrophils 79.8 % (42.0-75.0); Hemoglobin 11.4 g/dL (14.0-18.0); Mean Corpuscular HGB CONC 33.8 g/dL (32.0-36.0); Mean Corpuscular Hemoglobin 29.7 pg (27.0-31.0); Mean Corpuscular Volume 87.8 fL (78.0-98.0); Mean Platelet Volume 6.7 fL (7.4-10.4); Platelet Count 402 thou/uL (130-400); RBC Distribution Width 12.6 % (11.5-14.5); Red Blood Cell (RBC) Count 3.83 mill/uL (4.70-6.10); White Blood Cell (WBC) Count 14.4 thou/uL (4.8-10.8)
[2019-08-14] MEDS: fentaNYL Citrate/PF 2,000 MCG in Sodium Chloride 0.9% 60 ML IV PRN ×2 (06:41→23:36)
[2019-08-14 09:13] LABS: Anion Gap 13 mmol/L (10-20); BUN (Urea Nitrogen) 8 mg/dL (8.4-25.7); Calc. Creatinine Clearance 131 mL/min (70-130); Carbon Dioxide 19 mmol/L (23-31); Chloride 108 mmol/L (98-107); Estimated GFR-MDRD Greater than 90; Glucose 78 mg/dL (80-115); Potassium 4.3 mmol/L (3.5-5.1); Sodium 136 mmol/L (136-145)
[2019-08-14] MEDS: NIFEdipine XL 60 MG TAB PO SCH (09:35)
[2019-08-14] MEDS: Aspirin 81 mg Enteric Coated Tablet PO SCH (09:35)
[2019-08-14] MEDS: Pantoprazole 40 MG VIAL IVP SCH (09:36)
--- NOTE | 2019-08-14 13:24 | PRG ---
DATE OF SERVICE: 08/14/2019 SUBJECTIVE: The patient appears to be stable without any indication of pain or distress. He denies any nausea or vomiting on clear liquids. He reports having tolerable postoperative pain. OBJECTIVE: VITAL SIGNS: Temperature is 98.3, blood pressure 128/76, and pulse of 86. GENERAL: He is alert, no distress, conversant. HEENT: Shows anicteric sclerae. Oropharynx is moist. CV: Exam shows normal S1 and S2. Regular rate and rhythm. CHEST: Shows breath sounds. ABDOMEN: Protuberant. Hypoactive bowel sounds. Midline incision with Bandages, dry. No significant tenderness to palpation. EXTREMITIES: No edema. LABORATORY DATA: WBCs 14.4, hemoglobin 11.4, and platelet count of 402. Electrolytes within normal range. Creatinine is 0.78. TB QuantiFERON is negative. ASSESSMENT: 1. Postoperative day #2. 2. Status post right hemicolectomy with abdominal washout for right lower quadrant abscesses. Clinical and endoscopic findings are not consistent with Crohn disease. Clinically, the patient is doing fine. 3. Coronary artery disease/hypertension/hyperlipidemia. RECOMMENDATIONS: 1. Continue increased activity, diet advancement per Surgery. 2. Overall doing fine from GI standpoint, no new recommendations. Job ID: [id number]
--- NOTE | 2019-08-14 15:39 | PDOC.HOSPP ---
- Subjective Encounter Date: 08/14/19 Encounter Time: 11:45 Subjective: pt little apprehensive, wants to eat, talk to RN, CLD to start soon. - Objective Vital Signs & Weight: Vital Signs (12 hours) Temp Pulse Resp BP Pulse Ox 08/14/19 11:20 98.3 F 86 18 128/76 90 L 08/14/19 09:35 93 08/14/19 07:36 98.3 F 93 18 128/73 96 08/14/19 03:58 98.4 F 85 18 136/84 96 Weight Admit Weight 225 lb Weight 225 lb I&O: 08/13/19 08/14/19 08/15/19 06:59 06:59 06:59 Intake Total 2000 Output Total 875 1400 Balance -875 600 Result Diagrams: 08/14/19 04:42 08/14/19 04:42 Hospitalist ROS - Medication Medications: Active Medications Generic Name Dose Route Start Last Admin Trade Name Freq PRN Reason Stop Dose Admin Aspirin 81 mg 08/06/19 09:00 08/14/19 09:35 Ecotrin PO 81 mg DAILY ALBARO Administration Enoxaparin Sodium 40 mg 08/12/19 21:00 08/13/19 20:24 Lovenox SC 40 mg 2100 ALBARO Administration Fentanyl Citrate 2,000 mcg/ 100 mls @ 0 mls/hr 08/12/19 17:57 08/14/19 06:41 Sodium Chloride IV 100 mls INF PRN Administration Pain As Directed Potassium Chloride/Sodium Chloride 1,000 ml in 1,000 mls @ 150 mls/hr 18:15 08/14/19 12:00 Ns 0.9% W/ 20 Meq Kcl IV Not Given .Q6H40M ALBARO Piperacillin Sod/Tazobactam 100 mls @ 200 mls/hr 08/12/19 23:59 08/14/19 12: 06 Sod 4.5 gm/ Sodium Chloride IVPB 100 mls Q6HR ALBARO Administration Ketorolac Tromethamine 30 mg 08/12/19 23:59 08/14/19 12:01 Toradol IVP 08/17/19 23:59 30 mg Q6HR ALBARO Administration Nifedipine 60 mg 08/08/19 09:00 08/14/19 09:35 Procardia Xl PO 60 mg DAILY ALBARO Administration Pantoprazole Sodium 40 mg 08/13/19 09:00 08/14/19 09:36 Protonix IVP 40 mg DAILY ALBARO Administration Sodium Chloride 10 ml 08/05/19 21:00 08/14/19 09:36 Flush - Normal Saline IVF Not Given Q12HR ALBARO Sodium Chloride 10 ml 08/05/19 12:29 08/07/19 15:32 Flush - Normal Saline IVF 10 ml PRN PRN Administration Saline Flush Tamsulosin HCl 0.4 mg 08/13/19 21:00 08/13/19 20:24 Flomax PO 0.4 mg HS ALBARO Administration - Exam General Appearance: NAD, awake alert Eye: PERRL ENT: normocephalic atraumatic Neck: supple Heart: RRR Respiratory: CTAB, normal chest expansion Gastrointestinal: soft, normal bowel sounds Hosp A/P - Plan Sepsis secondary to colitis Acute terminal ileitis - patient spiked fever to 101.7, HR 100, WBC 16.6 on admission. Blood cultures, UA and chest X ray show no signs of infection. CT scan showed colitis. Stool cultures and C diff negative. S/p colonoscopy. Biopsies normal. - CT abdomen: circumferential wall thickening and mild dilation of terminal ileum. Less prominent at the cecum. - MRI enterography shows terminal ileitis. CRP elevated, but no clear ulcerations to suggest Crohn's per GI---crohns r/out - repeat CT shows small bowel obstruction. - s/p laporascopey with R. Colon resection, ileocolic anastomosis. on -abdominal washout - RLQ abscess. - on zosyn now -- iwll stop on , if clinically stable. -CLD on . #CAD s/p CABG #Elevated troponin- likely demand ischemia #Diastolic CHF - indeterminate, then resolved. Noted to have prominent calcification of coronary arteries on CT scan - ECHO shows no wall motion abnormalities. EKG shows no new changes. No chest pain currently -EF 55-60%, diastolic dysfunction, mild MR, mild TR -aspirin and statin Abdominal aortic aneurysm - noted up to 2.[address] scan. - Outpatient follow up Hypertension - continue nifedipine DVt prophylaxis: enoxaparin Code status; full code CLD - advancing. PT consult.
--- NOTE | 2019-08-14 16:10 | PRG ---
DATE OF SERVICE: 08/14/2019 SUBJECTIVE: Sofiya Rinaldi is doing well today. He is tolerating his clear liquids. He has not had any nausea or vomiting. Pathology is pending. OBJECTIVE: VITAL SIGNS: Temperature 98.3 degrees, pulse 86, blood pressure 128/76. LUNGS: Clear to auscultation. CARDIAC: Regular rate and rhythm without murmur or gallop. ABDOMEN: Soft, slightly tympanitic , and distended. Occasional bowel sounds. No bowel movement, but a small amount of flatus. LABORATORY DATA: White count 14, hemoglobin 11.4. Sodium 136, potassium 4.3, BUN 8, creatinine 0.78. Magnesium corrected yesterday after magnesium supplements from 1.5 to 2. ASSESSMENT AND PLAN: 1. Postoperative right colectomy. Continue clear liquids. Go slow on diet advancement. Await better GI function. Wait till tympany resolves. 2. Low magnesium, replaced. 3. Continue Zosyn after right colectomy and intraabdominal abscess and BETSY suction dressing intact. Job ID: [id number]
[2019-08-14] MEDS: Enoxaparin Sodium 40 MG/0.4 ML SYRINGE SC SCH (20:08)
[2019-08-14] MEDS: Tamsulosin HCl 0.4 MG CAP PO SCH (20:08)
[2019-08-15 04:57] LABS: #Eosinphils 0.8 thou/uL (0.0-0.7); #Lymphocytes 0.9 thou/uL (1.20-3.40); #Monocytes 1.2 thou/uL (0.11-0.59); #Neutrophils 9.6 thou/uL (1.40-6.50); %Basophils 0.3 % (0.0-1.0); %Eosinophils 6.1 % (0.0-10.0); %Lymphocytes 7.3 % (21.0-51.0); %Monocytes 9.4 % (0.0-10.0); %Neutrophils 76.9 % (42.0-75.0); Hemoglobin 10.4 g/dL (14.0-18.0); Mean Corpuscular HGB CONC 33.2 g/dL (32.0-36.0); Mean Corpuscular Hemoglobin 29.2 pg (27.0-31.0); Mean Corpuscular Volume 87.9 fL (78.0-98.0); Mean Platelet Volume 6.7 fL (7.4-10.4); Platelet Count 411 thou/uL (130-400); RBC Distribution Width 12.5 % (11.5-14.5); Red Blood Cell (RBC) Count 3.57 mill/uL (4.70-6.10); White Blood Cell (WBC) Count 12.5 thou/uL (4.8-10.8)
[2019-08-15] MEDS: Ketorolac Tromethamine 30 MG/ML VIAL IVP SCH ×4 (05:42→23:09)
[2019-08-15] MEDS: Piperacillin/Tazobactam 4.5 GM in Sodium Chloride 0.9% 100 ML IVPB SCH ×4 (05:42→23:10)
[2019-08-15 09:30] LABS: Anion Gap 9 mmol/L (10-20); BUN (Urea Nitrogen) 4 mg/dL (8.4-25.7); Calc. Creatinine Clearance 148 mL/min (70-130); Calcium 8.2 mg/dL (7.8-10.44); Carbon Dioxide 22 mmol/L (23-31); Chloride 106 mmol/L (98-107); Estimated GFR-MDRD Greater than 90; Glucose 113 mg/dL (80-115); Sodium 133 mmol/L (136-145)
[2019-08-15] MEDS: Pantoprazole 40 MG VIAL IVP SCH (10:04)
[2019-08-15] MEDS: Aspirin 81 mg Enteric Coated Tablet PO SCH (10:04)
[2019-08-15] MEDS: NIFEdipine XL 60 MG TAB PO SCH (10:04)
[2019-08-15] MEDS: NS 0.9% w/ 20 MEQ KCL 1,000 ML/1,000 ML BAG IV SCH ×2 (10:19→10:20)
[2019-08-15] MEDS ORDERED: NS 0.9% w/ 20 MEQ KCL 1,000 ML/1,000 ML BAG IV SCH (10:58)
--- NOTE | 2019-08-15 11:11 | PRG ---
DATE OF SERVICE: 08/15/2019 SUBJECTIVE: Sofiya Rinaldi is doing well today. He is tolerating full liquids. He denies having any nausea or vomiting. OBJECTIVE: VITAL SIGNS: Temperature 97.4 degrees, pulse 85, respirations 18, blood pressure 129/70. LUNGS: Clear to auscultation. CARDIAC: Regular rate and rhythm without murmur or gallop. ABDOMEN: Soft, nontympanitic. BETSY suction dressing over incision. EXTREMITIES: Unremarkable. LABORATORY DATA: This morning, his white count is 12, hemoglobin 10. Basic metabolic profile is normal. Sodium 133. Pathology is pending. ASSESSMENT AND PLAN: 1. Status post right colectomy. Pathology pending. Continue IV antibiotics for peritoneal abscess. Await pathology. 2. Slow return of GI function. Continue full liquids. TKO his IV fluids. 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 Await better GI function. Job ID: [id number]
--- NOTE | 2019-08-15 13:09 | PDOC.HOSPP ---
- Subjective Encounter Date: 08/15/19 Encounter Time: 10:20 Subjective: on clears. lying, denies any abd pain today. - Objective Vital Signs & Weight: Vital Signs (12 hours) Temp Pulse Resp BP Pulse Ox 08/15/19 11:06 98.1 F 82 18 135/76 97 08/15/19 10:04 85 08/15/19 08:00 98 08/15/19 07:31 97.4 F L 85 18 129/70 98 08/15/19 03:02 98.5 F 102 H 18 124/69 94 L Weight Admit Weight 225 lb Weight 225 lb I&O: 08/14/19 08/15/19 08/16/19 06:59 06:59 06:59 Intake Total 1999 4850 Output Total 1400 1770 Balance 600 3080 Result Diagrams: 08/15/19 04:40 08/15/19 08:39 Hospitalist ROS - Medication Medications: Active Medications Generic Name Dose Route Start Last Admin Trade Name Freq PRN Reason Stop Dose Admin Aspirin 81 mg 08/06/19 09:00 08/15/19 10:04 Ecotrin PO 81 mg DAILY ALBARO Administration Enoxaparin Sodium 40 mg 08/12/19 21:00 08/14/19 20:08 Lovenox SC 40 mg 2100 ALBARO Administration Fentanyl Citrate 2,000 mcg/ 100 mls @ 0 mls/hr 08/12/19 17:57 08/14/19 23:36 Sodium Chloride IV 100 mls INF PRN Administration Pain As Directed Piperacillin Sod/Tazobactam 100 mls @ 200 mls/hr 08/12/19 23:59 08/15/19 12: 09 Sod 4.5 gm/ Sodium Chloride IVPB 100 mls Q6HR ALBARO Administration Ketorolac Tromethamine 30 mg 08/12/19 23:59 08/15/19 12:07 Toradol IVP 08/17/19 23:59 30 mg Q6HR ALBARO Administration Nifedipine 60 mg 08/08/19 09:00 08/15/19 10:04 Procardia Xl PO 60 mg DAILY ALBARO Administration Pantoprazole Sodium 40 mg 08/13/19 09:00 08/15/19 10:04 Protonix IVP 40 mg DAILY ALBARO Administration Sodium Chloride 10 ml 08/05/19 21:00 08/15/19 10:21 Flush - Normal Saline IVF 10 ml Q12HR ALBARO Administration Sodium Chloride 10 ml 08/05/19 12:29 08/07/19 15:32 Flush - Normal Saline IVF 10 ml PRN PRN Administration Saline Flush Tamsulosin HCl 0.4 mg 08/13/19 21:00 08/14/19 20:08 Flomax PO 0.4 mg HS ALBARO Administration - Exam General Appearance: NAD, awake alert Eye: PERRL ENT: normocephalic atraumatic Neck: supple Heart: RRR Respiratory: CTAB Gastrointestinal: soft, normal bowel sounds Hosp A/P - Plan Sepsis secondary to colitis Acute terminal ileitis - patient spiked fever to 101.7, HR 100, WBC 16.6 on admission. Blood cultures, UA and chest X ray show no signs of infection. CT scan showed colitis. Stool cultures and C diff negative. S/p colonoscopy. Biopsies normal. - CT abdomen: circumferential wall thickening and mild dilation of terminal ileum. Less prominent at the cecum. - MRI enterography shows terminal ileitis. CRP elevated, but no clear ulcerations to suggest Crohn's per GI---crohns r/out - repeat CT shows small bowel obstruction. - s/p laporascopey with R. Colon resection, ileocolic anastomosis. on -abdominal washout - RLQ abscess. - on zosyn now -- per sux, continue the abx. -CLD on .--for now CW CLD per surgery. #CAD s/p CABG #Elevated troponin- likely demand ischemia #Diastolic CHF - indeterminate, then resolved. Noted to have prominent calcification of coronary arteries on CT scan - ECHO shows no wall motion abnormalities. EKG shows no new changes. No chest pain currently -EF 55-60%, diastolic dysfunction, mild MR, mild TR -aspirin and statin Abdominal aortic aneurysm - noted up to 2.[address] scan. - Outpatient follow up Hypertension - continue nifedipine DVt prophylaxis: enoxaparin Code status; full code PT consult for post acute care plan.
[2019-08-15] MEDS: fentaNYL Citrate/PF 2,000 MCG in Sodium Chloride 0.9% 60 ML IV PRN (17:26)
[2019-08-15] MEDS: Tamsulosin HCl 0.4 MG CAP PO SCH (20:07)
[2019-08-15] MEDS: Enoxaparin Sodium 40 MG/0.4 ML SYRINGE SC SCH (20:07)
[2019-08-16 04:55] LABS: #Eosinphils 0.8 thou/uL (0.0-0.7); #Lymphocytes 0.9 thou/uL (1.20-3.40); #Monocytes 0.9 thou/uL (0.11-0.59); #Neutrophils 8.9 thou/uL (1.40-6.50); %Basophils 0.1 % (0.0-1.0); %Eosinophils 7.2 % (0.0-10.0); %Lymphocytes 7.7 % (21.0-51.0); %Monocytes 7.6 % (0.0-10.0); %Neutrophils 77.4 % (42.0-75.0); Hemoglobin 10.9 g/dL (14.0-18.0); Mean Corpuscular HGB CONC 32.4 g/dL (32.0-36.0); Mean Corpuscular Hemoglobin 28.2 pg (27.0-31.0); Mean Corpuscular Volume 86.9 fL (78.0-98.0); Mean Platelet Volume 6.5 fL (7.4-10.4); Platelet Count 471 thou/uL (130-400); RBC Distribution Width 12.5 % (11.5-14.5); Red Blood Cell (RBC) Count 3.87 mill/uL (4.70-6.10); White Blood Cell (WBC) Count 11.4 thou/uL (4.8-10.8)
[2019-08-16] MEDS: Piperacillin/Tazobactam 4.5 GM in Sodium Chloride 0.9% 100 ML IVPB SCH ×3 (05:25→18:31)
[2019-08-16] MEDS: Ketorolac Tromethamine 30 MG/ML VIAL IVP SCH ×3 (05:25→18:32)
[2019-08-16] MEDS: NIFEdipine XL 60 MG TAB PO SCH (08:56)
[2019-08-16] MEDS: Aspirin 81 mg Enteric Coated Tablet PO SCH (08:57)
[2019-08-16] MEDS: Pantoprazole 40 MG VIAL IVP SCH (08:57)
[2019-08-16 09:17] LABS: Anion Gap 12 mmol/L (10-20); BUN (Urea Nitrogen) Less than 4 mg/dL (8.4-25.7); Calc. Creatinine Clearance 148 mL/min (70-130); Calcium 8.6 mg/dL (7.8-10.44); Carbon Dioxide 23 mmol/L (23-31); Chloride 104 mmol/L (98-107); Estimated GFR-MDRD Greater than 90; Glucose 104 mg/dL (80-115); Potassium 3.9 mmol/L (3.5-5.1); Sodium 135 mmol/L (136-145)
[2019-08-16] MEDS ORDERED: Acetaminophen 500 MG TAB PO PRN (11:46)
[2019-08-16] MEDS ORDERED: traMADol HCl 50 MG TAB PO PRN (11:46)
[2019-08-16] MEDS ORDERED: Ibuprofen 600 MG TAB PO PRN (11:46)
--- NOTE | 2019-08-16 12:02 | PRG ---
DATE OF SERVICE: 08/16/2019 SUBJECTIVE: Sofiya Gentry, postop today #4, right colectomy without complaints this morning. Pathology is pending. OBJECTIVE: LUNGS: Clear to auscultation. CARDIAC: Regular rhythm. No murmur or gallop. ABDOMEN: Soft. He has had a bowel movement, passed flatus. LABORATORY DATA: White count 11 and hemoglobin 10.9. Basic metabolic profile is normal. ASSESSMENT AND PLAN: The patient is doing well. GI function resuming. Increase regular diet. Await pathology. Anticipate possible discharge home the next day or two, pending clinical course. His wound dressing was removed. Begin oral analgesics and discontinue HEAD ANIMAL TRAINER. Job ID: [id number]
[2019-08-16] MEDS ORDERED: hydrALAZINE 10 MG TAB PO SCH (15:00)
--- NOTE | 2019-08-16 16:00 | PDOC.HOSPP ---
- Subjective Encounter Date: 08/16/19 Encounter Time: 10:10 Subjective: pt is in his usual state of '[id number]'. jellow on the table. - Objective Vital Signs & Weight: Vital Signs (12 hours) Temp Pulse Resp BP BP Pulse Ox 08/16/19 15:06 98.2 F 70 16 162/84 H 98 08/16/19 11:18 98.7 F 84 18 154/74 H 93 L 08/16/19 08:56 76 157/78 H 08/16/19 08:00 98 08/16/19 07:51 98.7 F 76 18 157/78 H 98 Weight Admit Weight 225 lb Weight 225 lb I&O: 08/15/19 08/16/19 08/17/19 06:59 06:59 06:59 Intake Total 4850 3368 Output Total 1770 4400 Balance 3080 -1032 Result Diagrams: 08/16/19 04:41 08/16/19 08:46 Hospitalist ROS - Medication Medications: Active Medications Generic Name Dose Route Start Last Admin Trade Name Freq PRN Reason Stop Dose Admin Enoxaparin Sodium 40 mg 08/12/19 21:00 08/15/19 20:07 Lovenox SC 40 mg 2100 ALBARO Administration Piperacillin Sod/Tazobactam 100 mls @ 200 mls/hr 08/12/19 23:59 08/16/19 12: 07 Sod 4.5 gm/ Sodium Chloride IVPB 100 mls Q6HR ALBARO Administration Ketorolac Tromethamine 30 mg 08/12/19 23:59 08/16/19 12:07 Toradol IVP 08/17/19 23:59 30 mg Q6HR ALBARO Administration Sodium Chloride 10 ml 08/05/19 21:00 08/16/19 08:58 Flush - Normal Saline IVF 10 ml Q12HR ALBARO Administration Sodium Chloride 10 ml 08/05/19 12:29 08/07/19 15:32 Flush - Normal Saline IVF 10 ml PRN PRN Administration Saline Flush - Exam General Appearance: NAD Eye: PERRL, anicteric sclera ENT: normocephalic atraumatic Neck: supple, no lymphadenopathy Heart: RRR Respiratory: CTAB, normal chest expansion Gastrointestinal: normal bowel sounds Hosp A/P - Plan Sepsis secondary to colitis Acute terminal ileitis - patient spiked fever to 101.7, HR 100, WBC 16.6 on admission. Blood cultures, UA and chest X ray show no signs of infection. CT scan showed colitis. Stool cultures and C diff negative. S/p colonoscopy. Biopsies normal. - CT abdomen: circumferential wall thickening and mild dilation of terminal ileum. Less prominent at the cecum. - MRI enterography shows terminal ileitis. CRP elevated, but no clear ulcerations to suggest Crohn's per GI---crohns r/out - repeat CT shows small bowel obstruction. - s/p laporascopey with R. Colon resection, ileocolic anastomosis. on -abdominal washout - RLQ abscess. - on zosyn now -- per sux, continue the abx. -CLD on .--for now CW CLD per surgery. #CAD s/p CABG #Elevated troponin- likely demand ischemia #Diastolic CHF - indeterminate, then resolved. Noted to have prominent calcification of coronary arteries on CT scan - ECHO shows no wall motion abnormalities. EKG shows no new changes. No chest pain currently -EF 55-60%, diastolic dysfunction, mild MR, mild TR -aspirin and statin Abdominal aortic aneurysm - noted up to 2.[address] scan. - Outpatient follow up Hypertension - continue nifedipine DVt prophylaxis: enoxaparin Code status; full code PT consult for post acute care plan, when he is advanced to regular diet.
[2019-08-16] MEDS: hydrALAZINE 10 MG TAB PO SCH ×2 (16:36→20:00)
[2019-08-16] MEDS: traMADol HCl 50 MG TAB PO PRN (18:51)
[2019-08-16] MEDS: Enoxaparin Sodium 40 MG/0.4 ML SYRINGE SC SCH (20:01)
[2019-08-16] MEDS: Atorvastatin Calcium 40 MG TAB PO SCH (20:01)
[2019-08-17] MEDS: Piperacillin/Tazobactam 4.5 GM in Sodium Chloride 0.9% 100 ML IVPB SCH ×2 (00:25→05:54)
[2019-08-17] MEDS: Ketorolac Tromethamine 30 MG/ML VIAL IVP SCH ×2 (00:25→05:53)
[2019-08-17] MEDS: Aspirin 81 mg Enteric Coated Tablet PO SCH (08:15)
[2019-08-17] MEDS: Allopurinol 100 MG TAB PO SCH (08:15)
[2019-08-17] MEDS: Ferrous Sulfate 325 MG TAB PO SCH (08:16)
[2019-08-17] MEDS: Lisinopril 20 MG TAB PO SCH (08:16)
[2019-08-17] MEDS: NIFEdipine XL 60 MG TAB PO SCH (08:16)
[2019-08-17] MEDS: Tamsulosin HCl 0.4 MG CAP PO SCH (08:16)
[2019-08-17] MEDS: hydrALAZINE 10 MG TAB PO SCH ×3 (08:16→22:05)
[2019-08-17] MEDS ORDERED: Allopurinol 100 MG TAB PO SCH (09:00)
[2019-08-17] MEDS ORDERED: Lisinopril 10 MG TAB PO SCH (09:00)
[2019-08-17] MEDS ORDERED: Non-Formulary Item 1 EACH (Nifedipine [Nifedipine Er] 60 MG) PO SCH (09:00)
[2019-08-17] MEDS ORDERED: Non-Formulary Item 1 EACH (Omeprazole [Omeprazole] 1 CAP) PO SCH (09:00)
[2019-08-17] MEDS ORDERED: Non-Formulary Item 1 EACH (Iron [Iron] 65 MG) PO SCH (09:00)
[2019-08-17] MEDS: traMADol HCl 50 MG TAB PO PRN (09:59)
--- NOTE | 2019-08-17 10:31 | PRG ---
DATE OF SERVICE: 08/17/2019 SUBJECTIVE: Sofiya Rinaldi is doing well today. He is tolerating his diet. He is having bowel movements. He is passing flatus. He is a little upset that the DISTRICT SALES MANAGER pain pump was discontinued. He is still getting Toradol IV. He has tried the Ultram, but has not taken the ibuprofen or Tylenol. At this point, I have discontinued his Zosyn, started him on Augmentin p.o. for 5 days. I have asked his nurse to give him Tylenol 1000 mg, Ultram 100 mg, and ibuprofen 600 mg now together and encouraged him that he can take these for pain. I have written a prescription for Freeburn 7.5 in the case that the above-mentioned pain medication regimen is not sufficient. We will discontinue his Toradol, advance to regular diet. Pathology reveals perforated right colon diverticulum with abscess, and there is no evidence of inflammatory bowel disease. OBJECTIVE: LUNGS: Clear to auscultation. CARDIAC: Regular rate and rhythm without murmur or gallop. ABDOMEN: Soft and nontender. Good bowel sounds. Wound looks good. The patient is postoperative day #5. ASSESSMENT AND PLAN: 1. Perforated right colon diverticular abscess with multiple abscesses. We would recommend discharge home on Augmentin for 5 days, I have written the prescription. Pain medication trial; Tylenol, Ultram, and Motrin together, and if this is insufficient, we can prescribe Freeburn, I have written the prescription, discussed with his nurse. 2. The patient has good bowel function, tolerating regular diet. IV fluids have been discontinued. IV medications were discontinued. He could be discharged home today or tomorrow. Diet and activity as tolerated. No lifting over 25 pounds. Follow up my office next week for staple removal. He can shower and bathe washing the wound with soap and water in the shower or bath and patting it dry. He can leave the wound open while showering and bathing. Job ID: [id number]
[2019-08-17] MEDS: HYDROcodone/Acetaminophen 7.5/325 mg Tablet PO PRN ×2 (12:28→18:12)
--- NOTE | 2019-08-17 15:13 | PDOC.HOSPP ---
- Subjective Encounter Date: 08/17/19 Encounter Time: 12:40 Subjective: pt has no acute c/o -- diet advanced. - Objective Vital Signs & Weight: Vital Signs (12 hours) Temp Pulse Resp BP BP Pulse Ox 08/17/19 14:35 87 124/72 08/17/19 11:06 98.3 F 87 18 124/72 97 08/17/19 08:18 98.9 F 108 H 18 136/77 99 08/17/19 08:16 78 136/77 99 08/17/19 03:16 98.1 F 78 16 136/77 98 Weight Admit Weight 225 lb Weight 225 lb I&O: 08/16/19 08/17/19 08/18/19 06:59 06:59 06:59 Intake Total 3368 2040 Output Total 4400 Balance -1032 0 Result Diagrams: 08/16/19 04:41 08/16/19 08:46 Hospitalist ROS - Medication Medications: Active Medications Generic Name Dose Route Start Last Admin Trade Name Freq PRN Reason Stop Dose Admin Hydrocodone Bitart/Acetaminophen 1 tab 08/17/19 12:17 08/17/19 12:28 [place] 7.5/325 PO 1 tab QID PRN Administration Pain Allopurinol 100 mg 08/17/19 09:00 08/17/19 08:15 Zyloprim PO 100 mg QAM ALBARO Administration Aspirin 81 mg 08/17/19 09:00 08/17/19 08:15 Ecotrin PO 81 mg DAILY ALBARO Administration Atorvastatin Calcium 40 mg 08/16/19 21:00 08/16/19 20:01 Lipitor PO 40 mg HS ALBARO Administration Enoxaparin Sodium 40 mg 08/12/19 21:00 08/16/19 20:01 Lovenox SC 40 mg 2100 ALBARO Administration Ferrous Sulfate 325 mg 08/17/19 09:00 08/17/19 08:16 Feosol PO 325 mg DAILY ALBARO Administration Hydralazine HCl 10 mg 08/16/19 15:00 08/17/19 14:35 Apresoline PO 10 mg TID ALBARO Administration Ibuprofen 600 mg 08/16/19 11:46 08/17/19 09:59 Motrin PO 600 mg Q6H PRN Administration Pain Lisinopril 20 mg 08/17/19 09:00 08/17/19 08:16 Zestril PO 20 mg DAILY ALBARO Administration Metoprolol Succinate 50 mg 08/17/19 09:00 08/17/19 08:16 Toprol Xl PO 50 mg DAILY ALBARO Administration Nifedipine 60 mg 08/17/19 09:00 08/17/19 08:16 Procardia Xl PO 60 mg DAILY ALBARO Administration Pantoprazole Sodium 40 mg 08/17/19 09:00 08/17/19 08:16 Protonix PO 40 mg DAILY ALBARO Administration Sodium Chloride 10 ml 08/05/19 21:00 08/17/19 08:15 Flush - Normal Saline IVF 10 ml Q12HR ALBARO Administration Sodium Chloride 10 ml 08/05/19 12:29 08/07/19 15:32 Flush - Normal Saline IVF 10 ml PRN PRN Administration Saline Flush Tamsulosin HCl 0.4 mg 08/17/19 09:00 08/17/19 08:16 Flomax PO 0.4 mg DAILY ALBARO Administration - Exam General Appearance: NAD, awake alert Eye: PERRL ENT: normocephalic atraumatic Neck: supple Heart: RRR Respiratory: CTAB, normal chest expansion Gastrointestinal: soft, normal bowel sounds Hosp A/P - Plan Sepsis secondary to colitis Acute terminal ileitis - patient spiked fever to 101.7, HR 100, WBC 16.6 on admission. Blood cultures, UA and chest X ray show no signs of infection. CT scan showed colitis. Stool cultures and C diff negative. S/p colonoscopy. Biopsies normal. - CT abdomen: circumferential wall thickening and mild dilation of terminal ileum. Less prominent at the cecum. - MRI enterography shows terminal ileitis. CRP elevated, but no clear ulcerations to suggest Crohn's per GI---crohns r/out - repeat CT shows small bowel obstruction. - s/p laporascopey with R. Colon resection, ileocolic anastomosis. on -abdominal washout - RLQ abscess. - on zosyn now -- per sux, continue the abx. -CLD on .--for now CW CLD per surgery. #CAD s/p CABG #Elevated troponin- likely demand ischemia #Diastolic CHF - indeterminate, then resolved. Noted to have prominent calcification of coronary arteries on CT scan - ECHO shows no wall motion abnormalities. EKG shows no new changes. No chest pain currently -EF 55-60%, diastolic dysfunction, mild MR, mild TR -aspirin and statin Abdominal aortic aneurysm - noted up to 2.[address] scan. - Outpatient follow up Hypertension - continue nifedipine DVt prophylaxis: enoxaparin Code status; full code PT consult for post acute care plan, when he is advanced to regular diet. prob dc in am.
--- NOTE | 2019-08-17 18:42 | PRG ---
DATE OF SERVICE: 08/17/2019 Sofiya Rinaldi is doing well. He is having bowel movements. Tolerating his diet. Pain was not controlled well with Ultram, and thus [place] was ordered. A prescription of [place] left in the chart. A prescription of Augmentin for 5 days left in the chart. Pathology returned perforated right colon diverticulum with abscess. There is no evidence of inflammatory bowel disease. From a surgical standpoint, the patient could be discharged to home tomorrow, Wednesday. Dr. Fernando is covering. I will be out of town on Wednesday. Instructions were left in the computer. The patient should be ambulatory, but avoid lifting over 25 pounds. He can shower and bathe, washing his open wound with soap and water, patted dry. He has an appointment to see me in my office next week for staple removal. The date and time were left in the discharge instructions. Diet as tolerated. Dr. Fernando is covering and will see him tomorrow if any problem, but the patient is ready for discharge, can be discharged to home tomorrow . The patient was offered discharge this evening, but he states he would need to arrange transportation and we want to see how he did with a regular diet, ensure his pain was controlled. He should be able to be discharged to home in the morning. Job ID: [id number]
[2019-08-17] MEDS: Amoxicillin/Potassium Clav 500 MG TAB PO SCH (22:04)
[2019-08-17] MEDS: Atorvastatin Calcium 40 MG TAB PO SCH (22:04)
[2019-08-17] MEDS: Enoxaparin Sodium 40 MG/0.4 ML SYRINGE SC SCH (22:04)
[2019-08-17] MEDS: NS 0.9% w/ 20 MEQ KCL 1,000 ML/1,000 ML BAG IV SCH (22:12)
[2019-08-18] MEDS: HYDROcodone/Acetaminophen 7.5/325 mg Tablet PO PRN ×2 (00:01→08:53)
[2019-08-18] MEDS: NIFEdipine XL 60 MG TAB PO SCH (08:49)
[2019-08-18] MEDS: Allopurinol 100 MG TAB PO SCH (08:49)
[2019-08-18] MEDS: Amoxicillin/Potassium Clav 500 MG TAB PO SCH (08:49)
[2019-08-18] MEDS: Aspirin 81 mg Enteric Coated Tablet PO SCH (08:49)
[2019-08-18] MEDS: Lisinopril 20 MG TAB PO SCH (08:49)
[2019-08-18] MEDS: Tamsulosin HCl 0.4 MG CAP PO SCH (08:49)
[2019-08-18] MEDS: Ferrous Sulfate 325 MG TAB PO SCH (08:49)
[2019-08-18] MEDS: hydrALAZINE 10 MG TAB PO SCH (08:49)
[2019-08-18 11:33] VITALS: BP 158/72; TEMP 98.3
--- NOTE | 2019-08-18 14:25 | DIS ---
DATE OF ADMISSION: 08/05/2019 DATE OF DISCHARGE: 08/18/2019 DISCHARGE DIAGNOSES: 1. Sepsis secondary to colitis. 2. Acute terminal ileitis. 3. Small bowel obstruction, status post laparoscopy with right colon resection and ileocolic anastomosis on August 11. 4. Coronary artery disease, status post coronary artery bypass grafting. 5. Elevated troponin secondary to demand ischemia. 6. Diastolic congestive heart failure. 7. Abdominal aortic aneurysm, 2.[address] scan. 8. Hypertension. 9. Right lower quadrant abscess. DISCHARGE MEDICATIONS: 1. Allopurinol 100 mg daily. 2. Lipitor 40 mg daily. 3. Hydralazine 10 mg 3 times a day. 4. Iron 65 mg p.o. daily. 5. Lisinopril 20 mg daily. 6. Metoprolol succinate 50 mg daily. 7. Nifedipine 60 mg daily. 8. Omeprazole 40 mg daily. 9. Tamsulosin 0.4 mg daily. 10. Augmentin 500 mg q.12 hours for 5 days. 11. Aspirin 81 mg daily. PHYSICAL EXAMINATION: VITAL SIGNS: On the day of discharge, temperature 98.3, pulse 77, blood pressure 158/72, and saturating 98% in room air. GENERAL: The patient is alert and oriented x4. He is having his sandwich lunch. No abdominal symptoms or concerns at this point. He is quite ready to go home today. HOSPITAL COURSE: This is a 69-year-old -[place] male, who presented with abdominal pain and temperature of 101.7, heart rate of 100. His UA and chest x- ray without any sign of infection. CT showed colitis with circumferential wall thickening and dilation of the terminal ileum. MRI enterography showed terminal ileitis. CRP elevated. Repeat CT scan showed small bowel obstruction. He went through status post laparoscopy with right colon resection and ileocolic anastomosis on . He had a right lower quadrant abscess. The patient also had an abdominal washout. Continued with Zosyn. Cultures were negative. The patient started slowly on a clear liquid diet on and slowly to allow the GI function to restore. On the day of discharge, he is on a regular diet and tolerating. The patient is discharged with Augmentin for 5 day duration. He will follow up with Dr. Sims next week to remove the musa. DISCHARGE INSTRUCTION: Activity as tolerated. Regular diet. Follow up with Dr. Sims next week and he has an appointment on August 23 at 9:30 a.m. Next PCP followup in one week. TIME SPENT: Discharge time took over 30 minutes. Job ID: [id number] PEDRO
== END 2019-08-18 13:10 | disposition home or self-care (01) | DRG 853 ==
LOC: ERS 06:44 → T4-B 12:19 → SURG B 08-12 20:24
PROVIDERS: ADMIT Internal Medicine; ATTEND Internal Medicine
PROC: 3E0234Z Introduction of Serum, Toxoid and Vaccine into Muscle, Percutaneous Approach (ICD-10-PCS; 2019-08-06)
PROC: 0DBB8ZX Excision of Ileum, Via Natural or Artificial Opening Endoscopic, Diagnostic (ICD-10-PCS; 2019-08-09)
PROC: 0DBN8ZX Excision of Sigmoid Colon, Via Natural or Artificial Opening Endoscopic, Diagnostic (ICD-10-PCS; 2019-08-09)
PROC: 0DBE8ZX Excision of Large Intestine, Via Natural or Artificial Opening Endoscopic, Diagnostic (ICD-10-PCS; 2019-08-09)
PROC: 0DBP8ZZ Excision of Rectum, Via Natural or Artificial Opening Endoscopic (ICD-10-PCS; 2019-08-09)
PROC: 0DTF0ZZ Resection of Right Large Intestine, Open Approach (ICD-10-PCS; principal; 2019-08-12)
PROC: 0DJD4ZZ Inspection of Lower Intestinal Tract, Percutaneous Endoscopic Approach (ICD-10-PCS; 2019-08-12)
DX: A41.9 Sepsis, unspecified organism (principal); K65.1 Peritoneal abscess; K57.20 Diverticulitis of large intestine with perforation and abscess without bleeding; I24.8 Other forms of acute ischemic heart disease; I50.32 Chronic diastolic (congestive) heart failure; K50.014 Crohn's disease of small intestine with abscess; K50.012 Crohn's disease of small intestine with intestinal obstruction; I25.10 Atherosclerotic heart disease of native coronary artery without angina pectoris; I11.0 Hypertensive heart disease with heart failure; I71.4 Abdominal aortic aneurysm, without rupture; E78.5 Hyperlipidemia, unspecified; Z96.641 Presence of right artificial hip joint; K62.1 Rectal polyp; I08.1 Rheumatic disorders of both mitral and tricuspid valves; E87.6 Hypokalemia; Z95.1 Presence of aortocoronary bypass graft; Z79.899 Other long term (current) drug therapy; Z87.891 Personal history of nicotine dependence; Z53.31 Laparoscopic surgical procedure converted to open procedure; Z23 Encounter for immunization
CPT/HCPCS: 36415; 36416; 71045; 74177; 74183; 76705; 80048; 80053; 81003; 81015; 82550; 82553; 83516; 83690; 83735; 84443; 84484; 85025; 85027; 85652; 86140; 86480; 86706; 87040; 87045; 87046; 87081; 87324; 87328; 87329; 87340; 87427; 87449; 87491; 87591; 87633; 88305; 88307; 90471; 90670; 93005; 93306; 96361; 96365; 96367; 96375; C9113; G0009; J0744; J1170; J1610; J1650; J1885; J1956; J2001; J2250; J2270; J2405; J2543; J2550; J2704; J3010; J3475; J3480; J3490; Q9967; S0020

== ENCOUNTER 2021-06-05 10:18 | Outpatient (CLI) | payer MEDICARE, BC ==
[2021-06-05 12:46] LABS: Hemoglobin 12.9 g/dL (13.5-17.5); Mean Corpuscular HGB CONC 32.6 g/dL (32.0-36.0); Mean Corpuscular Hemoglobin 27.9 pg (27.0-33.0); Mean Corpuscular Volume 85.5 fl (81.2-95.1); Mean Platelet Volume 9.8 fl (7.4-10.4); Platelet Count 299 10x3/uL (150-450); RBC Distribution Width 13.7 % (11.5-14.5); Red Blood Cell (RBC) Count 4.63 10x6/uL (4.32-5.72); White Blood Cell (WBC) Count 6.8 10x3/uL (3.5-10.5)
[2021-06-05 12:47] LABS: Prothrombin Time 11.1 sec (9.5-12.1)
[2021-06-05 13:02] LABS: Anion Gap 18 mmol/L (10-20); BUN (Urea Nitrogen) 9 mg/dL (8.4-25.7); Calc. Creatinine Clearance 0 mL/min (70-130); Calcium 8.9 mg/dL (7.8-10.44); Carbon Dioxide 26 mmol/L (23-31); Chloride 103 mmol/L (98-107); Glucose 113 mg/dL (80-115); Potassium 3.5 mmol/L (3.5-5.1); Sodium 143 mmol/L (136-145)
[2021-06-05 19:17] LABS: SARS-CoV-2 PCR by NAA DETECTED (NotDetected)
== END 2021-06-05 10:19 | disposition home or self-care (01) ==
LOC: LABBT 10:18
PROVIDERS: ATTEND Internal Medicine Cardiovascular Disease
DX: U07.1 COVID-19 (principal); Z01.812 Encounter for preprocedural laboratory examination; I48.3 Typical atrial flutter
CPT/HCPCS: 80048; 85027; 85610; U0003; U0005

== ENCOUNTER 2021-07-01 07:46 | Day surgery (SDC) | payer MEDICARE ==
[2021-06-20 16:11] VITALS: BMI 36.5
[2021-07-01 09:18] LABS: #Eosinphils 0.3 thou/uL (0.0-0.7); #Lymphocytes 0.8 thou/uL (1.20-3.40); #Monocytes 0.8 thou/uL (0.11-0.59); #Neutrophils 5.8 thou/uL (1.40-6.50); %Basophils 0.2 % (0.0-1.0); %Eosinophils 3.9 % (0.0-10.0); %Lymphocytes 10.3 % (21.0-51.0); %Monocytes 10.6 % (0.0-10.0); Hemoglobin 11.3 g/dL (14.0-18.0); Mean Corpuscular HGB CONC 32.2 g/dL (32.0-36.0); Mean Corpuscular Hemoglobin 27.8 pg (27.0-31.0); Mean Corpuscular Volume 86.3 fL (78.0-98.0); Mean Platelet Volume 6.8 fL (7.4-10.4); Platelet Count 274 thou/uL (130-400); RBC Distribution Width 13.4 % (11.5-14.5); Red Blood Cell (RBC) Count 4.07 mill/uL (4.70-6.10); White Blood Cell (WBC) Count 7.7 thou/uL (4.8-10.8)
[2021-07-01 09:31] LABS: Anion Gap 13 mmol/L (10-20); BUN (Urea Nitrogen) 9 mg/dL (8.4-25.7); Calc. Creatinine Clearance 116 mL/min (70-130); Calcium 8.8 mg/dL (7.8-10.44); Carbon Dioxide 25 mmol/L (23-31); Chloride 105 mmol/L (98-107); Glucose 98 mg/dL (80-115); Potassium 3.1 mmol/L (3.5-5.1); Sodium 140 mmol/L (136-145)
[2021-07-01 09:32] LABS: INR-International Normal Ratio 1.4; Prothrombin Time 17.1 sec (12.0-14.7)
[2021-07-01] MEDS ORDERED: Heparin 10,000 UNITS/ 10 ML VIAL ONE (09:59)
[2021-07-01] MEDS ORDERED: Propofol 500 MG/50 ML VIAL ONE (10:30)
[2021-07-01] MEDS ORDERED: Fentanyl 100 MCG/2 ML VIAL ONE ×2 (10:31→12:11)
[2021-07-01] MEDS ORDERED: Lidocaine 1% PF 5 ML VIAL ONE (10:40)
[2021-07-01] MEDS ORDERED: Sodium Chloride 0.9% 10 ML ONE (13:09)
== END 2021-07-01 16:00 | disposition home or self-care (01) ==
LOC: CCL 07:46
PROVIDERS: ATTEND Internal Medicine Cardiovascular Disease
PROC: 02583ZZ Destruction of Conduction Mechanism, Percutaneous Approach (ICD-10-PCS; principal; 2021-07-01)
PROC: 02K83ZZ Map Conduction Mechanism, Percutaneous Approach (ICD-10-PCS; 2021-07-01)
DX: I48.3 Typical atrial flutter (principal); I73.9 Peripheral vascular disease, unspecified; I44.2 Atrioventricular block, complete; I10 Essential (primary) hypertension; I25.10 Atherosclerotic heart disease of native coronary artery without angina pectoris; G62.9 Polyneuropathy, unspecified; M19.90 Unspecified osteoarthritis, unspecified site; Z87.891 Personal history of nicotine dependence; Z79.01 Long term (current) use of anticoagulants; Z79.82 Long term (current) use of aspirin; Z79.899 Other long term (current) drug therapy; Z95.0 Presence of cardiac pacemaker; Z95.1 Presence of aortocoronary bypass graft
CPT/HCPCS: 80048; 85025; 85610; 93005; 93613; 93621; 93653; C1730; C1731; C1776; C1894; J1644; J2704; J3010

== ENCOUNTER 2021-10-13 00:18 | Inpatient (IN) | payer MEDICARE ==
[2021-10-13] MEDS ORDERED: Haloperidol Lactate 5 MG/ML VIAL ONE (01:29)
[2021-10-13] MEDS ORDERED: Ketorolac Tromethamine 30 MG/ML VIAL ONE (01:29)
[2021-10-13 01:57] LABS: #Eosinphils 0.1 thou/uL (0.0-0.7); #Monocytes 0.7 thou/uL (0.11-0.59); #Neutrophils 12.4 thou/uL (1.40-6.50); %Basophils 0.3 % (0.0-1.0); %Eosinophils 0.8 % (0.0-10.0); %Monocytes 5.1 % (0.0-10.0); %Neutrophils 86.9 % (42.0-75.0); Hemoglobin 12.9 g/dL (14.0-18.0); Mean Corpuscular HGB CONC 32.8 g/dL (32.0-36.0); Mean Corpuscular Hemoglobin 27.9 pg (27.0-31.0); Mean Corpuscular Volume 85.2 fL (78.0-98.0); Mean Platelet Volume 7.3 fL (7.4-10.4); Platelet Count 271 thou/uL (130-400); RBC Distribution Width 15.2 % (11.5-14.5); Red Blood Cell (RBC) Count 4.61 mill/uL (4.70-6.10); White Blood Cell (WBC) Count 14.3 thou/uL (4.8-10.8)
[2021-10-13 02:10] LABS: ALT (SGPT) 21 U/L (8-55); AST (SGOT) 20 U/L (5-34); Albumin 4.4 g/dL (3.4-4.8); Alkaline Phosphatase 102 U/L (40-110); Anion Gap 15 mmol/L (10-20); BUN (Urea Nitrogen) 12 mg/dL (8.4-25.7); Bilirubin, Total 0.4 mg/dL (0.2-1.2); Calc. Creatinine Clearance 0 mL/min (70-130); Calcium 9.7 mg/dL (7.8-10.44); Carbon Dioxide 26 mmol/L (23-31); Chloride 100 mmol/L (98-107); Globulin 3.5 g/dL (2.4-3.5); Glucose 126 mg/dL (80-115); Lipase 16 U/L (8-78); Potassium 3.8 mmol/L (3.5-5.1); Protein, Total 7.9 g/dL (5.8-8.1); Sodium 137 mmol/L (136-145)
[2021-10-13 03:03] LABS: Bacteria/HPF None Seen HPF (None Seen); Bilirubin Negative (Negative); Blood, Urine Negative (Negative); Clarity Clear (Clear); Glucose, Urine (Dipstick) Normal (Negative); Ketone, Urine Negative (Negative); Leukocyte Negative Leu/uL (Negative); Nitrite Negative (Negative); Protein, Urine (Dipstick) 100 mg/dL (Neg-Trace); RBC/HPF 0-3 HPF (0-3); Specific Gravity, Urine 1.041 (1.002-1.036); Squamous Epithelial 0-3 HPF (0-3); Urobilinogen Normal mg/dL (Less than 2); WBC/HPF 0-3 HPF (0-3)
[2021-10-13] MEDS ORDERED: Morphine 4 MG/ML VIAL ONE (04:50)
[2021-10-13] MEDS ORDERED: Ondansetron PF 4 MG/2 ML Vial ONE (05:52)
[2021-10-13] MEDS ORDERED: Sodium Chloride 0.9% 1,000 ML IV SCH (06:00)
[2021-10-13] MEDS ORDERED: Ondansetron PF 4 MG/2 ML Vial IVP PRN (06:50)
[2021-10-13] MEDS ORDERED: Ondansetron ODT 4 MG TAB PO PRN (06:50)
[2021-10-13] MEDS ORDERED: Acetaminophen 325 MG TAB PO PRN (06:50)
[2021-10-13] MEDS ORDERED: Sodium Chloride 0.9% 500 ML IV SCH (07:00)
[2021-10-13] MEDS ORDERED: Piperacillin/Tazobactam 3.375 GM in Sodium Chloride 0.9% 100 ML IVPB SCH ×2 (07:00→08:00)
[2021-10-13 08:15] LABS: Lactic Acid 0.9 mmol/L (0.5-2.2)
[2021-10-13] MEDS: Morphine 2 MG/ML VIAL SLOW IVP PRN ×2 (08:29→16:01)
[2021-10-13 08:54] VITALS: BMI 36.5
[2021-10-13] MEDS ORDERED: Lisinopril 10 MG TAB PO SCH (09:00)
[2021-10-13] MEDS ORDERED: hydrALAZINE 10 MG TAB PO SCH (09:00)
[2021-10-13] MEDS ORDERED: Non-Formulary Item 1 EACH (Nifedipine [Nifedipine Er] 60 MG Tablet.Er) PO SCH (09:00)
[2021-10-13] MEDS: Potassium Chloride 20 MEQ in Lactated Ringer's 1,000 ML IV SCH ×2 (09:50→16:03)
[2021-10-13] MEDS: Tamsulosin HCl 0.4 MG CAP PO SCH (09:58)
[2021-10-13] MEDS: hydrALAZINE 10 MG TAB PO SCH ×3 (09:58→20:35)
[2021-10-13] MEDS: NIFEdipine XL 60 MG TAB PO SCH (09:58)
[2021-10-13] MEDS: Lisinopril 20 MG TAB PO SCH (09:58)
[2021-10-13] MEDS: Pantoprazole 40 MG VIAL IVP SCH (09:59)
[2021-10-13 12:08] LABS: SARS-CoV-2 PCR by NAA Not Detected (NotDetected)
[2021-10-13] MEDS ORDERED: Electrolyte Replacement Protocol 1 EACH FS SCH (12:30)
[2021-10-13] MEDS ORDERED: Electrolyte Replacement Protocol FS PRN (12:45)
[2021-10-13] MEDS ORDERED: Iopamidol 370 76% 100 ML VIAL ONE (14:49)
[2021-10-13] MEDS ORDERED: hydrALAZINE 20 MG/ML VIAL SLOW IVP PRN (15:22)
[2021-10-13] MEDS: Piperacillin/Tazobactam 3.375 GM in Sodium Chloride 0.9% 100 ML IVPB SCH (15:57)
[2021-10-13] MEDS: Enoxaparin Sodium 40 MG/0.4 ML SYRINGE SC SCH (20:35)
[2021-10-14] MEDS: Potassium Chloride 20 MEQ in Lactated Ringer's 1,000 ML IV SCH ×3 (01:39→16:39)
[2021-10-14] MEDS: Piperacillin/Tazobactam 3.375 GM in Sodium Chloride 0.9% 100 ML IVPB SCH ×3 (01:40→16:02)
[2021-10-14] MEDS: Morphine 2 MG/ML VIAL SLOW IVP PRN (02:10)
[2021-10-14 05:35] LABS: #Eosinphils 0.1 thou/uL (0.0-0.7); #Lymphocytes 0.8 thou/uL (1.20-3.40); #Monocytes 0.8 thou/uL (0.11-0.59); #Neutrophils 9.4 thou/uL (1.40-6.50); %Basophils 0.3 % (0.0-1.0); %Eosinophils 0.9 % (0.0-10.0); %Lymphocytes 7.2 % (21.0-51.0); %Monocytes 6.9 % (0.0-10.0); %Neutrophils 84.7 % (42.0-75.0); Hemoglobin 12.5 g/dL (14.0-18.0); Mean Corpuscular HGB CONC 31.3 g/dL (32.0-36.0); Mean Corpuscular Hemoglobin 26.9 pg (27.0-31.0); Mean Corpuscular Volume 85.9 fL (78.0-98.0); Mean Platelet Volume 7.6 fL (7.4-10.4); Platelet Count 279 thou/uL (130-400); RBC Distribution Width 15.2 % (11.5-14.5); Red Blood Cell (RBC) Count 4.64 mill/uL (4.70-6.10); White Blood Cell (WBC) Count 11.1 thou/uL (4.8-10.8)
[2021-10-14 05:57] LABS: ALT (SGPT) 19 U/L (8-55); AST (SGOT) 21 U/L (5-34); Albumin 3.9 g/dL (3.4-4.8); Alkaline Phosphatase 96 U/L (40-110); Anion Gap 12 mmol/L (10-20); BUN (Urea Nitrogen) 11 mg/dL (8.4-25.7); Bilirubin, Total 0.6 mg/dL (0.2-1.2); Calc. Creatinine Clearance 120 mL/min (70-130); Calcium 9.2 mg/dL (7.8-10.44); Carbon Dioxide 26 mmol/L (23-31); Chloride 104 mmol/L (98-107); Globulin 3.4 g/dL (2.4-3.5); Glucose 101 mg/dL (80-115); Magnesium 2.5 mg/dL (1.6-2.6); Phosphorus 3.7 mg/dL (2.3-4.7); Potassium 4.3 mmol/L (3.5-5.1); Protein, Total 7.3 g/dL (5.8-8.1); Sodium 138 mmol/L (136-145)
[2021-10-14] MEDS: NIFEdipine XL 60 MG TAB PO SCH (09:57)
[2021-10-14] MEDS: Lisinopril 20 MG TAB PO SCH (09:57)
[2021-10-14] MEDS: hydrALAZINE 10 MG TAB PO SCH ×3 (09:57→22:34)
[2021-10-14] MEDS: Tamsulosin HCl 0.4 MG CAP PO SCH (09:58)
[2021-10-14] MEDS: Pantoprazole 40 MG VIAL IVP SCH (10:18)
[2021-10-14] MEDS ORDERED: MD-Gastroview 120 ML BOT ONE (15:26)
[2021-10-14] MEDS: Enoxaparin Sodium 40 MG/0.4 ML SYRINGE SC SCH (22:34)
[2021-10-15] MEDS: Piperacillin/Tazobactam 3.375 GM in Sodium Chloride 0.9% 100 ML IVPB SCH ×2 (01:15→08:47)
[2021-10-15] MEDS: Potassium Chloride 20 MEQ in Lactated Ringer's 1,000 ML IV SCH ×2 (01:15→09:01)
[2021-10-15 05:52] LABS: #Eosinphils 0.4 thou/uL (0.0-0.7); #Monocytes 1.1 thou/uL (0.11-0.59); %Basophils 0.3 % (0.0-1.0); %Eosinophils 3.7 % (0.0-10.0); %Lymphocytes 9.1 % (21.0-51.0); %Monocytes 10.8 % (0.0-10.0); %Neutrophils 76.1 % (42.0-75.0); Hemoglobin 11.6 g/dL (14.0-18.0); Mean Corpuscular HGB CONC 30.7 g/dL (32.0-36.0); Mean Corpuscular Hemoglobin 26.9 pg (27.0-31.0); Mean Corpuscular Volume 87.5 fL (78.0-98.0); Mean Platelet Volume 7.3 fL (7.4-10.4); Platelet Count 283 thou/uL (130-400); RBC Distribution Width 15.2 % (11.5-14.5); Red Blood Cell (RBC) Count 4.31 mill/uL (4.70-6.10); White Blood Cell (WBC) Count 10.6 thou/uL (4.8-10.8)
[2021-10-15 06:17] LABS: Anion Gap 14 mmol/L (10-20); BUN (Urea Nitrogen) 11 mg/dL (8.4-25.7); Calc. Creatinine Clearance 115 mL/min (70-130); Carbon Dioxide 25 mmol/L (23-31); Chloride 108 mmol/L (98-107); Glucose 85 mg/dL (80-115); Potassium 4.1 mmol/L (3.5-5.1); Sodium 143 mmol/L (136-145)
[2021-10-15] MEDS: Lisinopril 20 MG TAB PO SCH (08:46)
[2021-10-15] MEDS: NIFEdipine XL 60 MG TAB PO SCH (08:46)
[2021-10-15] MEDS: Tamsulosin HCl 0.4 MG CAP PO SCH (08:46)
[2021-10-15] MEDS: Pantoprazole 40 MG VIAL IVP SCH (08:47)
[2021-10-15] MEDS: hydrALAZINE 10 MG TAB PO SCH ×3 (09:00→20:17)
[2021-10-15] MEDS ORDERED: Ibuprofen 600 MG TAB PO PRN (10:37)
[2021-10-15] MEDS: Enoxaparin Sodium 40 MG/0.4 ML SYRINGE SC SCH (20:17)
[2021-10-15] MEDS ORDERED: Atorvastatin Calcium 40 MG TAB PO SCH (21:00)
[2021-10-15] MEDS ORDERED: Polyethylene Glycol 3350 17 GM Packet PO SCH (21:00)
[2021-10-16 07:48] VITALS: TEMP 97.8
[2021-10-16] MEDS: hydrALAZINE 10 MG TAB PO SCH (08:56)
[2021-10-16] MEDS: NIFEdipine XL 60 MG TAB PO SCH (08:56)
[2021-10-16] MEDS: Lisinopril 20 MG TAB PO SCH (08:56)
[2021-10-16] MEDS: Tamsulosin HCl 0.4 MG CAP PO SCH (08:56)
[2021-10-16 08:58] VITALS: BP 148/78
[2021-10-16] MEDS ORDERED: Allopurinol 100 MG TAB PO SCH (09:00)
[2021-10-16] MEDS ORDERED: Furosemide 20 MG TAB PO SCH (09:00)
== END 2021-10-16 10:45 | disposition home or self-care (01) | DRG 389 ==
LOC: ERS 00:18 → SURG A 04:53 → OBSVTOIN 12:30
PROVIDERS: ADMIT Internal Medicine; ATTEND Internal Medicine
PROC: 0D9770Z Drainage of Stomach, Pylorus with Drainage Device, Via Natural or Artificial Opening (ICD-10-PCS; principal; 2021-10-13)
DX: K56.51 Intestinal adhesions [bands], with partial obstruction (principal); I50.32 Chronic diastolic (congestive) heart failure; I48.92 Unspecified atrial flutter; Z20.822 Contact with and (suspected) exposure to COVID-19; M10.9 Gout, unspecified; M19.90 Unspecified osteoarthritis, unspecified site; I25.10 Atherosclerotic heart disease of native coronary artery without angina pectoris; E78.00 Pure hypercholesterolemia, unspecified; I73.9 Peripheral vascular disease, unspecified; I11.0 Hypertensive heart disease with heart failure; E66.9 Obesity, unspecified; E86.0 Dehydration; D72.829 Elevated white blood cell count, unspecified; D53.9 Nutritional anemia, unspecified; Z95.0 Presence of cardiac pacemaker; Z79.01 Long term (current) use of anticoagulants; Z79.82 Long term (current) use of aspirin; Z68.36 Body mass index [BMI] 36.0-36.9, adult; Z79.899 Other long term (current) drug therapy
CPT/HCPCS: 36415; 74018; 74019; 74022; 74177; 74250; 80048; 80053; 81003; 81015; 83605; 83690; 83735; 84100; 85025; 93005; 96374; 96375; C9113; J1630; J1650; J1885; J2270; J2405; J2543; J3480; J3490; J7030; J7050; J7120; Q9963; Q9967; U0003; U0005

== ENCOUNTER 2022-01-30 11:06 | Emergency (ER) | payer MEDICARE ==
[2022-01-30] MEDS ORDERED: HYDROcodone/Acetaminophen 5/325 mg Tablet ONE (14:02)
== END 2022-01-30 14:24 | disposition home or self-care (01) ==
LOC: ERS 11:06
DX: M79.604 Pain in right leg (principal); M10.9 Gout, unspecified; I10 Essential (primary) hypertension; E78.00 Pure hypercholesterolemia, unspecified; Z79.899 Other long term (current) drug therapy
CPT/HCPCS: 99283